=== PATIENT | male | born 1940 | race American Indian/Alaskan Native ===

== ENCOUNTER 2016-08-30 01:48 | Inpatient (IN) | payer MEDICARE ==
[2016-08-30 01:48] VITALS: BMI 23.7
[2016-08-30 02:43] LABS: BASO # 0.1 K/uL (0.0-0.2); EOS # 1.2 K/uL (0.0-0.7); EOS % 11.5 % (0.0-4.0); HEMATOCRIT 50.6 % (35.0-51.0); LYMPH # 2.6 K/uL (1.0-4.3); LYMPH % 24.5 % (20.0-40.0); MEAN CELL VOLUME 96.3 fL (80.0-94.0); MEAN CORPUSCULAR HEMOGLOBIN 31.4 pg (27.0-31.0); MEAN CORPUSCULAR HGB CONC 32.6 g/dL (33.0-37.0); MEAN PLATELET VOLUME 11.6 fL (7.2-11.7); MONO # 0.9 K/uL (0.0-0.8); MONO % 8.6 % (0.0-10.0); NRBC % 0.1 % (0.0-2.0); RED CELL DISTRIBUTION WIDTH 13.8 % (11.5-14.5); WHITE BLOOD COUNT 10.8 K/uL (4.8-10.8)
--- NOTE | 2016-08-30 02:57 | C.PDOC ---
History Of Present Illness 75 y/o male presents to the ED with complains of sudden SOB which onset [employer]. Pt history of COPD. Pt denies chest pain, dizziness, fever, weakness, numbness or any other complaints. Time Seen by Provider: 08/30/16 02:28 Chief Complaint (Nursing): Shortness Of Breath History Per: Patient History/Exam Limitations: no limitations Onset/Duration Of Symptoms: Hrs Current Symptoms Are (Timing): Still Present Severity: Moderate Associated Symptoms: denies: Fever, Chest Pain, Dizziness Recent travel outside of the [place]: No Past Medical History Reviewed: Historical Data, Nursing Documentation, Vital Signs Vital Signs: Last Vital Signs Temp Pulse 82 08/30/16 03:44 Resp 20 08/30/16 02:56 BP 154/110 H 08/30/16 02:56 Pulse Ox 97 08/30/16 06:08 - Medical History PMH: HTN, Hypercholesterolemia Surgical History: Pacemaker (DEFIBRILLATOR) - [employer] Procedures ASSISTANCE WITH RESPIRATORY VENTILATION, 24-96 HRS, CPAP (02/14/16) Family History: States: Unknown Family Hx - Social History Hx Alcohol Use: No Hx Substance Use: No - Immunization History Hx Tetanus Toxoid Vaccination: Yes Hx Influenza Vaccination: Yes Hx Pneumococcal Vaccination: Yes Review Of Systems Except As Marked, All Systems Reviewed And Found Negative. Constitutional: Negative for: Fever Cardiovascular: Negative for: Chest Pain Respiratory: Positive for: Shortness of Breath Neurological: Negative for: Weakness, Numbness, Dizziness Physical Exam - Physical Exam Appears: Non-toxic Skin: Warm, Dry, No Rash Head: Atraumatic, Normacephalic Oral Mucosa: Moist Throat: Normal, No Erythema, Other (no swelling) Neck: Normal ROM, Supple Chest: Symmetrical Respiratory: No Rales, Rhonchi (bilateral expiratory), Wheezing (bilateral expiratory), Other (mild respiratory distress) Extremity: No Pedal Edema Extremity: Bilateral: Atraumatic Neurological/Psych: Oriented x3, Normal Speech, Normal Motor, Normal Sensation ED Course And Treatment - Laboratory Results Result Diagrams: 08/30/16 02:40 08/30/16 02:40 O2 Sat by Pulse Oximetry: 97 (on room air) Pulse Ox Interpretation: Normal - CT Scan/US CTA chest Other Rad Studies (CT/US): Read By Radiologist, Radiology Report Reviewed CT/US Interpretation: EXAM: CT Angiography Chest With Intravenous Contrast. CLINICAL HISTORY: 75 years old, male; Pain; Chest pain; Additional info: Sob/ elevated d-dimer. TECHNIQUE: Axial computed tomographic angiography images of the chest with intravenous. contrast using pulmonary embolism protocol. This CT exam was performed using one or more of the. following dose reduction techniques: automated exposure control, adjustment of the mA and/or kV. according to patient size, and/or use of iterative reconstruction technique. Coronal and sagittal. reformatted images were created and reviewed. COMPARISON : No relevant prior studies available. FINDINGS: Pulmonary arteries: No pulmonary embolism. Aorta: Ectatic descending thoracic aorta measuring 3.7 cm in diameter. No thoracic aortic aneurysm. Lungs: Centrilobular and paraseptal emphysematous changes in the lung apices. 1.0 cm nodule right lower lobe. Bronchial wall thickening and mucus plugging in the lower lobes suggesting bronchitis. Pleural space: Unremarkable. No significant effusion. No pneumothorax. Heart: Unremarkable. No cardiomegaly. No significant pericardial effusion. No evidence of RV. dysfunction. Bones/joints: No acute fracture. No dislocation. Soft tissues: Unremarkable. Lymph nodes: Unremarkable. No enlarged lymph nodes. Tubes, lines and devices: Pacemaker. IMPRESSION: 1. No pulmonary embolism. 2. Centrilobular and paraseptal emphysematous changes in the lung apices. 3. 1.0 cm nodule right lower lobe. In both low-risk and high- risk patients, recommend CT at 3, 9 and. 24 months. Alternatively, consider dynamic contrast-enhanced CT, PET and/or biopsy. 4. Bronchial wall thickening and mucus plugging in the lower lobes suggesting bronchitis. Thank you for allowing us to participate in the care of your patient. Dictated and Authenticated by: Luca Jewell MD. 08/30/2016 5:49 AM Eastern Time ([place] & [place]) Disposition Discussed With : Antoni Issa Doctor Will See Patient In The: Hospital Counseled Patient/Family Regarding: Diagnosis - Disposition Disposition: HOSPITALIZED Disposition Time: 06:08 Condition: STABLE - POA Present On Arrival: None - Clinical Impression Clinical Impression: COPD with exacerbation - Scribe Statement The provider has reviewed the documentation as recorded by the Yane Mcgregor Provider Attestation: All medical record entries made by the Yane were at my direction and personally dictated by me. I have reviewed the chart and agree that the record accurately reflects my personal performance of the history, physical exam, medical decision making, and the department course for this patient. I have also personally directed, reviewed, and agree with the discharge instructions and disposition.
[2016-08-30 03:28] LABS: ALB/GLOB RATIO 1.1 (1.0-2.1); BILIRUBIN,TOTAL 0.4 mg/dL (0.2-1.3); TOTAL PROTEIN 7.7 g/dL (6.3-8.3)
[2016-08-30 03:29] LABS: CALCIUM 9.1 mg/dl (8.6-10.4)
[2016-08-30 03:40] LABS: TROPONIN I 0.02 ng/mL (0.00-0.120)
--- NOTE | 2016-08-30 09:06 | RAD ---
PROCEDURE: CHEST RADIOGRAPH, 1 VIEW HISTORY: SOB COMPARISON: None available. FINDINGS: LUNGS: Clear. PLEURA: No pneumothorax or pleural fluid seen. CARDIOVASCULAR: Mild cardiomegaly OSSEOUS STRUCTURES: No significant abnormalities. VISUALIZED UPPER ABDOMEN: Normal. OTHER FINDINGS: Dual lead pacemaker IMPRESSION: No active disease.
--- NOTE | 2016-08-30 09:39 | CT ---
PROCEDURE: CT Chest with contrast (Pulmonary Angiogram) HISTORY: SOB/ elevated D-dimer COMPARISON: None available. TECHNIQUE: Axial computed tomography images were obtained of the chest in the pulmonary arterial phase of enhancement. Coronal and sagittal reformatted images were created and reviewed. Intravenous contrast dose: 100 cc of Visipaque Radiation dose: Total exam DLP = 307 mGy-cm. FINDINGS: PULMONARY ARTERIES: Unremarkable. No pulmonary embolism. AORTA: No acute findings. No thoracic aortic aneurysm. LUNGS: There is an 8 mm nodule in the superior segment of the right lower lobe. This is seen on image 47 series 4. Three to six-month follow-up is suggested. There is peribronchial thickening bilaterally especially in the lower lobes consistent with bronchitis or bronchiectasis PLEURAL SPACES: Unremarkable. No effusion or pneuomothorax. HEART: Unremarkable. No cardiomegaly. No significant pericardial effusion. LYMPH NODES: No lymphadenopathy. BONES, CHEST WALL: Unremarkable. No fracture or destructive lesion OTHER FINDINGS: The report concurs with the preliminary [facility] report IMPRESSION: No evidence of pulmonary embolus. Peribronchial thickening consistent with bronchitis. 8 mm nodule in the superior segment of the right lower lobe. Follow-up recommended
--- NOTE | 2016-08-30 12:08 | CP.PCM.HP ---
History of Present Illness - History of Present Illness History of Present Illness: 75 yo Male pt with pmh of HTN, HLD,COPD, on Pacemaker c/o sudden onset SOB, productive cough with sputum no fever, nausea, vomiting chronic smoker, quit 3 months ago Present on Admission - Present on Admission Any Indicators Present on Admission: No Past Patient History - Infectious Disease Hx of Infectious Diseases: None - Past Medical History & Family History Past Medical History?: Yes - Past Social History Smoking Status: Never Smoked - CARDIAC Hx Hypercholesterolemia: Yes Hx Hypertension: Yes Hx Pacemaker: Yes (DEFIBRILLATOR) - PULMONARY Hx Respiratory Disorders: No - NEUROLOGICAL Hx Neurological Disorder: No - HEENT Hx HEENT Problems: No - RENAL Hx Chronic Kidney Disease: No - ENDOCRINE/METABOLIC Hx Endocrine Disorders: No - HEMATOLOGICAL/ONCOLOGICAL Hx Blood Disorders: No - INTEGUMENTARY Hx Dermatological Problems: No - MUSCULOSKELETAL/RHEUMATOLOGICAL Hx Musculoskeletal Disorders: No Hx Falls: No - GASTROINTESTINAL Hx Gastrointestinal Disorders: No - GENITOURINARY/GYNECOLOGICAL Hx Genitourinary Disorders: No - PSYCHIATRIC Hx Substance Use: No - SURGICAL HISTORY Other/Comment: PACEMAKER/DEFIBRILLATOR - ANESTHESIA Hx Anesthesia: Yes Hx Anesthesia Reactions: No Meds Home Medications: Home Medication List Medication Instructions Recorded Confirmed Type Amiodarone [Cordarone] 200 mg PO DAILY #30 tab 09/05/16 Rx Fluticasone/Salmeterol 250/50 1 puff INH RQ12 #1 inh 09/05/16 Rx [Advair Diskus 250/50] Furosemide [Lasix] 40 mg PO DAILY #0 tab 09/05/16 Rx Losartan [Cozaar] 50 mg PO Q12H #60 tab 09/05/16 Rx Methylprednisolone [Medrol Dose 4 mg PO DAILY #21 mg 09/05/16 Rx Pack (21 tabs)] Metoprolol Tartrate [Lopressor] 50 mg PO Q12 #60 tab 09/05/16 Rx Montelukast [Singulair] 10 mg PO HS #30 tab 09/05/16 Rx Tiotropium [Spiriva] 18 mcg INH RQ24 #30 cap 09/05/16 Rx Allergies/Adverse Reactions: Allergies Allergy/AdvReac Type Severity Reaction Status Date / Time No Known Allergies Allergy Verified 08/30/16 01:54 Physical Exam - Constitutional Appears: Well - Eye Exam Eye Exam: EOMI, Normal appearance, PERRL Pupil Exam: NORMAL ACCOMODATION, PERRL - ENT Exam ENT Exam: Mucous Membranes Moist, Normal Exam - Neck Exam Neck exam: Positive for: Normal Inspection - Respiratory Exam Respiratory Exam: Decreased Breath Sounds - Cardiovascular Exam Cardiovascular Exam: REGULAR RHYTHM, +S1, +S2 - GI/Abdominal Exam GI & Abdominal Exam: Diminished Bowel Sounds, Soft - Rectal Exam Rectal Exam: Deferred Results - Vital Signs Recent Vital Signs: Last Vital Signs Temp 97.3 F L 08/30/16 12:00 Pulse 80 08/30/16 12:00 Resp 21 08/30/16 12:00 BP 152/97 H 08/30/16 12:00 Pulse Ox 97 08/30/16 12:00 - Labs Result Diagrams: 09/05/16 07:26 09/05/16 07:26 Assessment & Plan (1) CHF (congestive heart failure), NYHA class II Status: Acute (2) COPD (chronic obstructive pulmonary disease) Status: Acute (3) COPD with exacerbation Status: Acute (4) Dyspnea Status: Acute (5) Hypertension Status: Acute (6) Respiratory distress Status: Acute - Assessment and Plan (Free Text) Plan: labs and meds reviewed laurie aspirin lovenox cozaar pulmo consult solumedrol singulair lasix antibiotics
[2016-08-30] MEDS ORDERED: Albuterol-Ipratrop 3 mg / 0.5 (3 ml) UD INH PRN (12:37)
[2016-08-30] MEDS: Albuterol-Ipratrop 3 mg / 0.5 (3 ml) UD INH SCH ×2 (13:24→20:35)
[2016-08-30] MEDS: Moxifloxacin IV 400mg/250ml NS 250 ML IVPB SCH (14:31)
[2016-08-30] MEDS: MethylPREDNISolone 40 mg Vial IVP SCH ×2 (16:41→21:37)
--- NOTE | 2016-08-30 18:48 | CP.PCM.CON ---
History of Present Illness - History of Present Illness History of Present Illness: Reason for consultation: Shortness of breath 75-year-old male with history of COPD, hypercholesterolemia, pacemaker insertion presented to emergency room with sudden onset shortness of breath. Also complaining of cough productive of copious amount of purulent phlegm. Denies fever or chills. Patient states he had long history of smoking and quit 3 months ago Review of Systems - Review of Systems All systems: reviewed and no additional remarkable complaints except (Shortness of breath and productive cough) Past Patient History - Infectious Disease Hx of Infectious Diseases: None - Past Medical History & Family History Past Medical History?: Yes - Past Social History Smoking Status: Former Smoker - CARDIAC Hx Hypercholesterolemia: Yes Hx Hypertension: Yes - PULMONARY Hx Chronic Obstructive Pulmonary Disease (COPD): Yes - NEUROLOGICAL Hx Neurological Disorder: No - HEENT Hx HEENT Problems: No - RENAL Hx Chronic Kidney Disease: No - ENDOCRINE/METABOLIC Hx Endocrine Disorders: No - HEMATOLOGICAL/ONCOLOGICAL Hx Blood Disorders: No - INTEGUMENTARY Hx Dermatological Problems: No - MUSCULOSKELETAL/RHEUMATOLOGICAL Hx Musculoskeletal Disorders: No Hx Falls: No - GASTROINTESTINAL Hx Gastrointestinal Disorders: No - GENITOURINARY/GYNECOLOGICAL Hx Genitourinary Disorders: No - PSYCHIATRIC Hx Substance Use: No - SURGICAL HISTORY Other/Comment: PACEMAKER/DEFIBRILLATOR - ANESTHESIA Hx Anesthesia: Yes Hx Anesthesia Reactions: No Meds Allergies/Adverse Reactions: Allergies Allergy/AdvReac Type Severity Reaction Status Date / Time No Known Allergies Allergy Verified 08/30/16 01:54 - Medications Medications: Current Medications Albuterol/Ipratropium (Duoneb 3 Mg/0.5 Mg (3 Ml) Ud) 3 ml INH RQ6 [facility] Last Admin: 08/30/16 13:24 Dose: 3 ml Aspirin (Aspirin Chewable) 81 mg PO DAILY [facility] Enoxaparin Sodium (Lovenox) 40 mg SC DAILY [facility] Furosemide (Lasix) 40 mg PO DAILY [facility] Moxifloxacin HCl (Avelox Iv 400mg/250ml Ns) 250 mls @ 167 mls/hr IVPB Q24H [facility] Stop: 09/09/16 14:01 Last Admin: 08/30/16 14:31 Dose: 167 mls/hr Losartan Potassium (Cozaar) 50 mg PO Q12H [facility] Last Admin: 08/30/16 13:54 Dose: 50 mg Methylprednisolone (Solu-Medrol) 60 mg IVP Q8 [facility] Stop: 09/04/16 16:01 Last Admin: 08/30/16 16:41 Dose: 60 mg Metoprolol Tartrate (Lopressor) 25 mg PO Q12 [facility] Last Admin: 08/30/16 13:54 Dose: 25 mg Montelukast Sodium (Singulair) 10 mg PO HS [facility] Multivitamins/Minerals (Therapeutic-M Tab) 1 tab PO DAILY [facility] Pantoprazole Sodium (Protonix Ec Tab) 40 mg PO DAILY [facility] Rosuvastatin Calcium (Crestor) 10 mg PO HS [facility] Fluticasone/Salmeterol (Advair Diskus 250/50) 1 puff INH RQ12 [facility] Physical Exam - Constitutional Appears: No Acute Distress - Head Exam Head Exam: ATRAUMATIC, NORMOCEPHALIC - Eye Exam Eye Exam: Normal appearance - ENT Exam ENT Exam: Mucous Membranes Moist - Respiratory Exam Respiratory Exam: Decreased Breath Sounds - Cardiovascular Exam Cardiovascular Exam: REGULAR RHYTHM - Extremities Exam Extremities exam: Positive for: normal inspection Results - Vital Signs Recent Vital Signs: Last Vital Signs Temp 97.5 F L 08/30/16 16:00 Pulse 81 08/30/16 16:00 Resp 20 08/30/16 16:00 BP 130/86 08/30/16 16:00 Pulse Ox 99 08/30/16 16:00 - Labs Result Diagrams: 08/30/16 02:40 08/30/16 02:40 Assessment & Plan (1) COPD with exacerbation Status: Acute Comment: Continue IV steroids and nebulizer treatment and antibiotics. Pulmonary function test when stable
[2016-08-30] MEDS: Fluticasone-Salmeterol 250-50mcg Diskus INH SCH (20:34)
[2016-08-31] MEDS: Albuterol-Ipratrop 3 mg / 0.5 (3 ml) UD INH SCH ×4 (00:59→19:49)
[2016-08-31] MEDS: MethylPREDNISolone 40 mg Vial IVP SCH ×3 (05:30→21:50)
[2016-08-31] MEDS: Tiotropium 18 mcg Cap For Inhalation INH SCH (09:15)
[2016-08-31] MEDS: Fluticasone-Salmeterol 250-50mcg Diskus INH SCH ×2 (09:15→19:51)
--- NOTE | 2016-08-31 09:27 | CP.PCM.PN ---
Subjective - Date & Time of Evaluation Date of Evaluation: 08/31/16 Time of Evaluation: 09:10 - Subjective Subjective: Pt was seen and examined at bedside, no acute distress, no acute events overnight. The pt reported that he felt better today after medications and slept without the use of the BIPAP and has not used it since admission to the hospital. Pt reports good response from nasal cannula use. Pt denies n/v/f/c, chest pain, palpitations, headache, dyspnea at this time. Objective - Vital Signs/Intake and Output Vital Signs (last 24 hours): Temp Pulse Resp BP Pulse Ox 98.3 F 98 H 18 134/89 95 08/31/16 08:00 08/31/16 08:00 08/31/16 08:00 08/31/16 08:00 08/31/16 08:00 Intake and Output: 08/31/16 08/31/16 06:59 18:59 Intake Total 240 Balance 240 - Medications Medications: Current Medications Albuterol/Ipratropium (Duoneb 3 Mg/0.5 Mg (3 Ml) Ud) 3 ml INH RQ6 [facility] Last Admin: 08/31/16 07:11 Dose: 3 ml Aspirin (Aspirin Chewable) 81 mg PO DAILY [facility] Enoxaparin Sodium (Lovenox) 40 mg SC DAILY [facility] Furosemide (Lasix) 40 mg PO DAILY [facility] Moxifloxacin HCl (Avelox Iv 400mg/250ml Ns) 250 mls @ 167 mls/hr IVPB Q24H [facility] Stop: 09/09/16 14:01 Last Admin: 08/30/16 14:31 Dose: 167 mls/hr Losartan Potassium (Cozaar) 50 mg PO Q12H [facility] Last Admin: 08/30/16 21:38 Dose: 50 mg Methylprednisolone (Solu-Medrol) 60 mg IVP Q8 [facility] Stop: 09/04/16 16:01 Last Admin: 08/31/16 05:30 Dose: 60 mg Metoprolol Tartrate (Lopressor) 25 mg PO Q12 [facility] Last Admin: 08/30/16 21:37 Dose: 25 mg Montelukast Sodium (Singulair) 10 mg PO HS [facility] Last Admin: 08/30/16 21:38 Dose: 10 mg Multivitamins/Minerals (Therapeutic-M Tab) 1 tab PO DAILY [facility] Pantoprazole Sodium (Protonix Ec Tab) 40 mg PO DAILY [facility] Rosuvastatin Calcium (Crestor) 10 mg PO HS [facility] Last Admin: 08/30/16 21:37 Dose: 10 mg Fluticasone/Salmeterol (Advair Diskus 250/50) 1 puff INH RQ12 [facility] Last Admin: 08/30/16 20:34 Dose: Not Given Tiotropium [place] (Spiriva) 18 mcg INH RQ24 [facility] - Constitutional Appears: Well, Non-toxic, No Acute Distress - Head Exam Head Exam: NORMAL INSPECTION - Eye Exam Eye Exam: Normal appearance - Respiratory Exam Respiratory Exam: Decreased Breath Sounds, Wheezes - Cardiovascular Exam Cardiovascular Exam: +S1, +S2 - Neurological Exam Neurological Exam: Alert, Awake, Oriented x3 - Skin Skin Exam: Dry, Normal Color, Warm Assessment and Plan (1) COPD with exacerbation Assessment & Plan: Continue nebulizer treatments Continue IV steroids PFT outpt after discharge for evaluation of COPD Status: Acute
[2016-08-31] MEDS: Pantoprazole 40 mg EC Tab PO SCH (10:04)
[2016-08-31] MEDS: Multivitamin With Minerals Tab PO SCH (10:04)
[2016-08-31] MEDS: Enoxaparin 40 mg Syringe SC SCH (10:04)
--- NOTE | 2016-08-31 10:08 | CP.PCM.PN ---
Subjective - Date & Time of Evaluation Date of Evaluation: 08/31/16 Time of Evaluation: 11:40 - Subjective Subjective: clinically same Objective - Vital Signs/Intake and Output Vital Signs (last 24 hours): Temp Pulse Resp BP Pulse Ox 98.3 F 86 20 108/64 96 08/31/16 08:00 08/31/16 10:07 08/31/16 10:07 08/31/16 10:06 08/31/16 10:07 Intake and Output: 08/31/16 08/31/16 06:59 18:59 Intake Total 240 Balance 240 - Medications Medications: Current Medications Albuterol/Ipratropium (Duoneb 3 Mg/0.5 Mg (3 Ml) Ud) 3 ml INH RQ6 [facility] Last Admin: 08/31/16 07:11 Dose: 3 ml Aspirin (Aspirin Chewable) 81 mg PO DAILY [facility] Last Admin: 08/31/16 10:04 Dose: 81 mg Enoxaparin Sodium (Lovenox) 40 mg SC DAILY [facility] Last Admin: 08/31/16 10:04 Dose: 40 mg Furosemide (Lasix) 40 mg PO DAILY [facility] Last Admin: 08/31/16 10:06 Dose: 40 mg Moxifloxacin HCl (Avelox Iv 400mg/250ml Ns) 250 mls @ 167 mls/hr IVPB Q24H [facility] Stop: 09/09/16 14:01 Last Admin: 08/30/16 14:31 Dose: 167 mls/hr Losartan Potassium (Cozaar) 50 mg PO Q12H [facility] Last Admin: 08/31/16 10:04 Dose: 50 mg Methylprednisolone (Solu-Medrol) 60 mg IVP Q8 [facility] Stop: 09/04/16 16:01 Last Admin: 08/31/16 05:30 Dose: 60 mg Metoprolol Tartrate (Lopressor) 25 mg PO Q12 [facility] Last Admin: 08/31/16 10:05 Dose: 25 mg Montelukast Sodium (Singulair) 10 mg PO HS [facility] Last Admin: 08/30/16 21:38 Dose: 10 mg Multivitamins/Minerals (Therapeutic-M Tab) 1 tab PO DAILY [facility] Last Admin: 08/31/16 10:04 Dose: 1 tab Pantoprazole Sodium (Protonix Ec Tab) 40 mg PO DAILY [facility] Last Admin: 08/31/16 10:04 Dose: 40 mg Rosuvastatin Calcium (Crestor) 10 mg PO HS [facility] Last Admin: 08/30/16 21:37 Dose: 10 mg Fluticasone/Salmeterol (Advair Diskus 250/50) 1 puff INH RQ12 [facility] Last Admin: 08/31/16 09:15 Dose: 1 puff Tiotropium [place] (Spiriva) 18 mcg INH RQ24 [facility] Last Admin: 08/31/16 09:15 Dose: 18 mcg - Constitutional Appears: Well - Head Exam Head Exam: ATRAUMATIC, NORMAL INSPECTION, NORMOCEPHALIC - Eye Exam Eye Exam: EOMI, Normal appearance, PERRL Pupil Exam: NORMAL ACCOMODATION, PERRL - ENT Exam ENT Exam: Mucous Membranes Moist, Normal Exam - Neck Exam Neck Exam: Full ROM, Normal Inspection. absent: Lymphadenopathy - Respiratory Exam Respiratory Exam: Decreased Breath Sounds - Cardiovascular Exam Cardiovascular Exam: REGULAR RHYTHM, +S1, +S2 - GI/Abdominal Exam GI & Abdominal Exam: Soft, Diminished Bowel Sounds - Rectal Exam Rectal Exam: Deferred Assessment and Plan (1) CHF (congestive heart failure), NYHA class II Status: Acute (2) COPD (chronic obstructive pulmonary disease) Status: Acute (3) COPD with exacerbation Status: Acute (4) Dyspnea Status: Acute (5) Hypertension Status: Acute (6) Respiratory distress Status: Acute - Assessment and Plan (Free Text) Plan: feeling better but still mild SOB Dr Rock sullivan solumedrol duoneb PE ruled out Avelox BP meds
--- NOTE | 2016-08-31 11:19 | CP.PCM.PN ---
Subjective - Date & Time of Evaluation Date of Evaluation: 09/03/16 Time of Evaluation: 10:00 - Subjective Subjective: Dr. Issa service: Patient seen and discussed with Dr. Issa. Patient is still complaining of shorntess of breath but is feeling a little better. He is still coughing with some chest tightness. Objective - Vital Signs/Intake and Output Vital Signs (last 24 hours): Temp Pulse Resp BP Pulse Ox 98.3 F 86 20 108/64 96 08/31/16 08:00 08/31/16 10:07 08/31/16 10:07 08/31/16 10:06 08/31/16 10:07 Intake and Output: 08/31/16 08/31/16 06:59 18:59 Intake Total 240 Balance 240 - Medications Medications: Current Medications Albuterol/Ipratropium (Duoneb 3 Mg/0.5 Mg (3 Ml) Ud) 3 ml INH RQ6 [facility] Last Admin: 08/31/16 07:11 Dose: 3 ml Aspirin (Aspirin Chewable) 81 mg PO DAILY [facility] Last Admin: 08/31/16 10:04 Dose: 81 mg Enoxaparin Sodium (Lovenox) 40 mg SC DAILY [facility] Last Admin: 08/31/16 10:04 Dose: 40 mg Furosemide (Lasix) 40 mg PO DAILY [facility] Last Admin: 08/31/16 10:06 Dose: 40 mg Moxifloxacin HCl (Avelox Iv 400mg/250ml Ns) 250 mls @ 167 mls/hr IVPB Q24H [facility] Stop: 09/09/16 14:01 Last Admin: 08/30/16 14:31 Dose: 167 mls/hr Losartan Potassium (Cozaar) 50 mg PO Q12H [facility] Last Admin: 08/31/16 10:04 Dose: 50 mg Methylprednisolone (Solu-Medrol) 60 mg IVP Q8 [facility] Stop: 09/04/16 16:01 Last Admin: 08/31/16 05:30 Dose: 60 mg Metoprolol Tartrate (Lopressor) 25 mg PO Q12 [facility] Last Admin: 08/31/16 10:05 Dose: 25 mg Montelukast Sodium (Singulair) 10 mg PO HS [facility] Last Admin: 08/30/16 21:38 Dose: 10 mg Multivitamins/Minerals (Therapeutic-M Tab) 1 tab PO DAILY [facility] Last Admin: 08/31/16 10:04 Dose: 1 tab Pantoprazole Sodium (Protonix Ec Tab) 40 mg PO DAILY [facility] Last Admin: 08/31/16 10:04 Dose: 40 mg Rosuvastatin Calcium (Crestor) 10 mg PO HS [facility] Last Admin: 08/30/16 21:37 Dose: 10 mg Fluticasone/Salmeterol (Advair Diskus 250/50) 1 puff INH RQ12 [facility] Last Admin: 08/31/16 09:15 Dose: 1 puff Tiotropium [place] (Spiriva) 18 mcg INH RQ24 [facility] Last Admin: 08/31/16 09:15 Dose: 18 mcg - Constitutional Appears: Non-toxic - Head Exam Head Exam: NORMAL INSPECTION - Eye Exam Eye Exam: Normal appearance - ENT Exam ENT Exam: Normal Exam - Neck Exam Neck Exam: Normal Inspection - Respiratory Exam Respiratory Exam: Wheezes. absent: Clear to Ausculation Bilateral, Rhonchi - Cardiovascular Exam Cardiovascular Exam: REGULAR RHYTHM - GI/Abdominal Exam GI & Abdominal Exam: Soft, Normal Bowel Sounds. absent: Tenderness - Extremities Exam Extremities Exam: Normal Inspection - Back Exam Back Exam: NORMAL INSPECTION - Neurological Exam Neurological Exam: Alert - Psychiatric Exam Psychiatric exam: Normal Affect, Normal Mood - Skin Skin Exam: Normal Color Assessment and Plan (1) COPD with exacerbation Assessment & Plan: Dr. Wilkerson consulted, IV steroids with duoneb and home medications as well. CT is negative for PE Avelox 400mg IV daily Status: Acute (2) Hypertension Assessment & Plan: continue home medication Status: Acute
[2016-08-31] MEDS: Moxifloxacin IV 400mg/250ml NS 250 ML IVPB SCH (13:51)
[2016-08-31 14:03] LABS: BASO % 0.1 % (0.0-2.0); HEMATOCRIT 48.2 % (35.0-51.0); LYMPH # 0.6 K/uL (1.0-4.3); LYMPH % 3.4 % (20.0-40.0); MEAN CELL VOLUME 96.6 fL (80.0-94.0); MEAN CORPUSCULAR HEMOGLOBIN 30.7 pg (27.0-31.0); MEAN CORPUSCULAR HGB CONC 31.8 g/dL (33.0-37.0); MEAN PLATELET VOLUME 11.8 fL (7.2-11.7); MONO # 1.1 K/uL (0.0-0.8); MONO % 5.7 % (0.0-10.0); PLATELET COUNT 138 K/uL (130-400); WHITE BLOOD COUNT 18.6 K/uL (4.8-10.8)
[2016-08-31 14:19] LABS: POTASSIUM 4.3 mmol/L (3.6-5.2)
[2016-08-31 14:21] LABS: BILIRUBIN,TOTAL 0.3 mg/dL (0.2-1.3); TOTAL PROTEIN 7.6 g/dL (6.3-8.3)
[2016-08-31 14:22] LABS: CALCIUM 9.3 mg/dl (8.6-10.4); MAGNESIUM 2.2 mg/dL (1.6-2.3); PHOSPHOROUS 3.9 mg/dL (2.5-4.5)
[2016-08-31 14:41] LABS: NEUTROPHIL 92 % (50-75); TOTAL CELLS COUNTED 100
[2016-08-31 14:43] LABS: GIANT PLATELETS PRESENT
--- NOTE | 2016-09-01 00:12 | CP.PCM.PN ---
Subjective - Date & Time of Evaluation Date of Evaluation: 09/01/16 Time of Evaluation: 00:10 - Subjective Subjective: House resident paged because patient had a couple runs of Vtach on the tele monitor. EKg and KENDELL ordered. Patient is aymptomatic Vital stable HR 68. Will monitor. Suggest Cardio consult in the morning. Objective - Vital Signs/Intake and Output Vital Signs (last 24 hours): Temp Pulse Resp BP Pulse Ox 97.7 F 80 20 120/82 96 08/31/16 15:50 08/31/16 20:53 08/31/16 15:50 08/31/16 21:50 08/31/16 15:50 Intake and Output: 08/31/16 09/01/16 18:59 06:59 Intake Total 300 Balance 300 - Medications Medications: Current Medications Albuterol/Ipratropium (Duoneb 3 Mg/0.5 Mg (3 Ml) Ud) 3 ml INH RQ6 [facility] Last Admin: 08/31/16 19:49 Dose: 3 ml Aspirin (Aspirin Chewable) 81 mg PO DAILY [facility] Last Admin: 08/31/16 10:04 Dose: 81 mg Enoxaparin Sodium (Lovenox) 40 mg SC DAILY [facility] Last Admin: 08/31/16 10:04 Dose: 40 mg Furosemide (Lasix) 40 mg PO DAILY [facility] Last Admin: 08/31/16 10:06 Dose: 40 mg Moxifloxacin HCl (Avelox Iv 400mg/250ml Ns) 250 mls @ 167 mls/hr IVPB Q24H [facility] Stop: 09/09/16 14:01 Last Admin: 08/31/16 13:51 Dose: 167 mls/hr Losartan Potassium (Cozaar) 50 mg PO Q12H [facility] Last Admin: 08/31/16 21:49 Dose: 50 mg Methylprednisolone (Solu-Medrol) 40 mg IVP Q8 [facility] Stop: 09/04/16 16:01 Last Admin: 08/31/16 21:50 Dose: 40 mg Metoprolol Tartrate (Lopressor) 25 mg PO Q12 [facility] Last Admin: 08/31/16 21:50 Dose: 25 mg Montelukast Sodium (Singulair) 10 mg PO HS [facility] Last Admin: 08/31/16 21:49 Dose: 10 mg Multivitamins/Minerals (Therapeutic-M Tab) 1 tab PO DAILY [facility] Last Admin: 08/31/16 10:04 Dose: 1 tab Pantoprazole Sodium (Protonix Ec Tab) 40 mg PO DAILY [facility] Last Admin: 08/31/16 10:04 Dose: 40 mg Rosuvastatin Calcium (Crestor) 10 mg PO HS [facility] Last Admin: 08/31/16 21:49 Dose: 10 mg Fluticasone/Salmeterol (Advair Diskus 250/50) 1 puff INH RQ12 [facility] Last Admin: 08/31/16 19:51 Dose: 1 puff Tiotropium [place] (Spiriva) 18 mcg INH RQ24 [facility] Last Admin: 08/31/16 09:15 Dose: 18 mcg - Labs Labs: 08/31/16 13:56 08/31/16 13:56
[2016-09-01] MEDS: Albuterol-Ipratrop 3 mg / 0.5 (3 ml) UD INH SCH ×3 (01:32→20:01)
[2016-09-01] MEDS: MethylPREDNISolone 40 mg Vial IVP SCH ×3 (05:28→22:07)
--- NOTE | 2016-09-01 06:42 | CARD ---
APPROVED REPORT EKG Measurement Heart [id number] <Conclusion> Undetermined rhythm Left anterior fascicular block Anteroseptal infarct, age undetermined ST & T wave abnormality, consider lateral ischemia Abnormal ECG
[2016-09-01 08:16] LABS: BASO % 0.2 % (0.0-2.0); HEMATOCRIT 43.6 % (35.0-51.0); LYMPH # 0.6 K/uL (1.0-4.3); LYMPH % 3.5 % (20.0-40.0); MEAN CORPUSCULAR HEMOGLOBIN 30.9 pg (27.0-31.0); MEAN CORPUSCULAR HGB CONC 32.2 g/dL (33.0-37.0); MEAN PLATELET VOLUME 11.4 fL (7.2-11.7); MONO # 0.8 K/uL (0.0-0.8); MONO % 4.6 % (0.0-10.0); PLATELET COUNT 135 K/uL (130-400); WHITE BLOOD COUNT 17.2 K/uL (4.8-10.8)
[2016-09-01 08:36] LABS: POTASSIUM 4.5 mmol/L (3.6-5.2)
[2016-09-01 08:38] LABS: ALB/GLOB RATIO 1.1 (1.0-2.1); BILIRUBIN,TOTAL 0.2 mg/dL (0.2-1.3); TOTAL PROTEIN 6.4 g/dL (6.3-8.3)
[2016-09-01 08:39] LABS: CALCIUM 8.9 mg/dl (8.6-10.4); MAGNESIUM 2.4 mg/dL (1.6-2.3); PHOSPHOROUS 4.7 mg/dL (2.5-4.5)
[2016-09-01 10:31] LABS: NEUTROPHIL 90 % (50-75); TOTAL CELLS COUNTED 100
[2016-09-01 10:32] LABS: LARGE PLATELETS PRESENT
[2016-09-01] MEDS: Multivitamin With Minerals Tab PO SCH (10:53)
[2016-09-01] MEDS: Pantoprazole 40 mg EC Tab PO SCH (10:53)
[2016-09-01] MEDS: Enoxaparin 40 mg Syringe SC SCH (10:54)
[2016-09-01] MEDS: Fluticasone-Salmeterol 250-50mcg Diskus INH SCH ×2 (12:12→20:00)
[2016-09-01] MEDS: Tiotropium 18 mcg Cap For Inhalation INH SCH (12:12)
--- NOTE | 2016-09-01 14:43 | CP.PCM.PN ---
Subjective - Date & Time of Evaluation Date of Evaluation: 09/01/16 Time of Evaluation: 11:20 - Subjective Subjective: clinically same Objective - Vital Signs/Intake and Output Vital Signs (last 24 hours): Temp Pulse Resp BP Pulse Ox 98.0 F 93 H 22 137/92 H 96 09/01/16 08:07 09/01/16 08:07 09/01/16 08:07 09/01/16 10:53 09/01/16 08:07 Intake and Output: 09/01/16 09/01/16 06:59 18:59 Intake Total 300 Balance 300 - Medications Medications: Current Medications Albuterol/Ipratropium (Duoneb 3 Mg/0.5 Mg (3 Ml) Ud) 3 ml INH RQ6 [facility] Last Admin: 09/01/16 12:12 Dose: 3 ml Aspirin (Aspirin Chewable) 81 mg PO DAILY [facility] Last Admin: 09/01/16 10:54 Dose: 81 mg Enoxaparin Sodium (Lovenox) 40 mg SC DAILY [facility] Last Admin: 09/01/16 10:54 Dose: 40 mg Furosemide (Lasix) 40 mg PO DAILY [facility] Last Admin: 09/01/16 10:53 Dose: 40 mg Moxifloxacin HCl (Avelox Iv 400mg/250ml Ns) 250 mls @ 167 mls/hr IVPB Q24H [facility] Stop: 09/09/16 14:01 Last Admin: 08/31/16 13:51 Dose: 167 mls/hr Losartan Potassium (Cozaar) 50 mg PO Q12H [facility] Last Admin: 09/01/16 10:57 Dose: 50 mg Methylprednisolone (Solu-Medrol) 40 mg IVP Q8 [facility] Stop: 09/04/16 16:01 Last Admin: 09/01/16 13:22 Dose: 40 mg Metoprolol Tartrate (Lopressor) 25 mg PO Q12 [facility] Last Admin: 09/01/16 10:53 Dose: 25 mg Montelukast Sodium (Singulair) 10 mg PO HS [facility] Last Admin: 08/31/16 21:49 Dose: 10 mg Multivitamins/Minerals (Therapeutic-M Tab) 1 tab PO DAILY [facility] Last Admin: 09/01/16 10:53 Dose: 1 tab Pantoprazole Sodium (Protonix Ec Tab) 40 mg PO DAILY [facility] Last Admin: 09/01/16 10:53 Dose: 40 mg Rosuvastatin Calcium (Crestor) 10 mg PO HS [facility] Last Admin: 08/31/16 21:49 Dose: 10 mg Fluticasone/Salmeterol (Advair Diskus 250/50) 1 puff INH RQ12 [facility] Last Admin: 09/01/16 12:12 Dose: 1 puff Tiotropium [place] (Spiriva) 18 mcg INH RQ24 [facility] Last Admin: 09/01/16 12:12 Dose: 18 mcg - Labs Labs: 09/01/16 08:07 09/01/16 08:07 - Constitutional Appears: Well - Head Exam Head Exam: ATRAUMATIC, NORMAL INSPECTION, NORMOCEPHALIC - Eye Exam Eye Exam: EOMI, Normal appearance, PERRL Pupil Exam: NORMAL ACCOMODATION, PERRL - ENT Exam ENT Exam: Mucous Membranes Moist, Normal Exam - Neck Exam Neck Exam: Full ROM, Normal Inspection. absent: Lymphadenopathy - Respiratory Exam Respiratory Exam: Decreased Breath Sounds - Cardiovascular Exam Cardiovascular Exam: REGULAR RHYTHM, +S1, +S2 - GI/Abdominal Exam GI & Abdominal Exam: Soft, Diminished Bowel Sounds - Rectal Exam Rectal Exam: Deferred Assessment and Plan (1) CHF (congestive heart failure), NYHA class II Status: Acute (2) COPD (chronic obstructive pulmonary disease) Status: Acute (3) COPD with exacerbation Status: Acute (4) Dyspnea Status: Acute (5) Hypertension Status: Acute (6) Respiratory distress Status: Acute - Assessment and Plan (Free Text) Plan: dyspnea on minimal exertion better than before laurie Avelox Cardio consult duoneb solumedrol
[2016-09-01] MEDS: Moxifloxacin IV 400mg/250ml NS 250 ML IVPB SCH (16:12)
--- NOTE | 2016-09-01 18:03 | CP.PCM.PN ---
Subjective - Date & Time of Evaluation Date of Evaluation: 09/01/16 Time of Evaluation: 10:25 - Subjective Subjective: Patient seen and examined Complaining of dyspnea on minimal exertion Also complaining of slight cough productive of clear phlegm Denies fever or chills, denies chest pain Objective - Vital Signs/Intake and Output Vital Signs (last 24 hours): Temp Pulse Resp BP Pulse Ox 97.5 F L 82 20 129/79 98 09/01/16 16:21 09/01/16 16:21 09/01/16 16:21 09/01/16 16:21 09/01/16 16:21 Intake and Output: 09/01/16 09/01/16 06:59 18:59 Intake Total 300 450 Balance 300 450 - Medications Medications: Current Medications Albuterol/Ipratropium (Duoneb 3 Mg/0.5 Mg (3 Ml) Ud) 3 ml INH RQ6 [facility] Last Admin: 09/01/16 12:12 Dose: 3 ml Aspirin (Aspirin Chewable) 81 mg PO DAILY [facility] Last Admin: 09/01/16 10:54 Dose: 81 mg Enoxaparin Sodium (Lovenox) 40 mg SC DAILY [facility] Last Admin: 09/01/16 10:54 Dose: 40 mg Furosemide (Lasix) 40 mg PO DAILY [facility] Last Admin: 09/01/16 10:53 Dose: 40 mg Moxifloxacin HCl (Avelox Iv 400mg/250ml Ns) 250 mls @ 167 mls/hr IVPB Q24H [facility] Stop: 09/09/16 14:01 Last Admin: 09/01/16 16:12 Dose: 167 mls/hr Losartan Potassium (Cozaar) 50 mg PO Q12H [facility] Last Admin: 09/01/16 10:57 Dose: 50 mg Methylprednisolone (Solu-Medrol) 40 mg IVP Q8 [facility] Stop: 09/04/16 16:01 Last Admin: 09/01/16 13:22 Dose: 40 mg Metoprolol Tartrate (Lopressor) 25 mg PO Q12 [facility] Last Admin: 09/01/16 10:53 Dose: 25 mg Montelukast Sodium (Singulair) 10 mg PO HS [facility] Last Admin: 08/31/16 21:49 Dose: 10 mg Multivitamins/Minerals (Therapeutic-M Tab) 1 tab PO DAILY [facility] Last Admin: 09/01/16 10:53 Dose: 1 tab Pantoprazole Sodium (Protonix Ec Tab) 40 mg PO DAILY [facility] Last Admin: 09/01/16 10:53 Dose: 40 mg Rosuvastatin Calcium (Crestor) 10 mg PO HS [facility] Last Admin: 08/31/16 21:49 Dose: 10 mg Fluticasone/Salmeterol (Advair Diskus 250/50) 1 puff INH RQ12 [facility] Last Admin: 09/01/16 12:12 Dose: 1 puff Tiotropium [place] (Spiriva) 18 mcg INH RQ24 [facility] Last Admin: 09/01/16 12:12 Dose: 18 mcg - Labs Labs: 09/01/16 08:07 09/01/16 08:07 - Head Exam Head Exam: ATRAUMATIC, NORMOCEPHALIC - ENT Exam ENT Exam: Mucous Membranes Moist - Neck Exam Neck Exam: Normal Inspection - Respiratory Exam Respiratory Exam: Decreased Breath Sounds - Cardiovascular Exam Cardiovascular Exam: REGULAR RHYTHM - GI/Abdominal Exam GI & Abdominal Exam: Soft, Normal Bowel Sounds - Extremities Exam Extremities Exam: Normal Inspection Assessment and Plan (1) COPD with exacerbation Assessment & Plan: Continue nebulizer treatment and IV steroids Continue antibiotics Patient had short run of V. tach Cardiology evaluation Status: Acute
[2016-09-02] MEDS: Albuterol-Ipratrop 3 mg / 0.5 (3 ml) UD INH SCH ×4 (01:33→20:14)
[2016-09-02] MEDS: MethylPREDNISolone 40 mg Vial IVP SCH ×3 (05:54→22:12)
[2016-09-02] MEDS: Tiotropium 18 mcg Cap For Inhalation INH SCH (07:35)
[2016-09-02] MEDS: Fluticasone-Salmeterol 250-50mcg Diskus INH SCH ×2 (07:35→20:14)
--- NOTE | 2016-09-02 07:52 | CP.PCM.CON ---
History of Present Illness - History of Present Illness History of Present Illness: 75 y/o male with h/o chf, cardiomyopathy s/pICD called for eval of chf and ICD no cp some sob tolerating po Review of Systems - Review of Systems Systems not reviewed;Unavailable: Acuity of Condition - Constitutional Constitutional: absent: Headache - EENT Eyes: Change in Vision Ears: absent: Ear Pain Nose/Mouth/Throat: absent: Nasal Discharge - Cardiovascular Cardiovascular: Palpitations - Respiratory Respiratory: absent: Dyspnea on Exertion - Gastrointestinal Gastrointestinal: absent: Abdominal Pain - Genitourinary Genitourinary: absent: Dysuria - Musculoskeletal Musculoskeletal: absent: Back Pain - Integumentary Integumentary: absent: Bleeding Lesions - Neurological Neurological: absent: Tremor - Psychiatric Psychiatric: absent: Anxiety - Endocrine Endocrine: absent: Fatigue - Hematologic/Lymphatic Hematologic: absent: Easy Bruising Past Patient History - Infectious Disease Hx of Infectious Diseases: None - Past Medical History & Family History Past Medical History?: Yes - Past Social History Smoking Status: Former Smoker - CARDIAC Hx Hypercholesterolemia: Yes Hx Hypertension: Yes - PULMONARY Hx Chronic Obstructive Pulmonary Disease (COPD): Yes - NEUROLOGICAL Hx Neurological Disorder: No - HEENT Hx HEENT Problems: No - RENAL Hx Chronic Kidney Disease: No - ENDOCRINE/METABOLIC Hx Endocrine Disorders: No - HEMATOLOGICAL/ONCOLOGICAL Hx Blood Disorders: No - INTEGUMENTARY Hx Dermatological Problems: No - MUSCULOSKELETAL/RHEUMATOLOGICAL Hx Musculoskeletal Disorders: No Hx Falls: No - GASTROINTESTINAL Hx Gastrointestinal Disorders: No - GENITOURINARY/GYNECOLOGICAL Hx Genitourinary Disorders: No - PSYCHIATRIC Hx Substance Use: No - SURGICAL HISTORY Other/Comment: PACEMAKER/DEFIBRILLATOR - ANESTHESIA Hx Anesthesia: Yes Hx Anesthesia Reactions: No Meds Home Medications: Home Medication List Medication Instructions Recorded Confirmed Type Amiodarone [Cordarone] 200 mg PO DAILY #30 tab 09/05/16 Rx Fluticasone/Salmeterol 250/50 1 puff INH RQ12 #1 inh 09/05/16 Rx [Advair Diskus 250/50] Furosemide [Lasix] 40 mg PO DAILY #0 tab 09/05/16 Rx Losartan [Cozaar] 50 mg PO Q12H #60 tab 09/05/16 Rx Methylprednisolone [Medrol Dose 4 mg PO DAILY #21 mg 09/05/16 Rx Pack (21 tabs)] Metoprolol Tartrate [Lopressor] 50 mg PO Q12 #60 tab 09/05/16 Rx Montelukast [Singulair] 10 mg PO HS #30 tab 09/05/16 Rx Tiotropium [Spiriva] 18 mcg INH RQ24 #30 cap 09/05/16 Rx Allergies/Adverse Reactions: Allergies Allergy/AdvReac Type Severity Reaction Status Date / Time No Known Allergies Allergy Verified 08/30/16 01:54 - Medications Medications: Current Medications Albuterol/Ipratropium (Duoneb 3 Mg/0.5 Mg (3 Ml) Ud) 3 ml INH RQ6 [facility] Last Admin: 09/02/16 07:35 Dose: 3 ml Aspirin (Aspirin Chewable) 81 mg PO DAILY [facility] Last Admin: 09/01/16 10:54 Dose: 81 mg Enoxaparin Sodium (Lovenox) 40 mg SC DAILY [facility] Last Admin: 09/01/16 10:54 Dose: 40 mg Furosemide (Lasix) 40 mg PO DAILY [facility] Last Admin: 09/01/16 10:53 Dose: 40 mg Moxifloxacin HCl (Avelox Iv 400mg/250ml Ns) 250 mls @ 167 mls/hr IVPB Q24H [facility] Stop: 09/09/16 14:01 Last Admin: 09/01/16 16:12 Dose: 167 mls/hr Losartan Potassium (Cozaar) 50 mg PO Q12H [facility] Last Admin: 09/01/16 22:06 Dose: 50 mg Methylprednisolone (Solu-Medrol) 40 mg IVP Q8 [facility] Stop: 09/04/16 16:01 Last Admin: 09/02/16 05:54 Dose: 40 mg Metoprolol Tartrate (Lopressor) 25 mg PO Q12 [facility] Last Admin: 09/01/16 22:07 Dose: 25 mg Montelukast Sodium (Singulair) 10 mg PO HS [facility] Last Admin: 09/01/16 22:06 Dose: 10 mg Multivitamins/Minerals (Therapeutic-M Tab) 1 tab PO DAILY [facility] Last Admin: 09/01/16 10:53 Dose: 1 tab Pantoprazole Sodium (Protonix Ec Tab) 40 mg PO DAILY [facility] Last Admin: 09/01/16 10:53 Dose: 40 mg Rosuvastatin Calcium (Crestor) 10 mg PO HS [facility] Last Admin: 09/01/16 22:06 Dose: 10 mg Fluticasone/Salmeterol (Advair Diskus 250/50) 1 puff INH RQ12 [facility] Last Admin: 09/02/16 07:35 Dose: 1 puff Tiotropium [place] (Spiriva) 18 mcg INH RQ24 [facility] Last Admin: 09/02/16 07:35 Dose: 18 mcg Physical Exam - Constitutional Appears: Non-toxic - Head Exam Head Exam: ATRAUMATIC - Eye Exam Eye Exam: Normal appearance - ENT Exam ENT Exam: Mucous Membranes Moist - Respiratory Exam Respiratory Exam: Clear to Auscultation Bilateral, Wheezes - Cardiovascular Exam Cardiovascular Exam: REGULAR RHYTHM - GI/Abdominal Exam GI & Abdominal Exam: Normal Bowel Sounds - Exam External exam: NORMAL EXTERNAL EXAM - Extremities Exam Extremities exam: Positive for: normal inspection - Neurological Exam Neurological exam: Alert - Psychiatric Exam Psychiatric exam: Normal Mood - Skin Skin Exam: Warm Results - Vital Signs Recent Vital Signs: Last Vital Signs Temp 97.4 F L 09/02/16 05:57 Pulse 80 09/02/16 07:36 Resp 20 09/02/16 05:57 BP 134/95 H 09/02/16 05:57 Pulse Ox 98 09/02/16 05:57 - Labs Result Diagrams: 09/05/16 07:26 09/05/16 07:26 Labs: Laboratory Results - last 24 hr 09/01/16 08:07 WBC 17.2 H RBC 4.55 Hgb 14.1 Hct 43.6 MCV 96.0 H MCH 30.9 MCHC 32.2 L RDW 14.0 Plt Count 135 MPV 11.4 Neut % (Auto) 91.7 H Lymph % (Auto) 3.5 L [place] % (Auto) 4.6 Eos % (Auto) 0.0 Baso % (Auto) 0.2 Neut # 15.8 H Lymph # 0.6 L [place] # 0.8 Eos # 0.0 Baso # 0.0 Neutrophils % (Manual) 90 H Band Neutrophils % 2 Lymphocytes % (Manual) 3 L Monocytes % (Manual) 5 Platelet Estimate Normal Large Platelets Present Anisocytosis (manual) Slight Sodium 136 Potassium 4.5 Chloride 101 Carbon Dioxide 23 Anion Gap 17 BUN 41 H Creatinine 1.6 H Est GFR ( Amer) 51 Est GFR (Non-Af Amer) 42 Random Glucose 117 H Calcium 8.9 Phosphorus 4.7 H Magnesium 2.4 H Total Bilirubin 0.2 AST 32 ALT 25 Alkaline Phosphatase 46 Total Creatine Kinase 160 CK-MB (Mass) 3.62 H Troponin I, Quant 0.0130 Total Protein 6.4 Albumin 3.4 L Globulin 3.0 Albumin/Globulin Ratio 1.1 Assessment & Plan (1) CHF (congestive heart failure), NYHA class II Assessment and Plan: continue bp control pulmonsry Dr. Wilkerson will possible add amiodorone for ventricular ectopy ICD interrogation Status: Acute (2) COPD (chronic obstructive pulmonary disease) Status: Acute (3) Hypertension Status: Acute
[2016-09-02] MEDS: Pantoprazole 40 mg EC Tab PO SCH (10:17)
[2016-09-02] MEDS: Enoxaparin 40 mg Syringe SC SCH (10:17)
[2016-09-02] MEDS: Multivitamin With Minerals Tab PO SCH (10:17)
[2016-09-02] MEDS: Moxifloxacin IV 400mg/250ml NS 250 ML IVPB SCH (14:00)
--- NOTE | 2016-09-02 14:16 | CP.PCM.PN ---
Subjective - Date & Time of Evaluation Date of Evaluation: 09/02/16 Time of Evaluation: 13:10 - Subjective Subjective: Pt tolerating po stable Objective - Vital Signs/Intake and Output Vital Signs (last 24 hours): Temp Pulse Resp BP Pulse Ox 97.2 F L 80 20 122/85 99 09/02/16 08:16 09/02/16 11:37 09/02/16 08:16 09/02/16 10:18 09/02/16 08:16 Intake and Output: 09/02/16 09/02/16 06:59 18:59 Intake Total 450 Balance 450 - Medications Medications: Current Medications Albuterol/Ipratropium (Duoneb 3 Mg/0.5 Mg (3 Ml) Ud) 3 ml INH RQ6 [facility] Last Admin: 09/02/16 13:33 Dose: 3 ml Aspirin (Aspirin Chewable) 81 mg PO DAILY [facility] Last Admin: 09/02/16 10:16 Dose: 81 mg Enoxaparin Sodium (Lovenox) 40 mg SC DAILY [facility] Last Admin: 09/02/16 10:17 Dose: 40 mg Furosemide (Lasix) 40 mg PO DAILY [facility] Last Admin: 09/02/16 10:17 Dose: 40 mg Moxifloxacin HCl (Avelox Iv 400mg/250ml Ns) 250 mls @ 167 mls/hr IVPB Q24H [facility] Stop: 09/09/16 14:01 Last Admin: 09/01/16 16:12 Dose: 167 mls/hr Losartan Potassium (Cozaar) 50 mg PO Q12H [facility] Last Admin: 09/02/16 10:31 Dose: 50 mg Methylprednisolone (Solu-Medrol) 40 mg IVP Q8 [facility] Stop: 09/04/16 16:01 Last Admin: 09/02/16 05:54 Dose: 40 mg Metoprolol Tartrate (Lopressor) 25 mg PO Q12 [facility] Last Admin: 09/02/16 10:18 Dose: 25 mg Montelukast Sodium (Singulair) 10 mg PO HS [facility] Last Admin: 09/01/16 22:06 Dose: 10 mg Multivitamins/Minerals (Therapeutic-M Tab) 1 tab PO DAILY [facility] Last Admin: 09/02/16 10:17 Dose: 1 tab Pantoprazole Sodium (Protonix Ec Tab) 40 mg PO DAILY [facility] Last Admin: 09/02/16 10:17 Dose: 40 mg Rosuvastatin Calcium (Crestor) 10 mg PO HS [facility] Last Admin: 09/01/16 22:06 Dose: 10 mg Fluticasone/Salmeterol (Advair Diskus 250/50) 1 puff INH RQ12 [facility] Last Admin: 09/02/16 07:35 Dose: 1 puff Tiotropium [place] (Spiriva) 18 mcg INH RQ24 [facility] Last Admin: 09/02/16 07:35 Dose: 18 mcg - Labs Labs: 09/01/16 08:07 09/01/16 08:07 - Constitutional Appears: Well - Head Exam Head Exam: NORMOCEPHALIC - Eye Exam Eye Exam: Normal appearance - ENT Exam ENT Exam: Mucous Membranes Moist - Respiratory Exam Respiratory Exam: Wheezes - Cardiovascular Exam Cardiovascular Exam: REGULAR RHYTHM - GI/Abdominal Exam GI & Abdominal Exam: Normal Bowel Sounds - Exam External exam: NORMAL EXTERNAL EXAM - Extremities Exam Extremities Exam: Normal Inspection - Neurological Exam Neurological Exam: Alert - Psychiatric Exam Psychiatric exam: Normal Affect - Skin Skin Exam: Warm Assessment and Plan (1) CHF (congestive heart failure), NYHA class II Assessment & Plan: bp stable may d/ctelemetry continue rate control Status: Acute (2) COPD (chronic obstructive pulmonary disease) Status: Acute
--- NOTE | 2016-09-02 16:12 | CP.PCM.PN ---
Subjective - Date & Time of Evaluation Date of Evaluation: 09/02/16 Time of Evaluation: 10:00 - Subjective Subjective: clinically same Objective - Vital Signs/Intake and Output Vital Signs (last 24 hours): Temp Pulse Resp BP Pulse Ox 97.2 F L 80 20 122/85 99 09/02/16 08:16 09/02/16 11:37 09/02/16 08:16 09/02/16 10:18 09/02/16 08:16 Intake and Output: 09/02/16 09/02/16 06:59 18:59 Intake Total 450 Balance 450 - Medications Medications: Current Medications Albuterol/Ipratropium (Duoneb 3 Mg/0.5 Mg (3 Ml) Ud) 3 ml INH RQ6 [facility] Last Admin: 09/02/16 13:33 Dose: 3 ml Aspirin (Aspirin Chewable) 81 mg PO DAILY [facility] Last Admin: 09/02/16 10:16 Dose: 81 mg Enoxaparin Sodium (Lovenox) 40 mg SC DAILY [facility] Last Admin: 09/02/16 10:17 Dose: 40 mg Furosemide (Lasix) 40 mg PO DAILY [facility] Last Admin: 09/02/16 10:17 Dose: 40 mg Moxifloxacin HCl (Avelox Iv 400mg/250ml Ns) 250 mls @ 167 mls/hr IVPB Q24H [facility] Stop: 09/09/16 14:01 Last Admin: 09/01/16 16:12 Dose: 167 mls/hr Losartan Potassium (Cozaar) 50 mg PO Q12H [facility] Last Admin: 09/02/16 10:31 Dose: 50 mg Methylprednisolone (Solu-Medrol) 40 mg IVP Q8 [facility] Stop: 09/04/16 16:01 Last Admin: 09/02/16 15:50 Dose: 40 mg Metoprolol Tartrate (Lopressor) 25 mg PO Q12 [facility] Last Admin: 09/02/16 10:18 Dose: 25 mg Montelukast Sodium (Singulair) 10 mg PO HS [facility] Last Admin: 09/01/16 22:06 Dose: 10 mg Multivitamins/Minerals (Therapeutic-M Tab) 1 tab PO DAILY [facility] Last Admin: 09/02/16 10:17 Dose: 1 tab Pantoprazole Sodium (Protonix Ec Tab) 40 mg PO DAILY [facility] Last Admin: 09/02/16 10:17 Dose: 40 mg Rosuvastatin Calcium (Crestor) 10 mg PO HS [facility] Last Admin: 09/01/16 22:06 Dose: 10 mg Fluticasone/Salmeterol (Advair Diskus 250/50) 1 puff INH RQ12 [facility] Last Admin: 09/02/16 07:35 Dose: 1 puff Tiotropium [place] (Spiriva) 18 mcg INH RQ24 [facility] Last Admin: 09/02/16 07:35 Dose: 18 mcg - Labs Labs: 09/01/16 08:07 09/01/16 08:07 Assessment and Plan (1) CHF (congestive heart failure), NYHA class II Status: Acute (2) COPD (chronic obstructive pulmonary disease) Status: Acute (3) COPD with exacerbation Status: Acute (4) Dyspnea Status: Acute (5) Hypertension Status: Acute (6) Respiratory distress Status: Acute - Assessment and Plan (Free Text) Plan: Dr Rock lakhani lasbrandy avelox singulair advair consults on board
--- NOTE | 2016-09-02 18:37 | CP.PCM.PN ---
Subjective - Date & Time of Evaluation Date of Evaluation: 09/02/16 Time of Evaluation: 16:25 - Subjective Subjective: Patient seen and examined. Still complaining of shortness of breath and cough Afebrile with no chest pain Denies fever or chills Objective - Vital Signs/Intake and Output Vital Signs (last 24 hours): Temp Pulse Resp BP Pulse Ox 97.3 F L 78 20 123/68 98 09/02/16 16:00 09/02/16 16:00 09/02/16 16:00 09/02/16 16:00 09/02/16 16:00 Intake and Output: 09/02/16 09/02/16 06:59 18:59 Intake Total 450 Balance 450 - Medications Medications: Current Medications Albuterol/Ipratropium (Duoneb 3 Mg/0.5 Mg (3 Ml) Ud) 3 ml INH RQ6 [facility] Last Admin: 09/02/16 13:33 Dose: 3 ml Aspirin (Aspirin Chewable) 81 mg PO DAILY [facility] Last Admin: 09/02/16 10:16 Dose: 81 mg Enoxaparin Sodium (Lovenox) 40 mg SC DAILY [facility] Last Admin: 09/02/16 10:17 Dose: 40 mg Furosemide (Lasix) 40 mg PO DAILY [facility] Last Admin: 09/02/16 10:17 Dose: 40 mg Moxifloxacin HCl (Avelox Iv 400mg/250ml Ns) 250 mls @ 167 mls/hr IVPB Q24H [facility] Stop: 09/09/16 14:01 Last Admin: 09/01/16 16:12 Dose: 167 mls/hr Losartan Potassium (Cozaar) 50 mg PO Q12H [facility] Last Admin: 09/02/16 10:31 Dose: 50 mg Methylprednisolone (Solu-Medrol) 40 mg IVP Q8 [facility] Stop: 09/04/16 16:01 Last Admin: 09/02/16 15:50 Dose: 40 mg Metoprolol Tartrate (Lopressor) 25 mg PO Q12 [facility] Last Admin: 09/02/16 10:18 Dose: 25 mg Montelukast Sodium (Singulair) 10 mg PO HS [facility] Last Admin: 09/01/16 22:06 Dose: 10 mg Multivitamins/Minerals (Therapeutic-M Tab) 1 tab PO DAILY [facility] Last Admin: 04/02/17 10:17 Dose: 1 tab Pantoprazole Sodium (Protonix Ec Tab) 40 mg PO DAILY [facility] Last Admin: 09/02/16 10:17 Dose: 40 mg Rosuvastatin Calcium (Crestor) 10 mg PO HS [facility] Last Admin: 09/01/16 22:06 Dose: 10 mg Fluticasone/Salmeterol (Advair Diskus 250/50) 1 puff INH RQ12 [facility] Last Admin: 09/02/16 07:35 Dose: 1 puff Tiotropium [place] (Spiriva) 18 mcg INH RQ24 [facility] Last Admin: 09/02/16 07:35 Dose: 18 mcg - Labs Labs: 09/01/16 08:07 09/01/16 08:07 - Head Exam Head Exam: ATRAUMATIC, NORMOCEPHALIC - Eye Exam Eye Exam: Normal appearance - ENT Exam ENT Exam: Mucous Membranes Moist - Neck Exam Neck Exam: Normal Inspection - Respiratory Exam Respiratory Exam: Decreased Breath Sounds - Cardiovascular Exam Cardiovascular Exam: REGULAR RHYTHM - GI/Abdominal Exam GI & Abdominal Exam: Soft, Normal Bowel Sounds - Extremities Exam Extremities Exam: Normal Inspection Assessment and Plan (1) COPD with exacerbation Assessment & Plan: Taper IV steroids and switched to by mouth prednisone Continue nebulizer treatment Status: Acute
[2016-09-03] MEDS: Albuterol-Ipratrop 3 mg / 0.5 (3 ml) UD INH SCH ×4 (01:35→21:02)
[2016-09-03] MEDS: MethylPREDNISolone 40 mg Vial IVP SCH (05:55)
[2016-09-03] MEDS: Fluticasone-Salmeterol 250-50mcg Diskus INH SCH ×2 (08:30→21:02)
[2016-09-03] MEDS: Tiotropium 18 mcg Cap For Inhalation INH SCH (08:31)
[2016-09-03] MEDS: Enoxaparin 40 mg Syringe SC SCH (10:38)
[2016-09-03] MEDS: Pantoprazole 40 mg EC Tab PO SCH (10:38)
[2016-09-03] MEDS: Multivitamin With Minerals Tab PO SCH (10:38)
--- NOTE | 2016-09-03 10:57 | CP.PCM.PN ---
Addendum entered and electronically signed by Elizabeth Rodriguez DO 09/03/16 11: 17: Patient should be on nasal canula per Dr. wilkerson. Patient switched to nasal canula 3L ABG on room air ordered. Original Note: <Elizabeth Rodriguez - Last Filed: 09/03/16 10:55> Subjective - Date & Time of Evaluation Date of Evaluation: 09/03/16 Time of Evaluation: 07:35 - Subjective Subjective: PGY2 Medicine Note - Dr. Albertina Issa's service: Patient seen and examined at bedside this AM. Patient on BiPap. Patient reports feeling his breathing is better. He does not feel as congested. Patient says he has been coughing a lot and sometimes white phlegm comes up. Patient denies fever, chills, chest pain. Objective - Vital Signs/Intake and Output Vital Signs (last 24 hours): Temp Pulse Resp BP Pulse Ox 97.2 F L 78 18 129/85 100 09/03/16 07:00 09/03/16 08:32 09/03/16 07:00 09/03/16 10:38 09/03/16 07:00 - Medications Medications: Current Medications Albuterol/Ipratropium (Duoneb 3 Mg/0.5 Mg (3 Ml) Ud) 3 ml INH RQ6 [facility] Last Admin: 09/03/16 08:31 Dose: 3 ml Aspirin (Aspirin Chewable) 81 mg PO DAILY [facility] Last Admin: 09/03/16 10:38 Dose: 81 mg Enoxaparin Sodium (Lovenox) 40 mg SC DAILY [facility] Last Admin: 09/03/16 10:38 Dose: 40 mg Furosemide (Lasix) 40 mg PO DAILY [facility] Last Admin: 09/03/16 10:38 Dose: 40 mg Moxifloxacin HCl (Avelox Iv 400mg/250ml Ns) 250 mls @ 167 mls/hr IVPB Q24H [facility] Stop: 09/09/16 14:01 Last Admin: 09/02/16 14:00 Dose: 167 mls/hr Losartan Potassium (Cozaar) 50 mg PO Q12H [facility] Last Admin: 09/03/16 10:38 Dose: 50 mg Methylprednisolone (Solu-Medrol) 40 mg IVP Q8 [facility] Stop: 09/04/16 16:01 Last Admin: 09/03/16 05:55 Dose: 40 mg Metoprolol Tartrate (Lopressor) 50 mg PO Q12 [facility] Last Admin: 09/03/16 10:38 Dose: 50 mg Montelukast Sodium (Singulair) 10 mg PO HS [facility] Last Admin: 09/02/16 22:12 Dose: 10 mg Multivitamins/Minerals (Therapeutic-M Tab) 1 tab PO DAILY [facility] Last Admin: 09/03/16 10:38 Dose: 1 tab Pantoprazole Sodium (Protonix Ec Tab) 40 mg PO DAILY [facility] Last Admin: 09/03/16 10:38 Dose: 40 mg Rosuvastatin Calcium (Crestor) 10 mg PO [facility] Last Admin: 09/02/16 22:12 Dose: 10 mg Fluticasone/Salmeterol (Advair Diskus 250/50) 1 puff INH RQ12 [facility] Last Admin: 09/03/16 08:30 Dose: 1 puff Tiotropium [place] (Spiriva) 18 mcg INH RQ24 [facility] Last Admin: 09/03/16 08:31 Dose: 18 mcg - Labs Labs: 09/01/16 08:07 09/01/16 08:07 - Constitutional Appears: Non-toxic - Head Exam Head Exam: NORMAL INSPECTION - Eye Exam Eye Exam: EOMI - ENT Exam ENT Exam: Mucous Membranes Moist - Respiratory Exam Respiratory Exam: Clear to Ausculation Bilateral, NORMAL BREATHING PATTERN. absent: Rales, Rhonchi, Wheezes - Cardiovascular Exam Cardiovascular Exam: REGULAR RHYTHM, +S1, +S2. absent: Gallop, Rubs, Murmur - GI/Abdominal Exam GI & Abdominal Exam: Soft, Normal Bowel Sounds. absent: Distended, Firm, Tenderness - Extremities Exam Extremities Exam: absent: Pedal Edema - Neurological Exam Neurological Exam: Alert, Oriented x3 - Psychiatric Exam Psychiatric exam: Normal Affect, Normal Mood - Skin Skin Exam: Normal Color, Warm Assessment and Plan - Assessment and Plan (Free Text) Assessment: COPD exacerbation Pulmonology consult - Dr. Wilkerson - help appreciated Duoneb 3ml INH RQ6 BiPAP 50% Solu-Medrol 40mg IVP Q12H (tapered down from Q8 09/03/16) Singulair 10mg PO HS Avelox 400mg IVPB Q24H Advair 250/50mg 1 puff INH Q12H Spiriva 18mcg INH RQ24 Management of BiPAP per Dr. Wilkerson Ventricular tachycardia Cardiology consult - Dr. Waldrop - help appreciated Lopressor 50mg PO Q12 Pulmonary nodule 08/30/[address] - peribronchial thickening consistent with bronchitis. 8mm nodule in superior segment of RLL (please see full report) Repeat CT in 3 months Hypertension ASA 81mg PO daily Lasix 40mg PO daily Losartan 50mg PO Q12H Lopressor 50mg PO Q12H Crestor 10mg PO HS Prophylaxis Protonix 40mg PO daily Lovenox 40mg SC daily <Antoni Issa S - Last Filed: 09/03/16 23:35> Objective - Vital Signs/Intake and Output Vital Signs (last 24 hours): Temp Pulse Resp BP Pulse Ox 97.4 F L 74 20 122/77 98 09/03/16 15:56 09/03/16 22:00 09/03/16 15:56 09/03/16 22:00 09/03/16 15:56 Intake and Output: 09/03/16 09/04/16 18:59 06:59 Intake Total 300 Balance 300 - Medications Medications: Current Medications Albuterol/Ipratropium (Duoneb 3 Mg/0.5 Mg (3 Ml) Ud) 3 ml INH RQ6 [facility] Last Admin: 09/03/16 21:02 Dose: 3 ml Aspirin (Aspirin Chewable) 81 mg PO DAILY [facility] Last Admin: 09/03/16 10:38 Dose: 81 mg Enoxaparin Sodium (Lovenox) 40 mg SC DAILY [facility] Last Admin: 09/03/16 10:38 Dose: 40 mg Furosemide (Lasix) 40 mg PO DAILY [facility] Last Admin: 09/03/16 10:38 Dose: 40 mg Moxifloxacin HCl (Avelox Iv 400mg/250ml Ns) 250 mls @ 167 mls/hr IVPB Q24H [facility] Stop: 09/09/16 14:01 Last Admin: 09/03/16 14:08 Dose: 167 mls/hr Losartan Potassium (Cozaar) 50 mg PO Q12H [facility] Last Admin: 09/03/16 21:34 Dose: 50 mg Methylprednisolone (Solu-Medrol) 40 mg IVP Q12 [facility] Stop: 09/04/16 16:01 Last Admin: 09/03/16 21:35 Dose: 40 mg Metoprolol Tartrate (Lopressor) 50 mg PO Q12 [facility] Last Admin: 09/03/16 21:34 Dose: 50 mg Montelukast Sodium (Singulair) 10 mg PO HS [facility] Last Admin: 09/03/16 21:34 Dose: 10 mg Multivitamins/Minerals (Therapeutic-M Tab) 1 tab PO DAILY [facility] Last Admin: 09/03/16 10:38 Dose: 1 tab Pantoprazole Sodium (Protonix Ec Tab) 40 mg PO DAILY [facility] Last Admin: 09/03/16 10:38 Dose: 40 mg Rosuvastatin Calcium (Crestor) 10 mg PO HS [facility] Last Admin: 09/03/16 21:34 Dose: 10 mg Fluticasone/Salmeterol (Advair Diskus 250/50) 1 puff INH RQ12 [facility] Last Admin: 09/03/16 21:02 Dose: Not Given Tiotropium [place] (Spiriva) 18 mcg INH RQ24 [facility] Last Admin: 09/03/16 08:31 Dose: 18 mcg - Labs Labs: 09/03/16 11:17 09/03/16 11:17 Attending/Attestation - Attestation I have personally seen and examined this patient.: Yes I have fully participated in the care of the patient.: Yes I have reviewed all pertinent clinical information, including history, physical exam and plan: Yes Notes (Text): 09/03/16 23:35 case seen and discuse diwht staff and resident
--- NOTE | 2016-09-03 11:13 | CP.PCM.PN ---
<Lee Drake - Last Filed: 09/03/16 13:58> Subjective - Date & Time of Evaluation Date of Evaluation: 09/03/16 Time of Evaluation: 09:00 - Subjective Subjective: Cardiology Note- Dr. Waldrop' service Patient was seen and examined at bedside. Patient reports no acute complaints at this time. He said his breathing is a lot better than when he first came in. No events overnight. Objective - Vital Signs/Intake and Output Vital Signs (last 24 hours): Temp Pulse Resp BP Pulse Ox 97.2 F L 78 18 129/85 100 09/03/16 07:00 09/03/16 08:32 09/03/16 07:00 09/03/16 10:38 09/03/16 07:00 - Medications Medications: Current Medications Albuterol/Ipratropium (Duoneb 3 Mg/0.5 Mg (3 Ml) Ud) 3 ml INH RQ6 [facility] Last Admin: 09/03/16 08:31 Dose: 3 ml Aspirin (Aspirin Chewable) 81 mg PO DAILY [facility] Last Admin: 09/03/16 10:38 Dose: 81 mg Enoxaparin Sodium (Lovenox) 40 mg SC DAILY [facility] Last Admin: 09/03/16 10:38 Dose: 40 mg Furosemide (Lasix) 40 mg PO DAILY [facility] Last Admin: 09/03/16 10:38 Dose: 40 mg Moxifloxacin HCl (Avelox Iv 400mg/250ml Ns) 250 mls @ 167 mls/hr IVPB Q24H [facility] Stop: 09/09/16 14:01 Last Admin: 09/02/16 14:00 Dose: 167 mls/hr Losartan Potassium (Cozaar) 50 mg PO Q12H [facility] Last Admin: 09/03/16 10:38 Dose: 50 mg Methylprednisolone (Solu-Medrol) 40 mg IVP Q12 [facility] Stop: 09/04/16 16:01 Metoprolol Tartrate (Lopressor) 50 mg PO Q12 [facility] Last Admin: 09/03/16 10:38 Dose: 50 mg Montelukast Sodium (Singulair) 10 mg PO HS [facility] Last Admin: 09/02/16 22:12 Dose: 10 mg Multivitamins/Minerals (Therapeutic-M Tab) 1 tab PO DAILY [facility] Last Admin: 09/03/16 10:38 Dose: 1 tab Pantoprazole Sodium (Protonix Ec Tab) 40 mg PO DAILY [facility] Last Admin: 09/03/16 10:38 Dose: 40 mg Rosuvastatin Calcium (Crestor) 10 mg PO HS [facility] Last Admin: 09/02/16 22:12 Dose: 10 mg Fluticasone/Salmeterol (Advair Diskus 250/50) 1 puff INH RQ12 [facility] Last Admin: 09/03/16 08:30 Dose: 1 puff Tiotropium [place] (Spiriva) 18 mcg INH RQ24 [facility] Last Admin: 09/03/16 08:31 Dose: 18 mcg - Labs Labs: 09/01/16 08:07 09/01/16 08:07 - Constitutional Appears: Non-toxic, No Acute Distress - Head Exam Head Exam: ATRAUMATIC, NORMAL INSPECTION, NORMOCEPHALIC - Eye Exam Pupil Exam: NORMAL ACCOMODATION - ENT Exam ENT Exam: Mucous Membranes Moist - Respiratory Exam Respiratory Exam: Clear to Ausculation Bilateral, NORMAL BREATHING PATTERN. absent: Prolonged Expiratory Phase, Rales, Rhonchi, Wheezes - Cardiovascular Exam Cardiovascular Exam: REGULAR RHYTHM, +S1, +S2 - GI/Abdominal Exam GI & Abdominal Exam: Soft, Normal Bowel Sounds. absent: Tenderness, Diminished Bowel Sounds, Hernia, Hypoactive Bowel Sounds - Extremities Exam Extremities Exam: Normal Capillary Refill, Normal Inspection - Neurological Exam Neurological Exam: Alert, Awake, Oriented x3 - Psychiatric Exam Psychiatric exam: Normal Affect, Normal Mood - Skin Skin Exam: Dry, Intact, Normal Color, Warm Assessment and Plan - Assessment and Plan (Free Text) Assessment: Ventricular tachycardia At least 20 run of V tach noted on tele on 09/03/16 @ 7:59am Increased Lopressor to 50mg PO Q12 Ordered echo We will continue to follow. Case and plan discussed with Dr. Waldrop. <Emma Waldrop - Last Filed: 10/08/16 06:00> Objective - Vital Signs/Intake and Output Vital Signs (last 24 hours): Temp Pulse Resp BP Pulse Ox 97.6 F 76 20 142/94 H 97 09/05/16 07:20 09/05/16 08:00 09/05/16 07:20 09/05/16 10:35 09/05/16 07:20 - Labs Labs: 09/05/16 07:26 09/05/16 07:26 Attending/Attestation - Attestation I have personally seen and examined this patient.: Yes I have fully participated in the care of the patient.: Yes I have reviewed all pertinent clinical information, including history, physical exam and plan: Yes Notes (Text): 10/08/16 06:00 no events overnight icd stable
--- NOTE | 2016-09-03 11:18 | CP.PCM.PN ---
Subjective - Date & Time of Evaluation Date of Evaluation: 09/03/16 Time of Evaluation: 10:20 - Subjective Subjective: Pt was seen and examined at bedside today, no acute events overnight, no acute distress. The pt reports that he is feeling a lot better and that he feels less congestion when he breathes. Pt reports that the slept well and through the night on BIPAP, currently resting comfortably with nasal canula. Objective - Vital Signs/Intake and Output Vital Signs (last 24 hours): Temp Pulse Resp BP Pulse Ox 97.2 F L 78 18 129/85 100 09/03/16 07:00 09/03/16 08:32 09/03/16 07:00 09/03/16 10:38 09/03/16 07:00 - Medications Medications: Current Medications Albuterol/Ipratropium (Duoneb 3 Mg/0.5 Mg (3 Ml) Ud) 3 ml INH RQ6 [facility] Last Admin: 09/03/16 08:31 Dose: 3 ml Aspirin (Aspirin Chewable) 81 mg PO DAILY [facility] Last Admin: 09/03/16 10:38 Dose: 81 mg Enoxaparin Sodium (Lovenox) 40 mg SC DAILY [facility] Last Admin: 09/03/16 10:38 Dose: 40 mg Furosemide (Lasix) 40 mg PO DAILY [facility] Last Admin: 09/03/16 10:38 Dose: 40 mg Moxifloxacin HCl (Avelox Iv 400mg/250ml Ns) 250 mls @ 167 mls/hr IVPB Q24H [facility] Stop: 09/09/16 14:01 Last Admin: 09/02/16 14:00 Dose: 167 mls/hr Losartan Potassium (Cozaar) 50 mg PO Q12H [facility] Last Admin: 09/03/16 10:38 Dose: 50 mg Methylprednisolone (Solu-Medrol) 40 mg IVP Q12 [facility] Stop: 09/04/16 16:01 Metoprolol Tartrate (Lopressor) 50 mg PO Q12 [facility] Last Admin: 09/03/16 10:38 Dose: 50 mg Montelukast Sodium (Singulair) 10 mg PO HS [facility] Last Admin: 09/02/16 22:12 Dose: 10 mg Multivitamins/Minerals (Therapeutic-M Tab) 1 tab PO DAILY [facility] Last Admin: 09/03/16 10:38 Dose: 1 tab Pantoprazole Sodium (Protonix Ec Tab) 40 mg PO DAILY [facility] Last Admin: 09/03/16 10:38 Dose: 40 mg Rosuvastatin Calcium (Crestor) 10 mg PO HS [facility] Last Admin: 09/02/16 22:12 Dose: 10 mg Fluticasone/Salmeterol (Advair Diskus 250/50) 1 puff INH RQ12 [facility] Last Admin: 09/03/16 08:30 Dose: 1 puff Tiotropium [place] (Spiriva) 18 mcg INH RQ24 [facility] Last Admin: 09/03/16 08:31 Dose: 18 mcg - Labs Labs: 09/01/16 08:07 09/01/16 08:07 - Constitutional Appears: Well, Non-toxic, No Acute Distress - Head Exam Head Exam: ATRAUMATIC, NORMAL INSPECTION - Eye Exam Eye Exam: EOMI, Normal appearance - Respiratory Exam Respiratory Exam: Decreased Breath Sounds. absent: Wheezes, Respiratory Distress - Cardiovascular Exam Cardiovascular Exam: +S1, +S2 - Neurological Exam Neurological Exam: Alert, Awake, Oriented x3 - Skin Skin Exam: Dry, Normal Color, Warm Assessment and Plan (1) COPD with exacerbation Assessment & Plan: Patient can be switched to the PO prednisone Continue breathing treatments ABG on room air to evaluate need for home oxygen Check pulse ox after mild exertion Status: Acute
[2016-09-03 11:38] LABS: BASO % 0.1 % (0.0-2.0); HEMATOCRIT 46.4 % (35.0-51.0); LYMPH # 0.4 K/uL (1.0-4.3); LYMPH % 2.6 % (20.0-40.0); MEAN CELL VOLUME 96.2 fL (80.0-94.0); MEAN CORPUSCULAR HEMOGLOBIN 30.6 pg (27.0-31.0); MEAN CORPUSCULAR HGB CONC 31.8 g/dL (33.0-37.0); MEAN PLATELET VOLUME 11.6 fL (7.2-11.7); MONO # 0.7 K/uL (0.0-0.8); MONO % 4.9 % (0.0-10.0); PLATELET COUNT 125 K/uL (130-400); RED CELL DISTRIBUTION WIDTH 14.1 % (11.5-14.5); WHITE BLOOD COUNT 13.6 K/uL (4.8-10.8)
[2016-09-03 11:41] LABS: POTASSIUM 4.8 mmol/L (3.6-5.2)
[2016-09-03 11:43] LABS: ALB/GLOB RATIO 1.1 (1.0-2.1); BILIRUBIN,TOTAL 0.6 mg/dL (0.2-1.3); TOTAL PROTEIN 6.8 g/dL (6.3-8.3)
[2016-09-03 11:44] LABS: CALCIUM 8.3 mg/dl (8.6-10.4)
[2016-09-03 12:20] LABS: ABG ALLEN TEST A; ARTERIAL BLOOD HGB O2 SAT 94.1 % (95.0-98.0); CARBOXYHEMOGLOBIN 1.2 % (0.5-1.5); DRAW SITE RRA; METHEMOGLOBIN 0.8 % (0.0-3.0)
[2016-09-03 12:33] LABS: NEUTROPHIL 90 % (50-75); REACTIVE LYMPHOCYTES 1 % (0-0); TOTAL CELLS COUNTED 100
[2016-09-03 12:34] LABS: LARGE PLATELETS PRESENT
[2016-09-03] MEDS: Moxifloxacin IV 400mg/250ml NS 250 ML IVPB SCH (14:08)
[2016-09-03 16:00] VITALS: RESP 20
--- NOTE | 2016-09-03 18:16 | CP.PCM.PN ---
Subjective - Date & Time of Evaluation Date of Evaluation: 09/03/16 Time of Evaluation: 10:00 - Subjective Subjective: clinically same Objective - Vital Signs/Intake and Output Vital Signs (last 24 hours): Temp Pulse Resp BP Pulse Ox 97.4 F L 77 20 113/76 98 09/03/16 15:56 09/03/16 15:56 09/03/16 15:56 09/03/16 15:56 09/03/16 15:56 - Medications Medications: Current Medications Albuterol/Ipratropium (Duoneb 3 Mg/0.5 Mg (3 Ml) Ud) 3 ml INH RQ6 [facility] Last Admin: 09/03/16 14:56 Dose: 3 ml Aspirin (Aspirin Chewable) 81 mg PO DAILY [facility] Last Admin: 09/03/16 10:38 Dose: 81 mg Enoxaparin Sodium (Lovenox) 40 mg SC DAILY [facility] Last Admin: 09/03/16 10:38 Dose: 40 mg Furosemide (Lasix) 40 mg PO DAILY [facility] Last Admin: 09/03/16 10:38 Dose: 40 mg Moxifloxacin HCl (Avelox Iv 400mg/250ml Ns) 250 mls @ 167 mls/hr IVPB Q24H [facility] Stop: 09/09/16 14:01 Last Admin: 09/03/16 14:08 Dose: 167 mls/hr Losartan Potassium (Cozaar) 50 mg PO Q12H [facility] Last Admin: 09/03/16 10:38 Dose: 50 mg Methylprednisolone (Solu-Medrol) 40 mg IVP Q12 [facility] Stop: 09/04/16 16:01 Metoprolol Tartrate (Lopressor) 50 mg PO Q12 [facility] Last Admin: 09/03/16 10:38 Dose: 50 mg Montelukast Sodium (Singulair) 10 mg PO HS [facility] Last Admin: 09/02/16 22:12 Dose: 10 mg Multivitamins/Minerals (Therapeutic-M Tab) 1 tab PO DAILY [facility] Last Admin: 09/03/16 10:38 Dose: 1 tab Pantoprazole Sodium (Protonix Ec Tab) 40 mg PO DAILY [facility] Last Admin: 09/03/16 10:38 Dose: 40 mg Rosuvastatin Calcium (Crestor) 10 mg PO HS [facility] Last Admin: 09/02/16 22:12 Dose: 10 mg Fluticasone/Salmeterol (Advair Diskus 250/50) 1 puff INH RQ12 [facility] Last Admin: 09/03/16 08:30 Dose: 1 puff Tiotropium [place] (Spiriva) 18 mcg INH RQ24 [facility] Last Admin: 09/03/16 08:31 Dose: 18 mcg - Labs Labs: 09/03/16 11:17 09/03/16 11:17 Assessment and Plan (1) CHF (congestive heart failure), NYHA class II Status: Acute (2) COPD (chronic obstructive pulmonary disease) Status: Acute (3) COPD with exacerbation Status: Acute (4) Dyspnea Status: Acute (5) Hypertension Status: Acute (6) Respiratory distress Status: Acute - Assessment and Plan (Free Text) Plan: on Bipap overnight feels better Dr Rock Conrad laurie Avelox nebulizers
[2016-09-03] MEDS ORDERED: MethylPREDNISolone 40 mg Vial IVP SCH (22:00)
[2016-09-04] MEDS: Albuterol-Ipratrop 3 mg / 0.5 (3 ml) UD INH SCH ×3 (02:21→20:01)
[2016-09-04 07:33] LABS: BASO % 0.1 % (0.0-2.0); HEMATOCRIT 49.3 % (35.0-51.0); LYMPH # 0.5 K/uL (1.0-4.3); LYMPH % 4.2 % (20.0-40.0); MEAN CELL VOLUME 95.9 fL (80.0-94.0); MEAN CORPUSCULAR HEMOGLOBIN 30.6 pg (27.0-31.0); MEAN PLATELET VOLUME 11.5 fL (7.2-11.7); PLATELET COUNT 143 K/uL (130-400); RED CELL DISTRIBUTION WIDTH 14.1 % (11.5-14.5); WHITE BLOOD COUNT 12.9 K/uL (4.8-10.8)
[2016-09-04 07:46] LABS: POTASSIUM 4.3 mmol/L (3.6-5.2)
[2016-09-04 07:48] LABS: ALB/GLOB RATIO 1.1 (1.0-2.1); BILIRUBIN,TOTAL 0.3 mg/dL (0.2-1.3); TOTAL PROTEIN 6.7 g/dL (6.3-8.3)
[2016-09-04 07:49] LABS: CALCIUM 8.4 mg/dl (8.6-10.4)
[2016-09-04 09:03] LABS: NEUTROPHIL 86 % (50-75); PLATELET CLUMPS PRESENT; TOTAL CELLS COUNTED 100
[2016-09-04] MEDS: Enoxaparin 40 mg Syringe SC SCH (09:53)
[2016-09-04] MEDS: Pantoprazole 40 mg EC Tab PO SCH (09:53)
[2016-09-04] MEDS: Multivitamin With Minerals Tab PO SCH (09:53)
[2016-09-04] MEDS: Tiotropium 18 mcg Cap For Inhalation INH SCH (10:28)
[2016-09-04] MEDS: Fluticasone-Salmeterol 250-50mcg Diskus INH SCH ×2 (10:28→20:01)
--- NOTE | 2016-09-04 12:28 | CP.PCM.PN ---
<aKrol Olivera - Last Filed: 09/04/16 13:55> Subjective - Date & Time of Evaluation Date of Evaluation: 09/04/16 Time of Evaluation: 09:15 - Subjective Subjective: Medicine Progress Note- Dr aTna Issa Service Patient seen and examined. Patient states that he feels improved today and that he is breathing well on nasal cannula. He denies chest pain, palpitations , abdominal pain, headache, and cough. Patient is independent and lives in a home alone. He does not use home oxygen. Objective - Vital Signs/Intake and Output Vital Signs (last 24 hours): Temp Pulse Resp BP Pulse Ox 98.1 F 81 20 135/90 95 09/03/16 23:50 09/04/16 08:00 09/03/16 23:50 09/04/16 11:56 09/03/16 23:50 Intake and Output: 09/04/16 09/04/16 06:59 18:59 Intake Total 300 Balance 300 - Medications Medications: Current Medications Albuterol/Ipratropium (Duoneb 3 Mg/0.5 Mg (3 Ml) Ud) 3 ml INH RQ6 [facility] Last Admin: 09/04/16 10:28 Dose: 3 ml Aspirin (Aspirin Chewable) 81 mg PO DAILY [facility] Last Admin: 09/04/16 09:53 Dose: 81 mg Enoxaparin Sodium (Lovenox) 40 mg SC DAILY [facility] Last Admin: 09/04/16 09:53 Dose: 40 mg Furosemide (Lasix) 40 mg PO DAILY [facility] Last Admin: 09/04/16 11:56 Dose: 40 mg Moxifloxacin HCl (Avelox Iv 400mg/250ml Ns) 250 mls @ 167 mls/hr IVPB Q24H [facility] Stop: 09/09/16 14:01 Last Admin: 09/03/16 14:08 Dose: 167 mls/hr Losartan Potassium (Cozaar) 50 mg PO Q12H [facility] Last Admin: 09/04/16 09:53 Dose: 50 mg Metoprolol Tartrate (Lopressor) 50 mg PO Q12 [facility] Last Admin: 09/04/16 09:53 Dose: 50 mg Montelukast Sodium (Singulair) 10 mg PO HS [facility] Last Admin: 09/03/16 21:34 Dose: 10 mg Multivitamins/Minerals (Therapeutic-M Tab) 1 tab PO DAILY [facility] Last Admin: 09/04/16 09:53 Dose: 1 tab Pantoprazole Sodium (Protonix Ec Tab) 40 mg PO DAILY [facility] Last Admin: 09/04/16 09:53 Dose: 40 mg Prednisone (Prednisone Tab) 40 mg PO DAILY [facility] Stop: 09/07/16 10:01 Last Admin: 09/04/16 09:56 Dose: 40 mg Rosuvastatin Calcium (Crestor) 10 mg PO HS [facility] Last Admin: 09/03/16 21:34 Dose: 10 mg Fluticasone/Salmeterol (Advair Diskus 250/50) 1 puff INH RQ12 [facility] Last Admin: 09/04/16 10:28 Dose: 1 puff Tiotropium [place] (Spiriva) 18 mcg INH RQ24 [facility] Last Admin: 09/04/16 10:28 Dose: 18 mcg - Labs Labs: 09/04/16 07:18 09/04/16 07:18 - Constitutional Appears: Non-toxic, No Acute Distress - Head Exam Head Exam: ATRAUMATIC, NORMOCEPHALIC - Eye Exam Eye Exam: EOMI - ENT Exam ENT Exam: Mucous Membranes Moist, Normal Exam - Respiratory Exam Respiratory Exam: Decreased Breath Sounds, NORMAL BREATHING PATTERN. absent: Accessory Muscle Use, Rhonchi, Wheezes, Respiratory Distress - Cardiovascular Exam Cardiovascular Exam: REGULAR RHYTHM, +S1, +S2 - GI/Abdominal Exam GI & Abdominal Exam: Soft, Normal Bowel Sounds. absent: Firm, Tenderness - Extremities Exam Extremities Exam: Full ROM, Normal Inspection. absent: Calf Tenderness, Joint Swelling, Pedal Edema, Tenderness - Neurological Exam Neurological Exam: Alert, Awake, CN II-XII Intact, Oriented x3 - Psychiatric Exam Psychiatric exam: Normal Affect, Normal Mood - Skin Skin Exam: Dry, Intact, Normal Color, Warm Assessment and Plan - Assessment and Plan (Free Text) Assessment: COPD exacerbation Pulmonology consult - Dr. Wilkerson - help appreciated Duoneb 3ml INH RQ6 BiPAP 50% as needed Switched IV steroids to oral Prednisone 40mg daily x3 days with taper on discharge Singulair 10mg PO HS Avelox 400mg IVPB Q24H Advair 250/50mg 1 puff INH Q12H Spiriva 18mcg INH RQ24 Management of BiPAP per Dr. Wilkerson ABG pCO2 37, pO2 70, HCO3 24.7, ph 7.42 - pt will not need home oxygen. May discharge from pulm standpoint. Ventricular tachycardia Several runs of V tach overnight. Payroll Auditor made aware- will f/u recommendations. Currently rate controlled, NSR on tele monitor Cardiology consult - Dr. Waldrop - help appreciated Lopressor 50mg PO Q12 Pulmonary nodule 08/30/[address] - peribronchial thickening consistent with bronchitis. 8mm nodule in superior segment of RLL (please see full report) Repeat CT in 3 months Hypertension ASA 81mg PO daily Lasix 40mg PO daily Losartan 50mg PO Q12H Lopressor 50mg PO Q12H Crestor 10mg PO HS f/u ECHO Prophylaxis Protonix 40mg PO daily Lovenox 40mg SC daily All management and care per Dr Tana Issa. Will discuss with attending. <Antoni Issa S - Last Filed: 09/04/16 19:08> Objective - Vital Signs/Intake and Output Vital Signs (last 24 hours): Temp Pulse Resp BP Pulse Ox 97.6 F 78 20 114/79 97 09/04/16 16:00 09/04/16 16:49 09/04/16 16:00 09/04/16 16:00 09/04/16 16:00 - Medications Medications: Current Medications Albuterol/Ipratropium (Duoneb 3 Mg/0.5 Mg (3 Ml) Ud) 3 ml INH RQ6 [facility] Last Admin: 09/04/16 10:28 Dose: 3 ml Amiodarone HCl (Cordarone) 200 mg PO DAILY [facility] Aspirin (Aspirin Chewable) 81 mg PO DAILY [facility] Last Admin: 09/04/16 09:53 Dose: 81 mg Enoxaparin Sodium (Lovenox) 40 mg SC DAILY [facility] Last Admin: 09/04/16 09:53 Dose: 40 mg Furosemide (Lasix) 40 mg PO DAILY [facility] Last Admin: 09/04/16 11:56 Dose: 40 mg Moxifloxacin HCl (Avelox Iv 400mg/250ml Ns) 250 mls @ 167 mls/hr IVPB Q24H [facility] Stop: 09/09/16 14:01 Last Admin: 09/04/16 14:16 Dose: 167 mls/hr Losartan Potassium (Cozaar) 50 mg PO Q12H [facility] Last Admin: 04/04/17 09:53 Dose: 50 mg Metoprolol Tartrate (Lopressor) 50 mg PO Q12 [facility] Last Admin: 09/04/16 09:53 Dose: 50 mg Montelukast Sodium (Singulair) 10 mg PO HS [facility] Last Admin: 09/03/16 21:34 Dose: 10 mg Multivitamins/Minerals (Therapeutic-M Tab) 1 tab PO DAILY [facility] Last Admin: 09/04/16 09:53 Dose: 1 tab Pantoprazole Sodium (Protonix Ec Tab) 40 mg PO DAILY [facility] Last Admin: 09/04/16 09:53 Dose: 40 mg Prednisone (Prednisone Tab) 40 mg PO DAILY [facility] Stop: 09/07/16 10:01 Last Admin: 09/04/16 09:56 Dose: 40 mg Rosuvastatin Calcium (Crestor) 10 mg PO HS [facility] Last Admin: 09/03/16 21:34 Dose: 10 mg Fluticasone/Salmeterol (Advair Diskus 250/50) 1 puff INH RQ12 [facility] Last Admin: 09/04/16 10:28 Dose: 1 puff Tiotropium [place] (Spiriva) 18 mcg INH RQ24 [facility] Last Admin: 09/04/16 10:28 Dose: 18 mcg - Labs Labs: 09/04/16 07:18 09/04/16 07:18 Attending/Attestation - Attestation I have personally seen and examined this patient.: Yes I have fully participated in the care of the patient.: Yes I have reviewed all pertinent clinical information, including history, physical exam and plan: Yes Notes (Text): 09/04/16 19:07 case seen and discussed with staff and resident mx as agreed
--- NOTE | 2016-09-04 13:27 | CP.PCM.PN ---
Subjective - Date & Time of Evaluation Date of Evaluation: 09/04/16 Time of Evaluation: 11:00 - Subjective Subjective: Pt was seen and examined at bedside today, no acute distress, no acute events overnight. The pt was resting comfortably in bed and reports improvement in breathing today, reports that he has much less dyspnea on exertion and that he no longer feels congestion in his through and upper airway when he breathes. The pt currently denies chest pain, palpitations, headache, nausea, vomiting, fever, chills, pain on inspiration at this time. Objective - Vital Signs/Intake and Output Vital Signs (last 24 hours): Temp Pulse Resp BP Pulse Ox 98.1 F 81 20 135/90 95 09/03/16 23:50 09/04/16 08:00 09/03/16 23:50 09/04/16 11:56 09/03/16 23:50 Intake and Output: 09/04/16 09/04/16 06:59 18:59 Intake Total 300 Balance 300 - Medications Medications: Current Medications Albuterol/Ipratropium (Duoneb 3 Mg/0.5 Mg (3 Ml) Ud) 3 ml INH RQ6 [facility] Last Admin: 09/04/16 10:28 Dose: 3 ml Aspirin (Aspirin Chewable) 81 mg PO DAILY [facility] Last Admin: 09/04/16 09:53 Dose: 81 mg Enoxaparin Sodium (Lovenox) 40 mg SC DAILY [facility] Last Admin: 09/04/16 09:53 Dose: 40 mg Furosemide (Lasix) 40 mg PO DAILY [facility] Last Admin: 09/04/16 11:56 Dose: 40 mg Moxifloxacin HCl (Avelox Iv 400mg/250ml Ns) 250 mls @ 167 mls/hr IVPB Q24H [facility] Stop: 09/09/16 14:01 Last Admin: 09/03/16 14:08 Dose: 167 mls/hr Losartan Potassium (Cozaar) 50 mg PO Q12H [facility] Last Admin: 09/04/16 09:53 Dose: 50 mg Metoprolol Tartrate (Lopressor) 50 mg PO Q12 [facility] Last Admin: 09/04/16 09:53 Dose: 50 mg Montelukast Sodium (Singulair) 10 mg PO HS [facility] Last Admin: 09/03/16 21:34 Dose: 10 mg Multivitamins/Minerals (Therapeutic-M Tab) 1 tab PO DAILY [facility] Last Admin: 09/04/16 09:53 Dose: 1 tab Pantoprazole Sodium (Protonix Ec Tab) 40 mg PO DAILY [facility] Last Admin: 09/04/16 09:53 Dose: 40 mg Prednisone (Prednisone Tab) 40 mg PO DAILY [facility] Stop: 09/07/16 10:01 Last Admin: 09/04/16 09:56 Dose: 40 mg Rosuvastatin Calcium (Crestor) 10 mg PO HS [facility] Last Admin: 09/03/16 21:34 Dose: 10 mg Fluticasone/Salmeterol (Advair Diskus 250/50) 1 puff INH RQ12 [facility] Last Admin: 09/04/16 10:28 Dose: 1 puff Tiotropium [place] (Spiriva) 18 mcg INH RQ24 [facility] Last Admin: 09/04/16 10:28 Dose: 18 mcg - Labs Labs: 09/04/16 07:18 09/04/16 07:18 - Constitutional Appears: Well, Non-toxic, No Acute Distress - Head Exam Head Exam: ATRAUMATIC, NORMAL INSPECTION - Eye Exam Eye Exam: Normal appearance - Respiratory Exam Respiratory Exam: Clear to Ausculation Bilateral. absent: Rales, Rhonchi, Wheezes - Cardiovascular Exam Cardiovascular Exam: +S1, +S2 - Neurological Exam Neurological Exam: Alert, Awake, Oriented x3 - Skin Skin Exam: Dry, Normal Color, Warm Assessment and Plan (1) COPD with exacerbation Assessment & Plan: Pt is clear for discharge from pulm standpoint ABG pCO2 37, pO2 70, HCO3 24.7, ph 7.42 - pt will not need home oxygen continue steroid treatment continue recommendations by medicine and cardiology team Status: Acute
--- NOTE | 2016-09-04 13:51 | CP.PCM.PN ---
<Lee Drake - Last Filed: 09/04/16 16:31> Subjective - Date & Time of Evaluation Date of Evaluation: 09/04/16 Time of Evaluation: 13:30 - Subjective Subjective: Cardiology Note- Dr. Waldrop' service Patient was seen and examined at bedside. Patient reports no acute complaints. No events overnight per nursing. Patient had another short run of V tach around 9am, asymptomatic, on telemetry. Objective - Vital Signs/Intake and Output Vital Signs (last 24 hours): Temp Pulse Resp BP Pulse Ox 98.1 F 81 20 135/90 95 09/03/16 23:50 09/04/16 08:00 09/03/16 23:50 09/04/16 11:56 09/03/16 23:50 Intake and Output: 09/04/16 09/04/16 06:59 18:59 Intake Total 300 Balance 300 - Medications Medications: Current Medications Albuterol/Ipratropium (Duoneb 3 Mg/0.5 Mg (3 Ml) Ud) 3 ml INH RQ6 [facility] Last Admin: 09/04/16 10:28 Dose: 3 ml Aspirin (Aspirin Chewable) 81 mg PO DAILY [facility] Last Admin: 09/04/16 09:53 Dose: 81 mg Enoxaparin Sodium (Lovenox) 40 mg SC DAILY [facility] Last Admin: 09/04/16 09:53 Dose: 40 mg Furosemide (Lasix) 40 mg PO DAILY [facility] Last Admin: 09/04/16 11:56 Dose: 40 mg Moxifloxacin HCl (Avelox Iv 400mg/250ml Ns) 250 mls @ 167 mls/hr IVPB Q24H [facility] Stop: 09/09/16 14:01 Last Admin: 09/03/16 14:08 Dose: 167 mls/hr Losartan Potassium (Cozaar) 50 mg PO Q12H [facility] Last Admin: 09/04/16 09:53 Dose: 50 mg Metoprolol Tartrate (Lopressor) 50 mg PO Q12 [facility] Last Admin: 09/04/16 09:53 Dose: 50 mg Montelukast Sodium (Singulair) 10 mg PO HS [facility] Last Admin: 09/03/16 21:34 Dose: 10 mg Multivitamins/Minerals (Therapeutic-M Tab) 1 tab PO DAILY [facility] Last Admin: 09/04/16 09:53 Dose: 1 tab Pantoprazole Sodium (Protonix Ec Tab) 40 mg PO DAILY [facility] Last Admin: 09/04/16 09:53 Dose: 40 mg Prednisone (Prednisone Tab) 40 mg PO DAILY [facility] Stop: 09/07/16 10:01 Last Admin: 09/04/16 09:56 Dose: 40 mg Rosuvastatin Calcium (Crestor) 10 mg PO HS [facility] Last Admin: 09/03/16 21:34 Dose: 10 mg Fluticasone/Salmeterol (Advair Diskus 250/50) 1 puff INH RQ12 [facility] Last Admin: 09/04/16 10:28 Dose: 1 puff Tiotropium [place] (Spiriva) 18 mcg INH RQ24 [facility] Last Admin: 09/04/16 10:28 Dose: 18 mcg - Labs Labs: 09/04/16 07:18 09/04/16 07:18 - Constitutional Appears: Non-toxic, No Acute Distress - Head Exam Head Exam: ATRAUMATIC, NORMAL INSPECTION, NORMOCEPHALIC - Eye Exam Pupil Exam: NORMAL ACCOMODATION, PERRL - ENT Exam ENT Exam: Mucous Membranes Moist - Respiratory Exam Respiratory Exam: Clear to Ausculation Bilateral, NORMAL BREATHING PATTERN. absent: Prolonged Expiratory Phase, Rales, Rhonchi, Wheezes - Cardiovascular Exam Cardiovascular Exam: REGULAR RHYTHM, +S1, +S2 - GI/Abdominal Exam GI & Abdominal Exam: Soft, Normal Bowel Sounds. absent: Tenderness, Diminished Bowel Sounds - Extremities Exam Extremities Exam: Normal Capillary Refill, Normal Inspection - Neurological Exam Neurological Exam: Alert, Awake, Oriented x3 - Psychiatric Exam Psychiatric exam: Normal Affect, Normal Mood - Skin Skin Exam: Dry, Intact, Normal Color, Warm Assessment and Plan - Assessment and Plan (Free Text) Assessment: Ventricular Tachycardia At least 20 run of V tach noted on tele on 09/03/16 @ 7:59am 09/04/16- had 6 beat run of V tach around 9am, followed by another 3 beat of V tach seconds later Continue Lopressor to 50mg PO Q12 Discussed patient with pulmonology. Will start on amiodarone 200mg PO Daily, starting today. Echo done- pending read We will continue to follow. Case and plan discussed with Dr. Waldrop. <Emma Waldrop - Last Filed: 10/08/16 06:00> Objective - Vital Signs/Intake and Output Vital Signs (last 24 hours): Temp Pulse Resp BP Pulse Ox 97.6 F 76 20 142/94 H 97 09/05/16 07:20 09/05/16 08:00 09/05/16 07:20 09/05/16 10:35 09/05/16 07:20 - Labs Labs: 09/05/16 07:26 09/05/16 07:26 Attending/Attestation - Attestation I have personally seen and examined this patient.: Yes I have fully participated in the care of the patient.: Yes I have reviewed all pertinent clinical information, including history, physical exam and plan: Yes Notes (Text): 10/08/16 05:59 ICD stable NSVT on monitor start amiodorone 200QD
[2016-09-04] MEDS: Moxifloxacin IV 400mg/250ml NS 250 ML IVPB SCH (14:16)
[2016-09-04 16:46] VITALS: O2SAT 97
--- NOTE | 2016-09-04 19:18 | CP.PCM.PN ---
Subjective - Date & Time of Evaluation Date of Evaluation: 09/04/16 Time of Evaluation: 09:00 - Subjective Subjective: case maira dn dsicuse dit staff Objective - Vital Signs/Intake and Output Vital Signs (last 24 hours): Temp Pulse Resp BP Pulse Ox 97.6 F 78 20 114/79 97 09/04/16 16:00 09/04/16 16:49 09/04/16 16:00 09/04/16 16:00 09/04/16 16:00 - Medications Medications: Current Medications Albuterol/Ipratropium (Duoneb 3 Mg/0.5 Mg (3 Ml) Ud) 3 ml INH RQ6 [facility] Last Admin: 09/04/16 10:28 Dose: 3 ml Amiodarone HCl (Cordarone) 200 mg PO DAILY [facility] Aspirin (Aspirin Chewable) 81 mg PO DAILY [facility] Last Admin: 09/04/16 09:53 Dose: 81 mg Enoxaparin Sodium (Lovenox) 40 mg SC DAILY [facility] Last Admin: 09/04/16 09:53 Dose: 40 mg Furosemide (Lasix) 40 mg PO DAILY [facility] Last Admin: 09/04/16 11:56 Dose: 40 mg Moxifloxacin HCl (Avelox Iv 400mg/250ml Ns) 250 mls @ 167 mls/hr IVPB Q24H [facility] Stop: 09/09/16 14:01 Last Admin: 09/04/16 14:16 Dose: 167 mls/hr Losartan Potassium (Cozaar) 50 mg PO Q12H [facility] Last Admin: 09/04/16 09:53 Dose: 50 mg Metoprolol Tartrate (Lopressor) 50 mg PO Q12 [facility] Last Admin: 09/04/16 09:53 Dose: 50 mg Montelukast Sodium (Singulair) 10 mg PO HS [facility] Last Admin: 09/03/16 21:34 Dose: 10 mg Multivitamins/Minerals (Therapeutic-M Tab) 1 tab PO DAILY [facility] Last Admin: 09/04/16 09:53 Dose: 1 tab Pantoprazole Sodium (Protonix Ec Tab) 40 mg PO DAILY [facility] Last Admin: 09/04/16 09:53 Dose: 40 mg Prednisone (Prednisone Tab) 40 mg PO DAILY [facility] Stop: 09/07/16 10:01 Last Admin: 09/04/16 09:56 Dose: 40 mg Rosuvastatin Calcium (Crestor) 10 mg PO HS [facility] Last Admin: 09/03/16 21:34 Dose: 10 mg Fluticasone/Salmeterol (Advair Diskus 250/50) 1 puff INH RQ12 [facility] Last Admin: 09/04/16 10:28 Dose: 1 puff Tiotropium [place] (Spiriva) 18 mcg INH RQ24 [facility] Last Admin: 09/04/16 10:28 Dose: 18 mcg - Labs Labs: 09/04/16 07:18 09/04/16 07:18 - Constitutional Appears: Well - Head Exam Head Exam: ATRAUMATIC, NORMAL INSPECTION, NORMOCEPHALIC - Eye Exam Eye Exam: EOMI, Normal appearance, PERRL Pupil Exam: NORMAL ACCOMODATION, PERRL - ENT Exam ENT Exam: Mucous Membranes Moist, Normal Exam - Neck Exam Neck Exam: Full ROM, Normal Inspection. absent: Lymphadenopathy - Respiratory Exam Respiratory Exam: Decreased Breath Sounds - Cardiovascular Exam Cardiovascular Exam: REGULAR RHYTHM, +S1, +S2 - GI/Abdominal Exam GI & Abdominal Exam: Soft, Diminished Bowel Sounds - Rectal Exam Rectal Exam: Deferred Assessment and Plan (1) CHF (congestive heart failure), NYHA class II Status: Acute (2) COPD (chronic obstructive pulmonary disease) Status: Acute (3) COPD with exacerbation Status: Acute (4) Dyspnea Status: Acute (5) Hypertension Status: Acute (6) Respiratory distress Status: Acute - Assessment and Plan (Free Text) Plan: spoke to son on [id number] area code [place] same pts son and pt made awre about diff issues reated tocopd also 8mm nodule which coul dbe cancer but needs to do wkr up laurie solumedrol may need jovany cont same
[2016-09-05] MEDS: Albuterol-Ipratrop 3 mg / 0.5 (3 ml) UD INH SCH ×2 (01:59→07:45)
[2016-09-05 07:39] LABS: BASO % 0.1 % (0.0-2.0); NRBC % 0.1 % (0.0-2.0)
[2016-09-05 07:43] LABS: EOS % 0.2 % (0.0-4.0); HEMATOCRIT 47.1 % (35.0-51.0); LYMPH # 1.3 K/uL (1.0-4.3); LYMPH % 9.7 % (20.0-40.0); MEAN CELL VOLUME 95.5 fL (80.0-94.0); MEAN CORPUSCULAR HEMOGLOBIN 30.7 pg (27.0-31.0); MEAN CORPUSCULAR HGB CONC 32.1 g/dL (33.0-37.0); MEAN PLATELET VOLUME 11.6 fL (7.2-11.7); MONO # 1.6 K/uL (0.0-0.8); MONO % 12.7 % (0.0-10.0); PLATELET COUNT 127 K/uL (130-400); RED CELL DISTRIBUTION WIDTH 14.1 % (11.5-14.5)
[2016-09-05] MEDS: Fluticasone-Salmeterol 250-50mcg Diskus INH SCH (07:45)
[2016-09-05 07:50] LABS: POTASSIUM 3.9 mmol/L (3.6-5.2)
[2016-09-05 07:52] LABS: ALB/GLOB RATIO 1.1 (1.0-2.1); BILIRUBIN,TOTAL 0.2 mg/dL (0.2-1.3); TOTAL PROTEIN 5.4 g/dL (6.3-8.3)
[2016-09-05 07:53] LABS: CALCIUM 7.6 mg/dl (8.6-10.4)
--- NOTE | 2016-09-05 07:54 | CP.PCM.PN ---
<Lee Drake - Last Filed: 09/05/16 09:01> Subjective - Date & Time of Evaluation Date of Evaluation: 09/05/16 Time of Evaluation: 09:00 - Subjective Subjective: Cardiology Note- Dr. Waldrop' service Patient was seen and examined at bedside. Patient reports no acute complaints at this time. Breathing is back to baseline, able to ambulate. No events overnight per nursing. Telemetry was discontinued last night, no additional data is available. Objective - Vital Signs/Intake and Output Vital Signs (last 24 hours): Temp Pulse Resp BP Pulse Ox 98.1 F 75 20 135/82 97 09/04/16 23:32 09/04/16 23:32 09/04/16 23:32 09/04/16 23:32 09/04/16 23:32 Intake and Output: 09/05/16 09/05/16 06:59 18:59 Intake Total 200 Balance 200 - Medications Medications: Current Medications Albuterol/Ipratropium (Duoneb 3 Mg/0.5 Mg (3 Ml) Ud) 3 ml INH RQ6 [facility] Last Admin: 09/05/16 07:45 Dose: 3 ml Amiodarone HCl (Cordarone) 200 mg PO DAILY [facility] Aspirin (Aspirin Chewable) 81 mg PO DAILY [facility] Last Admin: 09/04/16 09:53 Dose: 81 mg Enoxaparin Sodium (Lovenox) 40 mg SC DAILY [facility] Last Admin: 09/04/16 09:53 Dose: 40 mg Furosemide (Lasix) 40 mg PO DAILY [facility] Last Admin: 09/04/16 11:56 Dose: 40 mg Moxifloxacin HCl (Avelox Iv 400mg/250ml Ns) 250 mls @ 167 mls/hr IVPB Q24H [facility] Stop: 09/09/16 14:01 Last Admin: 09/04/16 14:16 Dose: 167 mls/hr Losartan Potassium (Cozaar) 50 mg PO Q12H [facility] Last Admin: 09/04/16 21:40 Dose: 50 mg Metoprolol Tartrate (Lopressor) 50 mg PO Q12 [facility] Last Admin: 09/04/16 21:40 Dose: 50 mg Montelukast Sodium (Singulair) 10 mg PO HS [facility] Last Admin: 09/04/16 21:40 Dose: 10 mg Multivitamins/Minerals (Therapeutic-M Tab) 1 tab PO DAILY [facility] Last Admin: 09/04/16 09:53 Dose: 1 tab Pantoprazole Sodium (Protonix Ec Tab) 40 mg PO DAILY [facility] Last Admin: 09/04/16 09:53 Dose: 40 mg Prednisone (Prednisone Tab) 40 mg PO DAILY [facility] Stop: 09/07/16 10:01 Last Admin: 09/04/16 09:56 Dose: 40 mg Rosuvastatin Calcium (Crestor) 10 mg PO HS [facility] Last Admin: 09/04/16 21:40 Dose: 10 mg Fluticasone/Salmeterol (Advair Diskus 250/50) 1 puff INH RQ12 [facility] Last Admin: 09/05/16 07:45 Dose: 1 puff Tiotropium [place] (Spiriva) 18 mcg INH RQ24 [facility] Last Admin: 09/04/16 10:28 Dose: 18 mcg - Labs Labs: 09/05/16 07:26 09/05/16 07:26 - Constitutional Appears: Non-toxic, No Acute Distress - Head Exam Head Exam: ATRAUMATIC, NORMAL INSPECTION, NORMOCEPHALIC - Eye Exam Pupil Exam: NORMAL ACCOMODATION, PERRL - ENT Exam ENT Exam: Mucous Membranes Moist - Respiratory Exam Respiratory Exam: Clear to Ausculation Bilateral, NORMAL BREATHING PATTERN. absent: Prolonged Expiratory Phase, Rales, Rhonchi, Wheezes - Cardiovascular Exam Cardiovascular Exam: REGULAR RHYTHM, +S1, +S2 - GI/Abdominal Exam GI & Abdominal Exam: Soft, Normal Bowel Sounds. absent: Tenderness, Diminished Bowel Sounds, Hypoactive Bowel Sounds - Neurological Exam Neurological Exam: Alert, Awake, Oriented x3 - Psychiatric Exam Psychiatric exam: Normal Affect, Normal Mood - Skin Skin Exam: Dry, Intact, Normal Color, Warm Assessment and Plan - Assessment and Plan (Free Text) Assessment: Ventricular Tachycardia At least 20 run of V tach noted on tele on 09/03/16 @ 7:59am 09/04/16- had 6 beat run of V tach around 9am, followed by another 3 beat of V tach seconds later Per nursing, telemetry was discontinued on patient sometime yesterday. Continue Lopressor to 50mg PO Q12 Continue Amiodarone 200mg PO Daily Echo done- pending read Per Dr. Waldrop, patient is okay to go home. He will need to followup with Dr. Waldrop outpatient. Case and plan discussed with Dr. Waldrop. <Emma Waldrop - Last Filed: 10/08/16 05:59> Objective - Vital Signs/Intake and Output Vital Signs (last 24 hours): Temp Pulse Resp BP Pulse Ox 97.6 F 76 20 142/94 H 97 09/05/16 07:20 09/05/16 08:00 09/05/16 07:20 09/05/16 10:35 09/05/16 07:20 - Labs Labs: 09/05/16 07:26 09/05/16 07:26 Attending/Attestation - Attestation I have personally seen and examined this patient.: Yes I have fully participated in the care of the patient.: Yes I have reviewed all pertinent clinical information, including history, physical exam and plan: Yes Notes (Text): 10/08/16 05:58 HR stable bp stable d/c telemetry
[2016-09-05 08:03] VITALS: BP 142/94; PULSE 76; TEMP 97.6
--- NOTE | 2016-09-05 08:08 | CARD ---
APPROVED REPORT EXAM: Two-dimensional and M-mode echocardiogram with Doppler and color Doppler. Other Information Quality : GoodRhythm : INDICATION Congestive Heart Failure COPD V TACH RISK FACTORS Hypertension M-Mode DIMENSIONS RVDd0.79 (2.1-3.2cm)Left Atrium (MM)5.05 (2.5-4.0cm) IVSd0.67 (0.7-1.1cm)Aortic Root3.47 (2.2-3.7cm) LVDd6.50 (4.0-5.6cm)Aortic Cusp Exc.2.43 (1.5-2.0cm) PWd0.76 (0.7-1.1cm)FS (%) 17 % LVDs5.38 (2.0-3.8cm)LVEF (%)35 (>50%) Aortic Valve AI P 1/2 [id number] Mitral Valve MV E Ukkplbha00.2cm/sMV A Uioslxki46.4cm/sE/A ratio2.0 TDI E/Lateral E'0.0E/Medial E'0.0 Tricuspid Valve TR Peak [id number]/sTR Peak [id number] LEFT VENTRICLE The Left Ventricle is moderately dilated. There is normal left ventricular wall thickness. Left ventricle systolic function is severely impaired. The Ejection Fraction is 25-30%. There is global hypokinesis of the left ventricle. The left ventricular diastolic function is normal. No left ventricle thrombus noted on this study. RIGHT VENTRICLE The right ventricle is normal size. The right ventricular systolic function is normal. There is a catheter in the right ventricle. ATRIA The left atrium is moderately dilated. The right atrium size is normal. AORTIC VALVE The aortic valve is normal in structure. There is mild aortic regurgitation. There is no aortic valvular stenosis. MITRAL VALVE The mitral valve is normal in structure. There is no evidence of mitral valve prolapse. There is no mitral valve stenosis. Mitral regurgitation is moderate. TRICUSPID VALVE The tricuspid valve is normal in structure. There is mild to moderate tricuspid regurgitation. Right ventricular systolic pressure is estimated at less than 30 mmHg. There is no pulmonary hypertension. There is no tricuspid valve prolapse or vegetation. There is no tricuspid valve stenosis. PULMONIC VALVE The pulmonic valve is not well visualized. There is mildmild to moderate pulmonic valvular regurgitation. GREAT VESSELS The aortic root is normal in size. The IVC is normal in size and collapses >50% with inspiration. PERICARDIAL EFFUSION There is no pericardial effusion. There is no pleural effusion. <Conclusion> The Left Ventricle is moderately dilated. Left ventricle systolic function is severely impaired. The Ejection Fraction is 25-30%. The left ventricular diastolic function is normal. The right ventricle is normal size. The right ventricular systolic function is normal. The left atrium is moderately dilated. The right atrium size is normal. There is mild aortic regurgitation. Mitral regurgitation is moderate. There is mild to moderate tricuspid regurgitation.
[2016-09-05 08:47] LABS: EOSINOPHIL 1 % (0-4); METAMYELOCYTE 2 % (0-0); NEUTROPHIL 72 % (50-75); REACTIVE LYMPHOCYTES 1 % (0-0); TOTAL CELLS COUNTED 100
[2016-09-05 08:48] LABS: GIANT PLATELETS PRESENT; LARGE PLATELETS PRESENT
[2016-09-05] MEDS: Pantoprazole 40 mg EC Tab PO SCH (10:35)
[2016-09-05] MEDS: Multivitamin With Minerals Tab PO SCH (10:35)
[2016-09-05] MEDS: Enoxaparin 40 mg Syringe SC SCH (10:36)
--- NOTE | 2016-09-05 10:36 | CP.PCM.PN ---
Subjective - Date & Time of Evaluation Date of Evaluation: 09/05/16 Time of Evaluation: 10:36 - Subjective Subjective: Medicine Progress Note- Dr Tana Issa Service Patient seen and examined. Patient has no acute complaints today. He is eager to go home and wishes to follow with Dr Tana Issa as his PMD. The patient states that his breathing has improved and he is no longer coughing. Patient was cleared by form setter and radiation technician for discharge with instructions. Denies fever, chills, nausea, vomiting, diarrhea, abdominal pain, chest pain, shortness of breath, and palpitations. Objective - Vital Signs/Intake and Output Vital Signs (last 24 hours): Temp Pulse Resp BP Pulse Ox 97.6 F 76 20 142/94 H 97 09/05/16 07:20 09/05/16 07:20 09/05/16 07:20 09/05/16 07:20 09/05/16 07:20 Intake and Output: 09/05/16 09/05/16 06:59 18:59 Intake Total 200 Balance 200 - Medications Medications: Current Medications Albuterol/Ipratropium (Duoneb 3 Mg/0.5 Mg (3 Ml) Ud) 3 ml INH RQ6 [facility] Last Admin: 09/05/16 07:45 Dose: 3 ml Amiodarone HCl (Cordarone) 200 mg PO DAILY [facility] Aspirin (Aspirin Chewable) 81 mg PO DAILY [facility] Last Admin: 09/04/16 09:53 Dose: 81 mg Enoxaparin Sodium (Lovenox) 40 mg SC DAILY [facility] Last Admin: 09/04/16 09:53 Dose: 40 mg Furosemide (Lasix) 40 mg PO DAILY [facility] Last Admin: 09/04/16 11:56 Dose: 40 mg Moxifloxacin HCl (Avelox Iv 400mg/250ml Ns) 250 mls @ 167 mls/hr IVPB Q24H [facility] Stop: 09/09/16 14:01 Last Admin: 09/04/16 14:16 Dose: 167 mls/hr Losartan Potassium (Cozaar) 50 mg PO Q12H [facility] Last Admin: 09/04/16 21:40 Dose: 50 mg Metoprolol Tartrate (Lopressor) 50 mg PO Q12 [facility] Last Admin: 09/04/16 21:40 Dose: 50 mg Montelukast Sodium (Singulair) 10 mg PO HS [facility] Last Admin: 09/04/16 21:40 Dose: 10 mg Multivitamins/Minerals (Therapeutic-M Tab) 1 tab PO DAILY [facility] Last Admin: 09/04/16 09:53 Dose: 1 tab Pantoprazole Sodium (Protonix Ec Tab) 40 mg PO DAILY [facility] Last Admin: 09/04/16 09:53 Dose: 40 mg Prednisone (Prednisone Tab) 40 mg PO DAILY [facility] Stop: 09/07/16 10:01 Last Admin: 09/04/16 09:56 Dose: 40 mg Rosuvastatin Calcium (Crestor) 10 mg PO HS [facility] Last Admin: 09/04/16 21:40 Dose: 10 mg Fluticasone/Salmeterol (Advair Diskus 250/50) 1 puff INH RQ12 [facility] Last Admin: 09/05/16 07:45 Dose: 1 puff Tiotropium [place] (Spiriva) 18 mcg INH RQ24 [facility] Last Admin: 09/04/16 10:28 Dose: 18 mcg - Labs Labs: 09/05/16 07:26 09/05/16 07:26 - Additional Findings Additional findings: - Constitutional Appears: Non-toxic, No Acute Distress - Head Exam Head Exam: ATRAUMATIC, NORMOCEPHALIC - Eye Exam Eye Exam: EOMI - ENT Exam ENT Exam: Mucous Membranes Moist, Normal Exam - Respiratory Exam Respiratory Exam: Decreased Breath Sounds, NORMAL BREATHING PATTERN. absent: Accessory Muscle Use, Rhonchi, Wheezes, Respiratory Distress - Cardiovascular Exam Cardiovascular Exam: REGULAR RHYTHM, +S1, +S2 - GI/Abdominal Exam GI & Abdominal Exam: Soft, Normal Bowel Sounds. absent: Firm, Tenderness - Extremities Exam Extremities Exam: Full ROM, Normal Inspection. absent: Calf Tenderness, Joint Swelling, Pedal Edema, Tenderness - Neurological Exam Neurological Exam: Alert, Awake, CN II-XII Intact, Oriented x3 - Psychiatric Exam Psychiatric exam: Normal Affect, Normal Mood - Skin Skin Exam: Dry, Intact, Normal Color, Warm Assessment and Plan - Assessment and Plan (Free Text) Assessment: COPD exacerbation Pulmonology consult - Dr. Wilkerson - help appreciated Duoneb 3ml INH RQ6 BiPAP 50% as needed Switched IV steroids to oral Prednisone 40mg daily x3 days with taper on discharge Singulair 10mg PO HS Avelox 400mg IVPB Q24H Advair 250/50mg 1 puff INH Q12H Spiriva 18mcg INH RQ24 Management of BiPAP per Dr. Wilkerson ABG pCO2 37, pO2 70, HCO3 24.7, ph 7.42 - pt will not need home oxygen. May discharge from pulm standpoint. Ventricular tachycardia Currently rate controlled. Cardiology consult - Dr. Waldrop - help appreciated. Stable for discharge with outpt follow up. Lopressor 50mg PO Q12 Amiodarone 200mg PO daily Pulmonary nodule 08/30/[address] - peribronchial thickening consistent with bronchitis. 8mm nodule in superior segment of RLL (please see full report) Repeat CT in 1 month (script to be given by Dr Tana Issa in office) Hypertension ASA 81mg PO daily Lasix 40mg PO daily Losartan 50mg PO Q12H Lopressor 50mg PO Q12H Crestor 10mg PO HS Prophylaxis Protonix 40mg PO daily Lovenox 40mg SC daily All management and care per Dr Tana Issa. Discussed with attending.
[2016-09-05] MEDS: Moxifloxacin IV 400mg/250ml NS 250 ML IVPB SCH (14:15)
--- NOTE | 2016-09-05 17:28 | PCM.HF ---
Heart Failure Core Measure - Heart Failure Ejection Fraction: Less Than 40 % KORIN Inhibitor Prescribed: No Contraindication/Reason for not providing: on KORIN Beta-Angeline Prescribed: Metoprolol Succinate Angiotensin II Receptor Angeline Prescribed: Yes AnticoagulationTherapy for Atrial Fibrillation/Atrialflutter: No Contraindication/Reason for not providing: no hx of afib Aldosterone Antagonist Prescribed: No Contraindication/Reason for not providing: renal insufficiency/ risk for hyperkalemia / on loop diuretics Hydralazine Nitrate Prescribed: No Contraindication/Reason for not providing: on amidorone Implantable Cardioverter Defibrillator Therapy: Yes Cardiac Resynchronization Therapy Prescribed: No Contraindication/Reason for not providing: pt has AICD / NO NEED FOR COUNSELING - Follow up Will be discharged to: Home Follow Up Date (must be within 7 days from discharge): 09/10/16 Follow Up Time: 09:00
--- NOTE | 2016-09-06 13:33 | CARD ---
APPROVED REPORT EKG Measurement Heart [id number] MN 130P27 [id number] <Conclusion> Demand pacemaker, interpretation is based on intrinsic rhythm Undetermined rhythm Low voltage QRS Left anterior fascicular block Septal infarct, age undetermined T wave abnormality, consider inferolateral ischemia Abnormal ECG
== END 2016-09-05 15:35 | disposition home or self-care (01) | DRG 191 ==
LOC: C.ER 01:48 → C.9E 06:10 → C.5T 11:04
PROVIDERS: ADMIT Internal Medicine Nephrology; ATTEND Internal Medicine Nephrology
PROC: 5A09457 Assistance with Respiratory Ventilation, 24-96 Consecutive Hours, Continuous Positive Airway Pressure (ICD-10-PCS; principal; 2016-08-30)
DX: J44.1 Chronic obstructive pulmonary disease with (acute) exacerbation (principal); I47.2 Ventricular tachycardia; I10 Essential (primary) hypertension; E78.00 Pure hypercholesterolemia, unspecified; Z87.891 Personal history of nicotine dependence; N28.9 Disorder of kidney and ureter, unspecified; R91.1 Solitary pulmonary nodule

== ENCOUNTER 2016-12-29 10:37 | Inpatient (IN) | payer MEDICARE ==
[2016-12-29 10:38] VITALS: BMI 23.7
[2016-12-29] MEDS ORDERED: Albuterol-Ipratrop 3 mg / 0.5 (3 ml) UD IH SCH (11:00)
[2016-12-29 11:07] LABS: BASO # 0.1 K/uL (0.0-0.2); EOS # 1.1 K/uL (0.0-0.7); EOS % 11.3 % (0.0-4.0); LYMPH # 2.7 K/uL (1.0-4.3); LYMPH % 26.7 % (20.0-40.0); MEAN CELL VOLUME 96.1 fL (80.0-94.0); MEAN CORPUSCULAR HEMOGLOBIN 31.8 pg (27.0-31.0); MEAN CORPUSCULAR HGB CONC 33.1 g/dL (33.0-37.0); MEAN PLATELET VOLUME 10.7 fL (7.2-11.7); MONO # 0.9 K/uL (0.0-0.8); MONO % 9.1 % (0.0-10.0); NEUT # 5.2 K/uL (1.8-7.0); NEUT % 51.9 % (50.0-75.0); RBC 4.73 Mil/uL (4.40-5.90); RED CELL DISTRIBUTION WIDTH 13.7 % (11.5-14.5)
[2016-12-29] MEDS ORDERED: Albuterol-Ipratrop 3 mg / 0.5 (3 ml) UD ONE (11:10)
[2016-12-29 11:16] LABS: ALBUMIN 3.5 g/dL (3.5-5.0)
[2016-12-29 11:19] LABS: CALCIUM 8.5 mg/dl (8.6-10.4)
--- NOTE | 2016-12-29 11:23 | C.PDOC ---
History Of Present Illness <Reena Rondon - Last Filed: 12/29/16 13:46> <ShayyHardikKathia A - Last Filed: 12/29/16 16:36> 76 y/o male, with PMHx includes COPD with pacemaker and cardiac defibrillator, presents to the ED for evaluation of shortness of breath which began this morning. Patient states he was experiencing difficulties with getting any air into his lungs and chest tightness. Patient denies fever, chills, chest pain, cough, extremity numbness/weakness. PMD: Dr. Ilene Izquierdo (Kathia Lucas) <Reena Rondon - Last Filed: 12/29/16 13:46> History Per: Patient History/Exam Limitations: no limitations Onset/Duration Of Symptoms: Hrs Current Symptoms Are (Timing): Still Present Quality: denies: "Pain" Associated Symptoms: denies: Fever, Chills, Chest Pain, Bloody Cough, Productive Cough Additional History Per: Patient <Kathia Lucas Abdon - Last Filed: 12/29/16 16:36> Time Seen by Provider: 12/29/16 10:39 Chief Complaint (Nursing): Shortness Of Breath Past Medical History Reviewed: Historical Data, Nursing Documentation, Vital Signs - Medical History PMH: COPD, Emphysema, HTN, Hypercholesterolemia Surgical History: Pacemaker (DEFIBRILLATOR) Family History: States: Unknown Family Hx - Social History Hx Alcohol Use: No Hx Substance Use: No - Immunization History Hx Tetanus Toxoid Vaccination: Yes Hx Influenza Vaccination: Yes Hx Pneumococcal Vaccination: Yes <Kathia Lucas - Last Filed: 12/29/16 16:36> Vital Signs: Last Vital Signs Temp 99.1 F 12/29/16 15:51 Pulse 104 H 12/29/16 15:51 Resp 20 12/29/16 15:51 BP 127/94 H 12/29/16 15:51 Pulse Ox 100 12/29/16 15:53 - [facility] Procedures ASSISTANCE WITH RESPIRATORY VENTILATION, 24-96 HRS, CPAP (08/30/16) Review Of Systems Constitutional: Negative for: Fever, Chills Cardiovascular: Negative for: Chest Pain Respiratory: Positive for: Shortness of Breath. Negative for: Cough Neurological: Negative for: Weakness, Numbness <Kathia Lucas - Last Filed: 12/29/16 16:36> Physical Exam - Physical Exam Appears: Non-toxic, No Acute Distress Skin: Normal Color, Warm, Dry Head: Atraumatic Eye(s): bilateral: Normal Inspection Nose: Normal Oral Mucosa: Moist Lips: Normal Appearing Neck: Normal, Supple Chest: Symmetrical, No Deformity, No Tenderness Cardiovascular: Rhythm Regular, No Murmur Respiratory: Normal Breath Sounds, No Rales, No Rhonchi, Wheezing (b/l lung fox ) Back: Normal Inspection Extremity: Normal ROM, Capillary Refill (less than 2 seconds ), No Swelling Neurological/Psych: Oriented x3, Normal Speech, Normal Cognition Gait: Steady <Kathia Lucas - Last Filed: 12/29/16 16:36> ED Course And Treatment - Laboratory Results Result Diagrams: 12/29/16 11:02 12/29/16 11:02 <Reena Rondon - Last Filed: 12/29/16 13:46> - Laboratory Results Result Diagrams: 12/29/16 11:02 12/29/16 11:02 Lab Interpretation: No Acute Changes ECG: Interpreted By Me ECG Rhythm: V Paced ECG Interpretation: No Acute Changes Rate From EC O2 Sat by Pulse Oximetry: 100 (on RA) - Radiology CXR: Interpreted by Me CXR Interpretation: Yes: No Acute Disease - Other Rad CXR X-Ray: Interpreted by Me, Viewed By Me, Read By Radiologist Interpretation: Accession No. : [id number]. Patient Name / ID : JUDIE DORYS / [id number]. Exam Date : 12/29/2016 11:01:56 ( Approved ). Study Comment : Sex / Age : M / 76Y. Creator : SHREYA VALDOVINOS MD. Dictator : SHREYA VALDOVINOS MD. Human Resource Statistician : Steward/Stewardess Second Class : SHREYA VALDOVINOS MD. Approver2 : Report Date : 12:06:07. My Comment : . PROCEDURE: CHEST RADIOGRAPH, 1 VIEW. HISTORY: Shortness of breath. COMPARISON: 08/30/2016. FINDINGS: LUNGS: There is mild pulmonary venous congestion. No focal consolidation. PLEURA: No pneumothorax or pleural fluid seen. CARDIOVASCULAR: There is mild cardiomegaly and prominent central vasculature. There is stable position of a left-sided dual lead transvenous permanent pacing device. Atherosclerotic aortic arch calcifications are present. OSSEOUS STRUCTURES: No significant abnormalities. VISUALIZED UPPER ABDOMEN: Normal. OTHER FINDINGS: None. IMPRESSION: Interval development of pulmonary venous congestion. No lobar pneumonia. Progress Note: Labs, EKG, CXR ordered and reviewed. Patient received Duoneb IH and solu-medrol IV. Case discussed with Dr. Ilene izquierdo, who accepts patient for admission. Patient coughing and increase SOB-treated with tessalon 200 mg PO and vapotherm. On re-evaluation breathing better lungs few wheeze Reassessment Condition: Improved - Physician Consult Information Physician Contacted: Antoni Izquierdo Outcome Of Conversation: admit <Kathia Lucas - Last Filed: 12/29/16 16:36> Supervising Attending Note - Supervising Attending Note The Documented history was done by the: Physician Geriatric Nurse Practitioner The documented physical exam was done by the: Physician Geriatric Nurse Practitioner The documented procedures were done by the: Physician Geriatric Nurse Practitioner - Attestation: I have personally seen and examined this patient.: Yes I have fully participated in the care of the patient.: Yes I have reviewed all pertinent clinical information, including history, physical exam and plan: Yes <Reena Rondon - Last Filed: 12/29/16 13:46> <Kathia Lucas - Last Filed: 12/29/16 16:36> - Notes: Notes:: INCR SOB. PS "FELT TICKLE IN BACK OF THROAT" TRIGGERED COUGHING FIT. FEELS BETTER W SALINE NEB. SINUS TACH, TACHYPNEA. +RETRACTIONS, SPEAKING 4-5 WORD SENTENCES. SP MULT NEBS, SOLUMEDROL. WILL START VAPOTHERM (Reena Rondon) Medical Decision Making <Reena Rondon - Last Filed: 12/29/16 13:46> <Kathia Lucas - Last Filed: 12/29/16 16:36> Medical Decision Making: tOn re-evaluation feeling better in no distress (Kathia Lucas) Disposition <Reena Rondon - Last Filed: 12/29/16 13:46> Discussed With : Antoni Izquierdo Doctor Will See Patient In The: Hospital - Disposition Disposition Time: 12:00 - POA Present On Arrival: None <Kathia Lucas - Last Filed: 12/29/16 16:36> - Disposition Disposition: HOSPITALIZED Condition: STABLE - Clinical Impression Clinical Impression: Dyspnea, COPD (chronic obstructive pulmonary disease), Chest pain <Reena Rondon - Last Filed: 12/29/16 13:46> - PA / UTILIZATION REVIEW NURSE / Resident Statement MD/DO has reviewed & agrees with the documentation as recorded. - Scribe Statement The provider has reviewed the documentation as recorded by the Scribe (Jewels Izquierdo) <Kathia Lucas Abdon - Last Filed: 12/29/16 16:36> - Scribe Statement All medical record entries made by the Scribe were at my direction and personally dictated by me. I have reviewed the chart and agree that the record accurately reflects my personal performance of the history, physical exam, medical decision making, and the department course for this patient. I have also personally directed, reviewed, and agree with the discharge instructions and disposition. (Kathia Lucas) Decision To Admit <Reena Rondon - Last Filed: 12/29/16 13:46> - Pt Status Changed To: Hospital Disposition Of: Inpatient - Admit Certification Admit to Inpatient:: After my assessment, the patient will require hospitalization for at least two midnights. This is because of the severity of symptoms shown, intensity of services needed, and/or the medical risk in this patient being treated as an outpatient. - InPatient: Physician Admission Certification: I certify that this patient requires 2 or more midnights of care for the following reason:: COPD exacerbation. Chest Pain - . Bed Request Type: Telemetry <Kathia Lucas - Last Filed: 12/29/16 16:36> - . Patient Diagnosis: Dyspnea, COPD (chronic obstructive pulmonary disease), Chest pain
[2016-12-29 11:30] LABS: TROPONIN I 0.013 ng/mL (0.00-0.120)
--- NOTE | 2016-12-29 12:07 | RAD ---
PROCEDURE: CHEST RADIOGRAPH, 1 VIEW HISTORY: Shortness of breath COMPARISON: 08/30/2016. FINDINGS: LUNGS: There is mild pulmonary venous congestion. No focal consolidation PLEURA: No pneumothorax or pleural fluid seen. CARDIOVASCULAR: There is mild cardiomegaly and prominent central vasculature. There is stable position of a left-sided dual lead transvenous permanent pacing device. Atherosclerotic aortic arch calcifications are present. OSSEOUS STRUCTURES: No significant abnormalities. VISUALIZED UPPER ABDOMEN: Normal. OTHER FINDINGS: None. IMPRESSION: Interval development of pulmonary venous congestion. No lobar pneumonia.
[2016-12-29] MEDS ORDERED: Albuterol-Ipratrop 3 mg / 0.5 (3 ml) UD INH PRN (17:01)
--- NOTE | 2016-12-29 17:01 | CP.PCM.HP ---
Past Patient History - Infectious Disease Hx of Infectious Diseases: None - Past Medical History & Family History Past Medical History?: Yes - Past Social History Smoking Status: Never Smoked - CARDIAC Hx Hypercholesterolemia: Yes Hx Hypertension: Yes Hx Pacemaker: Yes (DEFIBRILLATOR) - PULMONARY Hx Chronic Obstructive Pulmonary Disease (COPD): Yes Hx Emphysema: Yes - NEUROLOGICAL Hx Neurological Disorder: No - HEENT Hx HEENT Problems: No - RENAL Hx Chronic Kidney Disease: No - ENDOCRINE/METABOLIC Hx Endocrine Disorders: No - HEMATOLOGICAL/ONCOLOGICAL Hx Blood Disorders: No - INTEGUMENTARY Hx Dermatological Problems: No - MUSCULOSKELETAL/RHEUMATOLOGICAL Hx Musculoskeletal Disorders: No Hx Falls: No - GASTROINTESTINAL Hx Gastrointestinal Disorders: No - GENITOURINARY/GYNECOLOGICAL Hx Genitourinary Disorders: No - PSYCHIATRIC Hx Substance Use: No - SURGICAL HISTORY Other/Comment: PACEMAKER/DEFIBRILLATOR - ANESTHESIA Hx Anesthesia: Yes Hx Anesthesia Reactions: No Meds Allergies/Adverse Reactions: Allergies Allergy/AdvReac Type Severity Reaction Status Date / Time No Known Allergies Allergy Verified 12/29/16 10:49 Results - Vital Signs Recent Vital Signs: Last Vital Signs Temp 99.1 F 12/29/16 15:51 Pulse 104 H 12/29/16 15:51 Resp 20 12/29/16 15:51 BP 127/94 H 12/29/16 15:51 Pulse Ox 100 12/29/16 16:36 - Labs Result Diagrams: 12/29/16 11:02 12/29/16 11:02
[2016-12-29] MEDS: MethylPREDNISolone 40 mg Vial IVP SCH ×2 (18:02→22:04)
--- NOTE | 2016-12-29 18:50 | CP.PCM.CON ---
History of Present Illness - History of Present Illness History of Present Illness: 6 y/o male, with PMHx includes COPD with pacemaker and cardiac defibrillator, presents to the ED for evaluation of shortness of breath which began this morning. Patient states he was experiencing difficulties with getting any air into his lungs and chest tightness. Patient denies fever, chills, chest pain, cough, extremity numbness/weakness. Past Patient History - Infectious Disease Hx of Infectious Diseases: None - Past Medical History & Family History Past Medical History?: Yes - Past Social History Smoking Status: Never Smoked - CARDIAC Hx Hypercholesterolemia: Yes Hx Hypertension: Yes Hx Pacemaker: Yes (DEFIBRILLATOR) - PULMONARY Hx Chronic Obstructive Pulmonary Disease (COPD): Yes Hx Emphysema: Yes - NEUROLOGICAL Hx Neurological Disorder: No - HEENT Hx HEENT Problems: No - RENAL Hx Chronic Kidney Disease: No - ENDOCRINE/METABOLIC Hx Endocrine Disorders: No - HEMATOLOGICAL/ONCOLOGICAL Hx Blood Disorders: No - INTEGUMENTARY Hx Dermatological Problems: No - MUSCULOSKELETAL/RHEUMATOLOGICAL Hx Musculoskeletal Disorders: No Hx Falls: No - GASTROINTESTINAL Hx Gastrointestinal Disorders: No - GENITOURINARY/GYNECOLOGICAL Hx Genitourinary Disorders: No - PSYCHIATRIC Hx Substance Use: No - SURGICAL HISTORY Other/Comment: PACEMAKER/DEFIBRILLATOR - ANESTHESIA Hx Anesthesia: Yes Hx Anesthesia Reactions: No Meds Allergies/Adverse Reactions: Allergies Allergy/AdvReac Type Severity Reaction Status Date / Time No Known Allergies Allergy Verified 12/29/16 10:49 - Medications Medications: Current Medications Albuterol/Ipratropium (Duoneb 3 Mg/0.5 Mg (3 Ml) Ud) 3 ml INH RQ6 PRN PRN Reason: Shortness of Breath Amiodarone HCl (Cordarone) 200 mg PO DAILY [facility] Aspirin (Ecotrin) 81 mg PO DAILY [facility] Benzonatate (Tessalon Perles) 200 mg PO TID [facility] Last Admin: 12/29/16 13:52 Dose: 200 mg Enoxaparin Sodium (Lovenox) 40 mg SC DAILY [facility] Furosemide (Lasix) 40 mg IVP DAILY [facility] Losartan Potassium (Cozaar) 50 mg PO Q12H [facility] Last Admin: 12/29/16 18:02 Dose: 50 mg Methylprednisolone (Solu-Medrol) 40 mg IVP Q8 [facility] Last Admin: 12/29/16 18:02 Dose: 40 mg Metoprolol Tartrate (Lopressor) 50 mg PO Q12 [facility] Montelukast Sodium (Singulair) 10 mg PO HS [facility] Multivitamins/Minerals (Therapeutic-M Tab) 1 tab PO DAILY [facility] Pantoprazole Sodium (Protonix Ec Tab) 40 mg PO DAILY [facility] Rosuvastatin Calcium (Crestor) 10 mg PO DAILY [facility] Fluticasone/Salmeterol (Advair Diskus 250/50) 1 puff INH RQ12 [facility] Tiotropium [place] (Spiriva) 18 mcg INH RQ24 [facility] Results - Vital Signs Recent Vital Signs: Last Vital Signs Temp 99.1 F 12/29/16 15:51 Pulse 104 H 12/29/16 15:51 Resp 20 12/29/16 15:51 BP 127/94 H 12/29/16 15:51 Pulse Ox 100 12/29/16 16:36 - Labs Result Diagrams: 12/29/16 11:02 12/29/16 11:02 Assessment & Plan (1) COPD with exacerbation Status: Acute (2) Hypertension Status: Acute
[2016-12-29] MEDS: Albuterol-Ipratrop 3 mg / 0.5 (3 ml) UD INH SCH (21:30)
[2016-12-30] MEDS: Albuterol-Ipratrop 3 mg / 0.5 (3 ml) UD INH SCH ×4 (01:34→20:35)
[2016-12-30] MEDS: MethylPREDNISolone 40 mg Vial IVP SCH ×3 (05:30→21:38)
[2016-12-30 07:15] LABS: SQUAMOUS EPITHIAL 15 /hpf (0-5); URINE BACTERIA OCC (<OCC); URINE BILIRUBIN NEGATIVE (NEGATIVE); URINE BLOOD NEGATIVE (NEGATIVE); URINE CLARITY Hazy (Clear); URINE COLOR Yellow (YELLOW); URINE GLUCOSE (UA) NORMAL (Normal); URINE LEUKOCYTE ESTERASE 3+ Leu/uL (Negative); URINE NITRATE NEGATIVE (NEGATIVE); URINE PROTEIN NEGATIVE (NEGATIVE); URINE UROBILINOGEN NORMAL mg/dL (0.2-1.0); WBC CLUMPS FEW /hpf
[2016-12-30] MEDS ORDERED: Tiotropium 18 mcg Cap For Inhalation INH SCH (08:00)
[2016-12-30] MEDS: Fluticasone-Salmeterol 250-50mcg Diskus INH SCH ×2 (08:02→20:35)
[2016-12-30 08:09] VITALS: RESP 20
[2016-12-30] MEDS ORDERED: Home Med 1 UNIT (Methylprednisolone [Medrol Dose Pack (21 Tabs)] 4 MG) PO SCH (10:00)
[2016-12-30] MEDS: Enoxaparin 40 mg Syringe SC SCH (10:48)
[2016-12-30] MEDS: Multivitamin With Minerals Tab PO SCH (10:49)
[2016-12-30] MEDS: Pantoprazole 40 mg EC Tab PO SCH (10:49)
--- NOTE | 2016-12-30 12:34 | CP.PCM.PN ---
Subjective - Date & Time of Evaluation Date of Evaluation: 12/30/16 Time of Evaluation: 11:45 - Subjective Subjective: Patient seen and examined. Still complaining of shortness of breath and cough Denies any chest pain, denies fevers chills Objective - Vital Signs/Intake and Output Vital Signs (last 24 hours): Temp Pulse Resp BP Pulse Ox 97.7 F 78 20 137/91 H 97 12/30/16 07:20 12/30/16 07:20 12/30/16 07:20 12/30/16 10:48 12/30/16 07:20 Intake and Output: 12/30/16 12/30/16 06:59 18:59 Intake Total 800 Output Total 500 Balance 300 - Medications Medications: Current Medications Albuterol/Ipratropium (Duoneb 3 Mg/0.5 Mg (3 Ml) Ud) 3 ml INH RQ6 [facility] Last Admin: 12/30/16 08:02 Dose: 3 ml Amiodarone HCl (Cordarone) 200 mg PO DAILY [facility] Last Admin: 12/30/16 10:47 Dose: 200 mg Aspirin (Ecotrin) 81 mg PO DAILY [facility] Last Admin: 12/30/16 10:48 Dose: 81 mg Benzonatate (Tessalon Perles) 200 mg PO TID [facility] Last Admin: 12/30/16 10:49 Dose: 200 mg Enoxaparin Sodium (Lovenox) 40 mg SC DAILY [facility] Last Admin: 12/30/16 10:48 Dose: 40 mg Furosemide (Lasix) 40 mg IVP DAILY [facility] Last Admin: 12/30/16 10:48 Dose: 40 mg Losartan Potassium (Cozaar) 50 mg PO Q12H [facility] Last Admin: 12/30/16 05:29 Dose: 50 mg Methylprednisolone (Solu-Medrol) 40 mg IVP Q8 [facility] Last Admin: 12/30/16 05:30 Dose: 40 mg Metoprolol Tartrate (Lopressor) 50 mg PO Q12 [facility] Last Admin: 12/30/16 10:48 Dose: 50 mg Montelukast Sodium (Singulair) 10 mg PO HS [facility] Last Admin: 12/29/16 22:04 Dose: 10 mg Multivitamins/Minerals (Therapeutic-M Tab) 1 tab PO DAILY [facility] Last Admin: 12/30/16 10:49 Dose: 1 tab Pantoprazole Sodium (Protonix Ec Tab) 40 mg PO DAILY [facility] Last Admin: 12/30/16 10:49 Dose: 40 mg Pneumococcal Polyvalent Vaccine (Pneumovax 23 Vaccine) 0.5 ml IM .ONCE ONE Stop: 01/01/17 10:01 Rosuvastatin Calcium (Crestor) 10 mg PO DAILY [facility] Last Admin: 12/30/16 10:48 Dose: 10 mg Fluticasone/Salmeterol (Advair Diskus 250/50) 1 puff INH RQ12 [facility] Last Admin: 12/30/16 08:02 Dose: 1 puff Tiotropium [place] (Spiriva) 18 mcg INH RQ24 [facility] - Head Exam Head Exam: ATRAUMATIC, NORMOCEPHALIC - ENT Exam ENT Exam: Mucous Membranes Moist - Neck Exam Neck Exam: Normal Inspection - Respiratory Exam Respiratory Exam: Decreased Breath Sounds - Cardiovascular Exam Cardiovascular Exam: REGULAR RHYTHM - GI/Abdominal Exam GI & Abdominal Exam: Normal Bowel Sounds - Extremities Exam Extremities Exam: Normal Inspection Assessment and Plan (1) COPD with exacerbation Assessment & Plan: Continue nebulizer treatment, IV steroids and antibiotics Status: Acute (2) Hypertension Status: Acute
--- NOTE | 2016-12-30 12:37 | CP.PCM.PN ---
Subjective - Date & Time of Evaluation Date of Evaluation: 12/30/16 Time of Evaluation: 14:20 - Subjective Subjective: clinically same Objective - Vital Signs/Intake and Output Vital Signs (last 24 hours): Temp Pulse Resp BP Pulse Ox 97.7 F 78 20 137/91 H 97 12/30/16 07:20 12/30/16 07:20 12/30/16 07:20 12/30/16 10:48 12/30/16 07:20 Intake and Output: 12/30/16 12/30/16 06:59 18:59 Intake Total 800 Output Total 500 Balance 300 - Medications Medications: Current Medications Albuterol/Ipratropium (Duoneb 3 Mg/0.5 Mg (3 Ml) Ud) 3 ml INH RQ6 [facility] Last Admin: 12/30/16 08:02 Dose: 3 ml Amiodarone HCl (Cordarone) 200 mg PO DAILY [facility] Last Admin: 12/30/16 10:47 Dose: 200 mg Aspirin (Ecotrin) 81 mg PO DAILY [facility] Last Admin: 12/30/16 10:48 Dose: 81 mg Benzonatate (Tessalon Perles) 200 mg PO TID [facility] Last Admin: 12/30/16 10:49 Dose: 200 mg Enoxaparin Sodium (Lovenox) 40 mg SC DAILY [facility] Last Admin: 12/30/16 10:48 Dose: 40 mg Furosemide (Lasix) 40 mg IVP DAILY [facility] Last Admin: 12/30/16 10:48 Dose: 40 mg Losartan Potassium (Cozaar) 50 mg PO Q12H [facility] Last Admin: 12/30/16 05:29 Dose: 50 mg Methylprednisolone (Solu-Medrol) 40 mg IVP Q8 [facility] Last Admin: 12/30/16 05:30 Dose: 40 mg Metoprolol Tartrate (Lopressor) 50 mg PO Q12 [facility] Last Admin: 12/30/16 10:48 Dose: 50 mg Montelukast Sodium (Singulair) 10 mg PO HS [facility] Last Admin: 12/29/16 22:04 Dose: 10 mg Multivitamins/Minerals (Therapeutic-M Tab) 1 tab PO DAILY [facility] Last Admin: 12/30/16 10:49 Dose: 1 tab Pantoprazole Sodium (Protonix Ec Tab) 40 mg PO DAILY [facility] Last Admin: 12/30/16 10:49 Dose: 40 mg Pneumococcal Polyvalent Vaccine (Pneumovax 23 Vaccine) 0.5 ml IM .ONCE ONE Stop: 01/01/17 10:01 Rosuvastatin Calcium (Crestor) 10 mg PO DAILY [facility] Last Admin: 12/30/16 10:48 Dose: 10 mg Fluticasone/Salmeterol (Advair Diskus 250/50) 1 puff INH RQ12 [facility] Last Admin: 12/30/16 08:02 Dose: 1 puff Tiotropium [place] (Spiriva) 18 mcg INH RQ24 [facility] - Constitutional Appears: Well - Head Exam Head Exam: ATRAUMATIC, NORMAL INSPECTION, NORMOCEPHALIC - Eye Exam Eye Exam: EOMI, Normal appearance, PERRL Pupil Exam: NORMAL ACCOMODATION, PERRL - ENT Exam ENT Exam: Mucous Membranes Moist, Normal Exam - Neck Exam Neck Exam: Full ROM, Normal Inspection. absent: Lymphadenopathy - Respiratory Exam Respiratory Exam: Decreased Breath Sounds - Cardiovascular Exam Cardiovascular Exam: REGULAR RHYTHM, +S1, +S2 - GI/Abdominal Exam GI & Abdominal Exam: Soft, Diminished Bowel Sounds - Rectal Exam Rectal Exam: Deferred
--- NOTE | 2016-12-30 15:29 | CP.PCM.CON ---
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 continue medical treatment, fluid restriction, f/u with pulmonary for COPD Review of Systems - Constitutional Constitutional: Anorexia, Weakness - EENT Eyes: absent: Discharge Ears: absent: Ear Discharge Nose/Mouth/Throat: absent: Epistaxis - Cardiovascular Cardiovascular: absent: Acrocyanosis, Chest Pain, Diaphoresis, Palpitations, Syncope - Respiratory Respiratory: Cough, Dyspnea. absent: Hemoptysis - Gastrointestinal Gastrointestinal: absent: Abdominal Pain, Diarrhea, Hematochezia, Vomiting - Genitourinary Genitourinary: absent: Change in Urinary Stream Past Patient History - Infectious Disease Hx of Infectious Diseases: None - Past Medical History & Family History Past Medical History?: Yes - Past Social History Smoking Status: Former Smoker - CARDIAC Hx Cardiac Disorders: Yes Hx Hypercholesterolemia: Yes Hx Hypertension: Yes Hx Pacemaker: Yes (DEFIBRILLATOR) - PULMONARY Hx Respiratory Disorders: Yes Hx Chronic Obstructive Pulmonary Disease (COPD): Yes Hx Emphysema: Yes - NEUROLOGICAL Hx Neurological Disorder: No - HEENT Hx HEENT Problems: No - RENAL Hx Chronic Kidney Disease: No - ENDOCRINE/METABOLIC Hx Endocrine Disorders: No - HEMATOLOGICAL/ONCOLOGICAL Hx Blood Disorders: No - INTEGUMENTARY Hx Dermatological Problems: No - MUSCULOSKELETAL/RHEUMATOLOGICAL Hx Musculoskeletal Disorders: No Hx Falls: No - GASTROINTESTINAL Hx Gastrointestinal Disorders: No - GENITOURINARY/GYNECOLOGICAL Hx Genitourinary Disorders: No - PSYCHIATRIC Hx Psychophysiologic Disorder: No Hx Substance Use: No - SURGICAL HISTORY Hx Surgeries: Yes Other/Comment: PACEMAKER/DEFIBRILLATOR - ANESTHESIA Hx Anesthesia: Yes Hx Anesthesia Reactions: No Hx Malignant Hyperthermia: No Has any member of the family had a problem w/ anesthesia?: No Meds Allergies/Adverse Reactions: Allergies Allergy/AdvReac Type Severity Reaction Status Date / Time No Known Allergies Allergy Verified 12/29/16 10:49 - Medications Medications: Current Medications Albuterol/Ipratropium (Duoneb 3 Mg/0.5 Mg (3 Ml) Ud) 3 ml INH RQ6 [facility] Last Admin: 12/30/16 13:29 Dose: 3 ml Amiodarone HCl (Cordarone) 200 mg PO DAILY [facility] Last Admin: 12/30/16 10:47 Dose: 200 mg Aspirin (Ecotrin) 81 mg PO DAILY [facility] Last Admin: 12/30/16 10:48 Dose: 81 mg Benzonatate (Tessalon Perles) 200 mg PO TID [facility] Last Admin: 12/30/16 13:46 Dose: 200 mg Enoxaparin Sodium (Lovenox) 40 mg SC DAILY [facility] Last Admin: 12/30/16 10:48 Dose: 40 mg Furosemide (Lasix) 40 mg IVP DAILY [facility] Last Admin: 12/30/16 10:48 Dose: 40 mg Losartan Potassium (Cozaar) 50 mg PO Q12H [facility] Last Admin: 12/30/16 05:29 Dose: 50 mg Methylprednisolone (Solu-Medrol) 40 mg IVP Q8 [facility] Last Admin: 12/30/16 13:46 Dose: 40 mg Metoprolol Tartrate (Lopressor) 50 mg PO Q12 [facility] Last Admin: 12/30/16 10:48 Dose: 50 mg Montelukast Sodium (Singulair) 10 mg PO HS [facility] Last Admin: 12/29/16 22:04 Dose: 10 mg Multivitamins/Minerals (Therapeutic-M Tab) 1 tab PO DAILY [facility] Last Admin: 12/30/16 10:49 Dose: 1 tab Pantoprazole Sodium (Protonix Ec Tab) 40 mg PO DAILY [facility] Last Admin: 12/30/16 10:49 Dose: 40 mg Pneumococcal Polyvalent Vaccine (Pneumovax 23 Vaccine) 0.5 ml IM .ONCE ONE Stop: 01/01/17 10:01 Rosuvastatin Calcium (Crestor) 10 mg PO DAILY [facility] Last Admin: 12/30/16 10:48 Dose: 10 mg Fluticasone/Salmeterol (Advair Diskus 250/50) 1 puff INH RQ12 [facility] Last Admin: 12/30/16 08:02 Dose: 1 puff Tiotropium Tram (Spiriva) 18 mcg INH RQ24 [facility] Physical Exam - Constitutional Appears: Non-toxic - Head Exam Head Exam: ATRAUMATIC - Eye Exam Eye Exam: EOMI - ENT Exam ENT Exam: Mucous Membranes Moist - Neck Exam Neck exam: Negative for: Lymphadenopathy, Tenderness - Respiratory Exam Respiratory Exam: Clear to Auscultation Bilateral. absent: Rales - Cardiovascular Exam Cardiovascular Exam: REGULAR RHYTHM, Systolic Murmur - GI/Abdominal Exam GI & Abdominal Exam: Normal Bowel Sounds. absent: Organomegaly - Rectal Exam Rectal Exam: Deferred - Extremities Exam Extremities exam: Positive for: normal capillary refill. Negative for: calf tenderness - Neurological Exam Neurological exam: Alert, Oriented x3 - Psychiatric Exam Psychiatric exam: Normal Affect - Skin Skin Exam: Dry Results - Vital Signs Recent Vital Signs: Last Vital Signs Temp 97.7 F 12/30/16 07:20 Pulse 78 12/30/16 07:20 Resp 20 12/30/16 07:20 BP 137/91 H 12/30/16 10:48 Pulse Ox 97 12/30/16 07:20 - Labs Result Diagrams: 12/29/16 11:02 12/29/16 11:02 Labs: Laboratory Results - last 24 hr 12/30/16 06:48 Urine Color Yellow Urine Clarity Hazy Urine pH 5.0 Ur Specific [place] 1.019 Urine Protein Negative Urine Glucose (UA) Normal Urine Ketones Trace Urine Blood Negative Urine Nitrate Negative Urine Bilirubin Negative Urine Urobilinogen Normal Ur Leukocyte Esterase 3+ H Urine WBC (Auto) 178 H Urine RBC (Auto) 8 H Urine WBC Clumps (Auto) Few H Ur Squamous Epith Cells 15 H Urine Bacteria Occ H Assessment & Plan (1) COPD (chronic obstructive pulmonary disease) Status: Acute Comment: acute over chronic LV systolic failure, medical teatment (2) CHF (congestive heart failure), NYHA class II Status: Acute Comment: exacerbation, f/u with pul
[2016-12-31] MEDS: Albuterol-Ipratrop 3 mg / 0.5 (3 ml) UD INH SCH ×3 (01:20→13:13)
[2016-12-31] MEDS: MethylPREDNISolone 40 mg Vial IVP SCH ×2 (06:07→13:04)
[2016-12-31] MEDS: Fluticasone-Salmeterol 250-50mcg Diskus INH SCH (08:16)
[2016-12-31] MEDS: Pantoprazole 40 mg EC Tab PO SCH (09:23)
[2016-12-31] MEDS: Multivitamin With Minerals Tab PO SCH (09:23)
[2016-12-31] MEDS: Enoxaparin 40 mg Syringe SC SCH (09:23)
--- NOTE | 2016-12-31 12:25 | CP.PCM.PN ---
Subjective - Date & Time of Evaluation Date of Evaluation: 12/31/16 Time of Evaluation: 12:00 - Subjective Subjective: Less shortness of breath, on diuresis with fluid restriction, daily weights and compliance with medication. ICD in place. Also with treatment for acute exacerbation of chronic obstructive pulmonary disease. Objective - Vital Signs/Intake and Output Vital Signs (last 24 hours): Temp Pulse Resp BP Pulse Ox 97.4 F L 74 20 126/86 98 12/31/16 07:00 12/31/16 07:00 12/31/16 07:00 12/31/16 09:22 12/31/16 07:00 Intake and Output: 12/31/16 12/31/16 06:59 18:59 Intake Total 600 Balance 600 - Medications Medications: Current Medications Albuterol/Ipratropium (Duoneb 3 Mg/0.5 Mg (3 Ml) Ud) 3 ml INH RQ6 [facility] Last Admin: 12/31/16 08:16 Dose: 3 ml Amiodarone HCl (Cordarone) 200 mg PO DAILY [facility] Last Admin: 12/31/16 09:21 Dose: 200 mg Aspirin (Ecotrin) 81 mg PO DAILY [facility] Last Admin: 12/31/16 09:22 Dose: 81 mg Benzonatate (Tessalon Perles) 200 mg PO TID [facility] Last Admin: 12/31/16 09:23 Dose: 200 mg Enoxaparin Sodium (Lovenox) 40 mg SC DAILY [facility] Last Admin: 12/31/16 09:23 Dose: 40 mg Furosemide (Lasix) 40 mg IVP DAILY [facility] Last Admin: 12/31/16 09:22 Dose: 40 mg Losartan Potassium (Cozaar) 50 mg PO Q12H [facility] Last Admin: 12/31/16 06:11 Dose: Not Given Methylprednisolone (Solu-Medrol) 40 mg IVP Q8 [facility] Last Admin: 12/31/16 06:07 Dose: 40 mg Metoprolol Tartrate (Lopressor) 50 mg PO Q12 [facility] Last Admin: 12/31/16 09:23 Dose: 50 mg Montelukast Sodium (Singulair) 10 mg PO HS [facility] Last Admin: 12/30/16 21:38 Dose: 10 mg Multivitamins/Minerals (Therapeutic-M Tab) 1 tab PO DAILY [facility] Last Admin: 12/31/16 09:23 Dose: 1 tab Pantoprazole Sodium (Protonix Ec Tab) 40 mg PO DAILY [facility] Last Admin: 12/31/16 09:23 Dose: 40 mg Pneumococcal Polyvalent Vaccine (Pneumovax 23 Vaccine) 0.5 ml IM .ONCE ONE Stop: 01/01/17 10:01 Rosuvastatin Calcium (Crestor) 10 mg PO DAILY [facility] Last Admin: 12/31/16 09:22 Dose: 10 mg Fluticasone/Salmeterol (Advair Diskus 250/50) 1 puff INH RQ12 [facility] Last Admin: 12/31/16 08:16 Dose: 1 puff Tiotropium Meta (Spiriva) 18 mcg INH RQ24 [facility] Last Admin: 12/31/16 08:16 Dose: 18 mcg - Constitutional Appears: Non-toxic - Head Exam Head Exam: ATRAUMATIC - Eye Exam Eye Exam: EOMI - ENT Exam ENT Exam: Mucous Membranes Moist - Neck Exam Neck Exam: absent: Lymphadenopathy, Thyromegaly - Respiratory Exam Respiratory Exam: Clear to Ausculation Bilateral. absent: Rales - Cardiovascular Exam Cardiovascular Exam: REGULAR RHYTHM, Murmur - GI/Abdominal Exam GI & Abdominal Exam: Normal Bowel Sounds. absent: Organomegaly - Rectal Exam Rectal Exam: Deferred - Extremities Exam Extremities Exam: Normal Capillary Refill. absent: Calf Tenderness - Neurological Exam Neurological Exam: Alert, Oriented x3 - Psychiatric Exam Psychiatric exam: Normal Affect - Skin Skin Exam: Dry Assessment and Plan (1) COPD (chronic obstructive pulmonary disease) Status: Acute (2) CHF (congestive heart failure), NYHA class II Status: Acute
--- NOTE | 2016-12-31 14:22 | CP.PCM.PN ---
Subjective - Date & Time of Evaluation Date of Evaluation: 12/31/16 Time of Evaluation: 14:13 - Subjective Subjective: PT SEEN BY DR. Tana HDZ AND CLEARED FOR D/C HOME. RX GIVEN FOR PREDNISONE AND TESSALON PRN. ALL OTHER MEDS TO BE CONTINUED. HAS A F/U APPT WITH DR. HDZ FOR THIS SATURDAY. 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 NO FURTHER ORDERS. Objective - Vital Signs/Intake and Output Vital Signs (last 24 hours): Temp Pulse Resp BP Pulse Ox 97.4 F L 74 20 126/86 98 12/31/16 07:00 12/31/16 07:00 12/31/16 07:00 12/31/16 09:22 12/31/16 07:00 Intake and Output: 12/31/16 12/31/16 06:59 18:59 Intake Total 600 Balance 600 - Medications Medications: Current Medications Albuterol/Ipratropium (Duoneb 3 Mg/0.5 Mg (3 Ml) Ud) 3 ml INH RQ6 [facility] Last Admin: 12/31/16 13:13 Dose: 3 ml Amiodarone HCl (Cordarone) 200 mg PO DAILY [facility] Last Admin: 12/31/16 09:21 Dose: 200 mg Aspirin (Ecotrin) 81 mg PO DAILY [facility] Last Admin: 12/31/16 09:22 Dose: 81 mg Benzonatate (Tessalon Perles) 200 mg PO TID [facility] Last Admin: 12/31/16 13:04 Dose: 200 mg Enoxaparin Sodium (Lovenox) 40 mg SC DAILY [facility] Last Admin: 12/31/16 09:23 Dose: 40 mg Furosemide (Lasix) 40 mg IVP DAILY [facility] Last Admin: 12/31/16 09:22 Dose: 40 mg Losartan Potassium (Cozaar) 50 mg PO Q12H [facility] Last Admin: 12/31/16 06:11 Dose: Not Given Methylprednisolone (Solu-Medrol) 40 mg IVP Q8 [facility] Last Admin: 12/31/16 13:04 Dose: 40 mg Metoprolol Tartrate (Lopressor) 50 mg PO Q12 [facility] Last Admin: 12/31/16 09:23 Dose: 50 mg Montelukast Sodium (Singulair) 10 mg PO HS [facility] Last Admin: 12/30/16 21:38 Dose: 10 mg Multivitamins/Minerals (Therapeutic-M Tab) 1 tab PO DAILY [facility] Last Admin: 12/31/16 09:23 Dose: 1 tab Pantoprazole Sodium (Protonix Ec Tab) 40 mg PO DAILY [facility] Last Admin: 12/31/16 09:23 Dose: 40 mg Pneumococcal Polyvalent Vaccine (Pneumovax 23 Vaccine) 0.5 ml IM .ONCE ONE Stop: 01/01/17 10:01 Rosuvastatin Calcium (Crestor) 10 mg PO DAILY [facility] Last Admin: 12/31/16 09:22 Dose: 10 mg Fluticasone/Salmeterol (Advair Diskus 250/50) 1 puff INH RQ12 [facility] Last Admin: 12/31/16 08:16 Dose: 1 puff Tiotropium [place] (Spiriva) 18 mcg INH RQ24 [facility] Last Admin: 12/31/16 08:16 Dose: 18 mcg
[2016-12-31 16:03] VITALS: BP 120/82; PULSE 76; TEMP 98.2; O2SAT 95
--- NOTE | 2016-12-31 16:08 | CP.PCM.PN ---
Objective - Vital Signs/Intake and Output Vital Signs (last 24 hours): Temp Pulse Resp BP Pulse Ox 98.2 F 76 20 120/82 95 12/31/16 15:20 12/31/16 15:20 12/31/16 15:20 12/31/16 15:20 12/31/16 15:20 Intake and Output: 12/31/16 12/31/16 06:59 18:59 Intake Total 600 Balance 600 - Medications Medications: Current Medications Albuterol/Ipratropium (Duoneb 3 Mg/0.5 Mg (3 Ml) Ud) 3 ml INH RQ6 [facility] Last Admin: 12/31/16 13:13 Dose: 3 ml Amiodarone HCl (Cordarone) 200 mg PO DAILY [facility] Last Admin: 12/31/16 09:21 Dose: 200 mg Aspirin (Ecotrin) 81 mg PO DAILY [facility] Last Admin: 12/31/16 09:22 Dose: 81 mg Benzonatate (Tessalon Perles) 200 mg PO TID [facility] Last Admin: 12/31/16 13:04 Dose: 200 mg Enoxaparin Sodium (Lovenox) 40 mg SC DAILY [facility] Last Admin: 12/31/16 09:23 Dose: 40 mg Furosemide (Lasix) 40 mg IVP DAILY [facility] Last Admin: 12/31/16 09:22 Dose: 40 mg Losartan Potassium (Cozaar) 50 mg PO Q12H [facility] Last Admin: 12/31/16 06:11 Dose: Not Given Methylprednisolone (Solu-Medrol) 40 mg IVP Q8 [facility] Last Admin: 12/31/16 13:04 Dose: 40 mg Metoprolol Tartrate (Lopressor) 50 mg PO Q12 [facility] Last Admin: 12/31/16 09:23 Dose: 50 mg Montelukast Sodium (Singulair) 10 mg PO HS [facility] Last Admin: 12/30/16 21:38 Dose: 10 mg Multivitamins/Minerals (Therapeutic-M Tab) 1 tab PO DAILY [facility] Last Admin: 12/31/16 09:23 Dose: 1 tab Pantoprazole Sodium (Protonix Ec Tab) 40 mg PO DAILY [facility] Last Admin: 12/31/16 09:23 Dose: 40 mg Pneumococcal Polyvalent Vaccine (Pneumovax 23 Vaccine) 0.5 ml IM .ONCE ONE Stop: 01/01/17 10:01 Rosuvastatin Calcium (Crestor) 10 mg PO DAILY [facility] Last Admin: 12/31/16 09:22 Dose: 10 mg Fluticasone/Salmeterol (Advair Diskus 250/50) 1 puff INH RQ12 [facility] Last Admin: 12/31/16 08:16 Dose: 1 puff Tiotropium [place] (Spiriva) 18 mcg INH RQ24 [facility] Last Admin: 12/31/16 08:16 Dose: 18 mcg Assessment and Plan (1) COPD with exacerbation Status: Acute (2) Hypertension Status: Acute
--- NOTE | 2016-12-31 18:26 | CP.PCM.PN ---
Subjective - Date & Time of Evaluation Date of Evaluation: 12/31/16 Time of Evaluation: 12:20 - Subjective Subjective: clinically same Objective - Vital Signs/Intake and Output Vital Signs (last 24 hours): Temp Pulse Resp BP Pulse Ox 98.2 F 76 20 120/82 95 12/31/16 15:20 12/31/16 15:20 12/31/16 15:20 12/31/16 15:20 12/31/16 15:20 Intake and Output: 12/31/16 12/31/16 06:59 18:59 Intake Total 600 Balance 600 - Constitutional Appears: Well - Head Exam Head Exam: ATRAUMATIC, NORMAL INSPECTION, NORMOCEPHALIC - Eye Exam Eye Exam: EOMI, Normal appearance, PERRL Pupil Exam: NORMAL ACCOMODATION, PERRL - ENT Exam ENT Exam: Mucous Membranes Moist, Normal Exam - Neck Exam Neck Exam: Full ROM, Normal Inspection. absent: Lymphadenopathy - Respiratory Exam Respiratory Exam: Decreased Breath Sounds - Cardiovascular Exam Cardiovascular Exam: REGULAR RHYTHM, +S1, +S2 - GI/Abdominal Exam GI & Abdominal Exam: Soft, Diminished Bowel Sounds - Rectal Exam Rectal Exam: Deferred
[2017-01-01] MEDS ORDERED: Pneumococcal 23-Valent Vaccine IM ONE (10:00)
== END 2016-12-31 16:25 | disposition home or self-care (01) | DRG 190 ==
LOC: C.ER 10:37 → C.9E 12:12 → C.6T 14:47
PROVIDERS: ADMIT Internal Medicine Nephrology; ATTEND Internal Medicine Nephrology
DX: J44.1 Chronic obstructive pulmonary disease with (acute) exacerbation (principal); I50.23 Acute on chronic systolic (congestive) heart failure; I42.0 Dilated cardiomyopathy; I11.0 Hypertensive heart disease with heart failure; E78.00 Pure hypercholesterolemia, unspecified; Z87.891 Personal history of nicotine dependence; Z91.19 Patient's noncompliance with other medical treatment and regimen; Z95.810 Presence of automatic (implantable) cardiac defibrillator

== ENCOUNTER 2018-05-19 21:29 | Inpatient (IN) | payer MEDICARE ==
--- NOTE | 2018-05-19 21:36 | C.PDOC ---
History Of Present Illness 77 year old male with PMHx of COPD presents to the ED for evaluation of acute respiratory distress. Patient speaking in 102 word sentences. Patient states he smoked 3 weeks ago. Patient denies fever, chills, nausea, vomit, CP, palpit ations, headache, dizziness. Time Seen by Provider: 05/19/18 21:35 History Per: Patient History/Exam Limitations: no limitations Onset/Duration Of Symptoms: Hrs Current Symptoms Are (Timing): Still Present Initiating Event: Upper Respiratory Illness Quality: Tightness Current Respiratory Medications: See Home Med List Severity: Severe Pain Scale Rating Of: 9 Associated Symptoms: denies: Fever, Chills, Sweating Reports Recently: Seen In ED, Treated By A Physician, Hospitalized Recent travel outside of the [place]: No Additional History Per: Patient Past Medical History Reviewed: Historical Data, Nursing Documentation, Vital Signs - Medical History PMH: Arthritis (Gout), COPD, Emphysema, HTN, Hypercholesterolemia Denies: Chronic Kidney Disease Surgical History: Pacemaker (DEFIBRILLATOR) - [employer] Procedures ASSISTANCE WITH RESPIRATORY VENTILATION, 24-96 HRS, CPAP (02/27/17) Family History: States: Unknown Family Hx - Social History Hx Alcohol Use: No Hx Substance Use: No - Immunization History Hx Tetanus Toxoid Vaccination: Yes Hx Influenza Vaccination: Yes Hx Pneumococcal Vaccination: Yes Review Of Systems Constitutional: Negative for: Fever, Chills ENT: Negative for: Throat Pain Cardiovascular: Negative for: Chest Pain Respiratory: Positive for: Cough, Shortness of Breath, SOB with Excertion. Negative for: Sputum, Wheezing Gastrointestinal: Negative for: Nausea, Vomiting, Abdominal Pain Genitourinary: Negative for: Dysuria Musculoskeletal: Negative for: Back Pain Skin: Negative for: Rash Neurological: Negative for: Weakness, Numbness, Headache, Dizziness Psych: Negative for: Anxiety Physical Exam - Physical Exam Appears: Non-toxic, In Acute Distress Skin: Warm, Dry Head: Normacephalic Eye(s): bilateral: Normal Inspection Oral Mucosa: Moist Neck: Supple Chest: Symmetrical, Other (left pacemaker, mild gynecomastia) Cardiovascular: Rhythm Regular Respiratory: Decreased Breath Sounds, Rales, No Rhonchi, Wheezing Gastrointestinal/Abdominal: Soft, No Tenderness, No Guarding, No Rebound Back: Normal Inspection Extremity: Normal ROM Extremity: Bilateral: Atraumatic, Normal Color And Temperature, Normal ROM Pulses: Left Dorsalis Pedis: Normal, Right Dorsalis Pedis: Normal Neurological/Psych: Oriented x3, Normal Speech, Normal Cognition Gait: Steady ED Course And Treatment - Laboratory Results Result Diagrams: 05/19/18 22:07 05/19/18 22:11 ECG: Interpreted By Me, Viewed By Me ECG Rhythm: Atrial Flutter (4:1), Nonspecific Changes O2 Sat by Pulse Oximetry: 98 Pulse Ox Interpretation: Normal Interpretation Of Abnormal: on bipap - Radiology CXR: Interpreted by Me, Viewed By Me CXR Interpretation: Yes: Cardiomegaly, Other (mild vasc congestion, pacer left). No: Infiltrates, Fracture Progress Note: Plan: - ABG. - EKG. - Labs. - CXR. - Duoneb. - Solumderol 125 mg IVP. - Blood culture. - Influenza A B. - UA Critical Care Time - Critical Care Note Total Time (in mins): 30 Documented critical care: time excludes all time spent performing seperately billable procedures. Disposition Discussed With : Antoni Issa Comment: accepted the pt [facility] is service and took over the care at 10:59PM Doctor Will See Patient In The: Hospital Counseled Patient/Family Regarding: Studies Performed, Diagnosis - Disposition Disposition: HOSPITALIZED Disposition Time: 21:35 Condition: GUARDED - POA Present On Arrival: Poor Glycemic Control - Clinical Impression Clinical Impression: COPD with exacerbation, Respiratory distress, CHF (congestive heart failure) - Scribe Statement The provider has reviewed the documentation as recorded by the Scribe Matthias Cortez All medical record entries made by the Scribe were at my direction and personally dictated by me. I have reviewed the chart and agree that the record accurately reflects my personal performance of the history, physical exam, [facility] decision making, and the department course for this patient. I have also personally directed, reviewed, and agree with the discharge instructions and disposition. Decision To Admit - Pt Status Changed To: Hospital Disposition Of: Inpatient - Admit Certification Admit to Inpatient:: After my assessment, the patient will require hospitalization for at least two midnights. This is because of the severity of symptoms shown, intensity of services needed, and/or the medical risk in this patient being treated as an outpatient. - InPatient: Physician Admission Certification: I certify that this patient requires 2 or more midnights of care for the following reason:: After my assessment, the patient will require hospitalization for at least two midnights. This is because of the severity of symptoms shown, intensity of services needed, and/or the medical risk in this patient being treated as an outpatient. - . Bed Request Type: Telemetry Admitting Physician: Antoni Issa Patient Diagnosis: COPD with exacerbation, Respiratory distress, CHF (congestive heart failure)
[2018-05-19] MEDS ORDERED: Albuterol-Ipratrop 3 mg / 0.5 (3 ml) UD ONE (21:37)
[2018-05-19 21:38] VITALS: BMI 27.4
[2018-05-19] MEDS: Albuterol-Ipratrop 3 mg / 0.5 (3 ml) UD IH SCH ×3 (21:52→22:15)
[2018-05-19 22:08] LABS: ABG ALLEN TEST POS; ARTERIAL BLOOD GAS PCO2 43 mm/Hg (35-45); ARTERIAL BLOOD GAS PH 7.38 (7.35-7.45); ARTERIAL BLOOD GAS PO2 285 mm/Hg (80-100); ARTERIAL BLOOD GAS TCO2 26.7 mmol/L (22-28)
[2018-05-19 22:18] LABS: BASO % 0.4 % (0.0-2.0); EOS % 13.4 % (0.0-4.0); HEMOGLOBIN 14.2 g/dL (12.0-18.0); LYMPH # 1.1 K/uL (1.0-4.3); LYMPH % 14.8 % (20.0-40.0); MEAN CELL VOLUME 99.4 fL (80.0-94.0); MEAN CORPUSCULAR HEMOGLOBIN 33.2 pg (27.0-31.0); MEAN CORPUSCULAR HGB CONC 33.3 g/dL (33.0-37.0); MEAN PLATELET VOLUME 10.9 fL (7.2-11.7); MONO # 0.9 K/uL (0.0-0.8); MONO % 11.7 % (0.0-10.0); NEUT # 4.6 K/uL (1.8-7.0); NEUT % 59.7 % (50.0-75.0); NRBC % 0.1 % (0.0-2.0); RBC 4.28 Mil/uL (4.40-5.90); RED CELL DISTRIBUTION WIDTH 15.5 % (11.5-14.5); WHITE BLOOD COUNT 7.6 K/uL (4.8-10.8)
[2018-05-19 22:29] LABS: INR 1.2; PROTHROMBIN TIME 13.1 SECONDS (9.7-12.2)
[2018-05-19 22:51] LABS: ALB/GLOB RATIO 1.1 (1.0-2.1); ALBUMIN 4.2 g/dL (3.5-5.0); CALCIUM 8.9 mg/dl (8.6-10.4)
[2018-05-19 23:16] LABS: TROPONIN I 0.014 ng/mL (0.00-0.120)
--- NOTE | 2018-05-19 23:44 | CP.PCM.HP ---
Past Patient History - Infectious Disease Hx of Infectious Diseases: None - Past Medical History & Family History Past Medical History?: Yes - Past Social History Smoking Status: Heavy Smoker > 10 Cigarettes Daily - CARDIAC Hx Hypercholesterolemia: Yes Hx Hypertension: Yes Hx Pacemaker: Yes (DEFIBRILLATOR) - PULMONARY Hx Chronic Obstructive Pulmonary Disease (COPD): Yes Hx Emphysema: Yes - NEUROLOGICAL Hx Neurological Disorder: No - HEENT Hx HEENT Problems: No - RENAL Hx Chronic Kidney Disease: No - ENDOCRINE/METABOLIC Hx Endocrine Disorders: No - HEMATOLOGICAL/ONCOLOGICAL Hx Blood Disorders: No - INTEGUMENTARY Hx Dermatological Problems: No - MUSCULOSKELETAL/RHEUMATOLOGICAL Hx Arthritis: Yes (Gout) - GASTROINTESTINAL Hx Gastrointestinal Disorders: No - GENITOURINARY/GYNECOLOGICAL Hx Genitourinary Disorders: No - PSYCHIATRIC Hx Substance Use: No - SURGICAL HISTORY Hx Surgeries: Yes Other/Comment: PACEMAKER/DEFIBRILLATOR - ANESTHESIA Hx Anesthesia: Yes Hx Anesthesia Reactions: No Meds Allergies/Adverse Reactions: Allergies Allergy/AdvReac Type Severity Reaction Status Date / Time crab Allergy RASH Verified 05/19/18 21:46 Results - Vital Signs Recent Vital Signs: Last Vital Signs Temp 98.1 F 05/19/18 21:49 Pulse 86 05/19/18 23:19 Resp 17 05/19/18 23:19 BP 132/105 H 05/19/18 23:19 Pulse Ox 98 05/19/18 23:23 - Labs Result Diagrams: 05/19/18 22:07 05/19/18 22:11 Labs: Laboratory Results - last 24 hr 05/19/18 05/19/18 05/19/18 22:00 22:07 22:07 WBC 7.6 RBC 4.28 L Hgb 14.2 Hct 42.6 MCV 99.4 H D MCH 33.2 H MCHC 33.3 RDW 15.5 H Plt Count 161 MPV 10.9 Neut % (Auto) 59.7 Lymph % (Auto) 14.8 L [place] % (Auto) 11.7 H Eos % (Auto) 13.4 H Baso % (Auto) 0.4 Neut # (Auto) 4.6 Lymph # (Auto) 1.1 [place] # (Auto) 0.9 H Eos # (Auto) 1.0 H Baso # (Auto) 0.0 PT 13.1 H INR 1.2 APTT 34 Puncture Site Rradial pCO2 43 pO2 285 H HCO3 25.0 ABG pH 7.38 ABG Total CO2 26.7 ABG O2 Saturation 100.0 H ABG Base Excess 0 [place]erson Test Pos ABG Potassium 3.9 A-a O2 Difference 18.0 Respiratory Index 0.1 Sodium 141.0 Chloride 111.0 H Glucose 145 H Lactate 1.0 Vent Mode Bipap FiO2 50.0 Inspiratory BiPAP 14 Expiratory BiPAP 8 Potassium Carbon Dioxide Anion Gap BUN Creatinine Est GFR ( Amer) Est GFR (Non-Af Amer) Random Glucose Calcium Total Bilirubin AST ALT Alkaline Phosphatase Troponin I NT-Pro-B Natriuret Pep Total Protein Albumin Globulin Albumin/Globulin Ratio Arterial Blood Potassium 3.9 Influenza Typ A,B (EIA) 05/19/18 05/19/18 22:07 22:11 WBC RBC Hgb Hct MCV MCH MCHC RDW Plt Count MPV Neut % (Auto) Lymph % (Auto) [place] % (Auto) Eos % (Auto) Baso % (Auto) Neut # (Auto) Lymph # (Auto) [place] # (Auto) Eos # (Auto) Baso # (Auto) PT INR APTT Puncture Site pCO2 pO2 HCO3 ABG pH ABG Total CO2 ABG O2 Saturation ABG Base Excess [place]erson Test ABG Potassium A-a O2 Difference Respiratory Index Sodium 141 Chloride 103 Glucose Lactate Vent Mode FiO2 Inspiratory BiPAP Expiratory BiPAP Potassium 4.6 Carbon Dioxide 26 Anion Gap 16 BUN 25 H Creatinine 1.6 H Est GFR ( Amer) 51 Est GFR (Non-Af Amer) 42 Random Glucose 124 H Calcium 8.9 Total Bilirubin 0.5 AST 45 ALT 30 Alkaline Phosphatase 81 Troponin I 0.0140 NT-Pro-B Natriuret Pep 5890 H Total Protein 8.1 Albumin 4.2 Globulin 3.9 Albumin/Globulin Ratio 1.1 Arterial Blood Potassium Influenza Typ A,B (EIA) Negative for flu a/b
[2018-05-20 01:37] LABS: SQUAMOUS EPITHIAL < 1 /hpf (0-5); URINE BILIRUBIN NEGATIVE (NEGATIVE); URINE CLARITY Clear (Clear); URINE COLOR Straw (YELLOW); URINE GLUCOSE (UA) NORMAL (Normal); URINE LEUKOCYTE ESTERASE NEG Leu/uL (Negative); URINE PROTEIN NEGATIVE (NEGATIVE); URINE UROBILINOGEN NORMAL mg/dL (0.2-1.0)
[2018-05-20 01:45] LABS: URINE BLOOD NEGATIVE (NEGATIVE)
[2018-05-20] MEDS: Albuterol-Ipratrop 3 mg / 0.5 (3 ml) UD INH SCH ×3 (02:01→11:22)
[2018-05-20] MEDS ORDERED: Albuterol-Ipratrop 3 mg / 0.5 (3 ml) UD ONE (02:02)
[2018-05-20] MEDS ORDERED: MethylPREDNISolone 40 mg Vial ONE (05:29)
[2018-05-20] MEDS ORDERED: Labetalol 25mg/5ml Syringe IVP STA (06:13)
[2018-05-20] MEDS ORDERED: Labetalol 5mg/ml (4ml) ONE (06:19)
--- NOTE | 2018-05-20 07:31 | CP.PCM.PN ---
Subjective - Date & Time of Evaluation Date of Evaluation: 05/20/18 Time of Evaluation: 13:44 - Subjective Subjective: Medicine Note for Dr. Jim Issa's Service This is a 77 year old male with PMHx of Hypertension, Hyperlipidemia, Systolic Heart Failure with AICD, Non-ischemic Cardiomyopathy, COPD, CKD, BPH, and Prostate Cancer currently on radiation who was admitted for COPD and HF exacerbation. Patient current is speaking in fragments due to difficulty breathing despite being on nasal cannula. Patient reports he was in a state of good health until this past weekend. His breathing became more labored and he was using his nebulizer treatment ever 2-4 hours with little to no improvement. Patient lives alone, is able to perform his ADLs, ambulates with cane. Admitted to a productive cough with white sputum; denied any associated fever, chills, sick contacts, recent travels. He did not receive his flu shot this year. PMHx: As noted above PSHx: ICD 2010, Prostate biopsy, Cardiac Cath (nonobstructive) All: NKDA SHx: Smoked 1/2 PPD for 58 years quit 3 weeks prior to admission, drinks 2 10 ounce beers daily with dinner, denied any illicit drug use Woven Label Designer: Dr. Trammell ([facility]) Pulm: Dr. Wilkerson Urologist: Dr. Jasper De Anda Objective - Vital Signs/Intake and Output Vital Signs (last 24 hours): Temp Pulse Resp BP Pulse Ox 97.6 F 81 26 H 123/98 H 98 05/20/18 06:55 05/20/18 07:05 05/20/18 07:05 05/20/18 06:27 05/20/18 07:05 Intake and Output: 05/20/18 05/20/18 06:59 18:59 Output Total 450 Balance -450 - Medications Medications: Current Medications Albuterol/Ipratropium (Duoneb 3 Mg/0.5 Mg (3 Ml) Ud) 3 ml INH RQ6 [facility] Last Admin: 05/20/18 02:01 Dose: 3 ml Aspirin (Ecotrin) 81 mg PO DAILY [facility] Enoxaparin Sodium (Lovenox) 40 mg SC DAILY [facility] Fluticasone/Vilanterol (Breo Ellipta 100-25 Mcg Inh) 1 puff INH DAILY [facility] Furosemide (Lasix) 40 mg IVP DAILY [facility] Home Med (Bicalutamide [Casodex]) 50 mg PO DAILY [facility] Home Med (Multivitamin/Iron/Folic Acid [Centrum Adults Tablet]) 1 each PO DAILY [facility] Home Med (Simvastatin [Simvastatin]) 40 mg PO HS [facility] Azithromycin 500 mg/ Sodium (Chloride) 250 mls @ 250 mls/hr IVPB DAILY [facility]; Protocol Ceftriaxone Sodium 1 gm/ (Sodium Chloride) 100 mls @ 100 mls/hr IVPB DAILY [facility]; Protocol Methylprednisolone (Solu-Medrol) 40 mg IV Q8H [facility] Last Admin: 05/20/18 05:34 Dose: 40 mg Metoprolol Tartrate (Lopressor) 25 mg PO Q12 [facility] Pantoprazole Sodium (Protonix Ec Tab) 40 mg PO DAILY [facility] Tamsulosin HCl (Flomax) 1 mg PO DAILY [facility] - Labs Labs: 05/19/18 22:07 05/19/18 22:11 PT 13.1 SECONDS (9.7-12.2) H 05/19/18 22:07 INR 1.2 05/19/18 22:07 APTT 34 SECONDS (21-34) 05/19/18 22:07 - Constitutional Appears: No Acute Distress - Head Exam Head Exam: NORMAL INSPECTION, NORMOCEPHALIC - Eye Exam Eye Exam: EOMI, Normal appearance, PERRL Pupil Exam: NORMAL ACCOMODATION - ENT Exam ENT Exam: Mucous Membranes Moist Additional comments: poor dentition - Neck Exam Neck Exam: absent: Lymphadenopathy, Tenderness, Thyromegaly - Respiratory Exam Respiratory Exam: Decreased Breath Sounds, Wheezes - Cardiovascular Exam Cardiovascular Exam: Irregular Rhythm Additional comments: atrial flutter on telemetry and EKG - GI/Abdominal Exam GI & Abdominal Exam: Soft, Normal Bowel Sounds. absent: Distended, Tenderness - Extremities Exam Extremities Exam: Normal Inspection. absent: Pedal Edema, Tenderness - Neurological Exam Neurological Exam: Alert, Awake, Oriented x3 - Psychiatric Exam Psychiatric exam: Normal Affect, Normal Mood - Skin Skin Exam: Dry, Intact, Normal Color, Warm Assessment and Plan - Assessment and Plan (Free Text) Plan: COPD Exacerbation - Pulmonology consulted, Dr. Wilkerson (patient's personal Associate Web Developer) Management: - Started Duonebs Q4, Breo Ellipta, Solumedrol 40mg Q8H (will titrate base on clinical improvement), Daliresp daily, Spiriva, Mucinex x 3 days - CXR: no infiltrates or effusions noted, Procal low, negative flu, normal lact ate level will DC antibiotics New Onset Atrial Flutter - Cardiology Consulted : Dr. Ma, help appreciated Management: - CHADsVASC score of 4 - Started on Heparin Drip, Metoprolol 25mg PO Q6H - No prior history of atrial flutter/fibrillation, requesting medical records from Dr. Trammell (Woven Label Designer) - Will transition to DOAC Hypertension - Called patient's pharmacy, currently not on mainor/arb was on valsartan last refilled in 02/2018 - ASA daily, will start Losartan 25mg PO daily Hyperlipidemia - Resumed statin therapy AYANNA on CKD - Continue to monitor BPH - Continue Flomax Tobacco Use Disorder - Nicotine patch daily Systolic Heart Failure with AICD (2010) Non-ischemic Cardiomyopathy s/p cath in 2010 (nonobstructive coronaries) Prostate Cancer (diagnosed 11/2017) On radiation (started 12/2017) Prophylactic Measures - GI PPX: Protonix 40mg daily - DVT PPX: SCDs, heparin drip - PT eval for possible home o2 All medical management as per Dr. Jim Issa, Candida Belle DO, PGY2
--- NOTE | 2018-05-20 09:08 | RAD ---
Date of service: 05/19/2018 PROCEDURE: CHEST RADIOGRAPH, 1 VIEW HISTORY: SOB COMPARISON: 02/25/2017 FINDINGS: LUNGS: No consolidation seen. PLEURA: No pneumothorax or pleural fluid seen. CARDIOVASCULAR: There is presence of aortic atherosclerotic calcification on x-ray. Tortuous unfolded thoracic aorta-similar mild cardiomegaly-similar. Mild pulmonary venous congestion suspect-shallow lung volumes noted. Duallead pacemaker AICD device in place as before. OSSEOUS STRUCTURES: No significant abnormalities. VISUALIZED UPPER ABDOMEN: Normal. OTHER FINDINGS: None. IMPRESSION: Cardiomegaly and mild pulmonary venous congestion-similar. Pacemaker appears intact and grossly satisfactory in position-as before.
[2018-05-20] MEDS: Lactobacillus Acidophilus 500 MU Cap PO SCH ×2 (09:44→16:59)
[2018-05-20] MEDS: Pantoprazole 40 mg EC Tab PO SCH (09:45)
[2018-05-20] MEDS: guaiFENesin 600 mg ER Tab PO SCH ×2 (09:46→16:59)
[2018-05-20] MEDS: Heparin25000 units/250ml 1/2NS 25,000 UNITS/250 ML BAG IV PRN ×3 (09:47→19:55)
[2018-05-20] MEDS ORDERED: FOLIC ACID PO SCH (10:00)
[2018-05-20] MEDS ORDERED: IRON PO SCH (10:00)
[2018-05-20] MEDS ORDERED: Home Med 1 UNIT (Bicalutamide [Casodex] 50 MG) PO SCH (10:00)
[2018-05-20] MEDS ORDERED: Fluticasone-Vilanterol 100/25mcg Diskus INH SCH (10:00)
[2018-05-20] MEDS ORDERED: MULTIVITAMIN PO SCH (10:00)
[2018-05-20] MEDS ORDERED: Enoxaparin 40 mg Syringe SC SCH (10:00)
[2018-05-20] MEDS ORDERED: Azithromycin 500 MG in Sodium Chloride 0.9% 250 ML IVPB SCH (10:00)
[2018-05-20] MEDS: Tiotropium 18 mcg Cap For Inhalation INH SCH (11:22)
--- NOTE | 2018-05-20 11:42 | CP.PCM.CON ---
History of Present Illness - History of Present Illness History of Present Illness: Patient is a 77-year-old gentleman who has history of heavy smoking, reports quit smoking three weeks ago, has history of hypertension, COPD emphysema, and history of AICD placement in 2007.... 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 patient lives alone and independent with ADLs. no major surgical history is reported other than his ICD implant we are called because EKG shows atrial flutter rhythm. Currently he is normotensive and complains of mild uri type cough and c ongestion. IN addition he has CKD stage 3, stage 2 HTN and elevated pBNP Review of Systems - Review of Systems All systems: reviewed and no additional remarkable complaints except Review of Systems: that mentioned in HPI Past Patient History - Infectious Disease Hx of Infectious Diseases: None - Past Medical History & Family History Past Medical History?: Yes - Past Social History Smoking Status: Current Some Days Smoker - CARDIAC Hx Hypercholesterolemia: Yes Hx Hypertension: Yes Hx Pacemaker: Yes (DEFIBRILLATOR) - PULMONARY Hx Chronic Obstructive Pulmonary Disease (COPD): Yes Hx Emphysema: Yes - NEUROLOGICAL Hx Neurological Disorder: No - HEENT Hx HEENT Problems: No - RENAL Hx Chronic Kidney Disease: No - ENDOCRINE/METABOLIC Hx Endocrine Disorders: No - HEMATOLOGICAL/ONCOLOGICAL Hx Blood Disorders: No - INTEGUMENTARY Hx Dermatological Problems: No - MUSCULOSKELETAL/RHEUMATOLOGICAL Hx Arthritis: Yes (Gout) Hx Falls: No - GASTROINTESTINAL Hx Gastrointestinal Disorders: No - GENITOURINARY/GYNECOLOGICAL Hx Genitourinary Disorders: No - PSYCHIATRIC Hx Substance Use: No - SURGICAL HISTORY Hx Surgeries: Yes Other/Comment: PACEMAKER/DEFIBRILLATOR - ANESTHESIA Hx Anesthesia: Yes Hx Anesthesia Reactions: No Meds Allergies/Adverse Reactions: Allergies Allergy/AdvReac Type Severity Reaction Status Date / Time crab Allergy RASH Verified 05/19/18 21:46 - Medications Medications: Current Medications Albuterol/Ipratropium (Duoneb 3 Mg/0.5 Mg (3 Ml) Ud) 3 ml INH RQ4 [facility] Last Admin: 05/20/18 11:22 Dose: 3 ml Aspirin (Ecotrin) 81 mg PO DAILY [facility] Last Admin: 05/20/18 09:47 Dose: 81 mg Fluticasone/Vilanterol (Breo Ellipta 100-25 Mcg Inh) 1 puff INH DAILY [facility] Furosemide (Lasix) 40 mg IVP DAILY [facility] Last Admin: 05/20/18 09:45 Dose: 40 mg Guaifenesin (Mucinex La) 600 mg PO BID [facility] Stop: 05/23/18 10:01 Last Admin: 05/20/18 09:46 Dose: 600 mg Azithromycin 500 mg/ Sodium (Chloride) 250 mls @ 250 mls/hr IVPB DAILY [facility]; Protocol Last Admin: 05/20/18 10:57 Dose: 250 mls/hr Ceftriaxone Sodium 1 gm/ (Sodium Chloride) 100 mls @ 100 mls/hr IVPB DAILY [facility]; Protocol Last Admin: 05/20/18 10:56 Dose: 100 mls/hr Heparin Sodium/Sodium Chloride (Heparin 84732 Units/250ml 1/2 Normal Saline) 25,000 units in 250 mls @ 8.818 mls/hr IV .Q24H [facility]; Protocol PRN Reason: ADJUST RATE PER PROTOCOL Last Admin: 05/20/18 09:47 Dose: 12 units/kg/hr, 8.818 mls/hr Influenza Virus Vaccine (Fluzone Quad [id number]) 60 mcg IM .ONCE ONE Stop: 05/22/18 10:01 Lactobacillus Acidophilus (Bacid Acidophilus) 1 cap PO BID [facility] Last Admin: 05/20/18 09:44 Dose: 1 cap Methylprednisolone (Solu-Medrol) 40 mg IV Q8 [facility] Metoprolol Tartrate (Lopressor) 25 mg PO Q6H [facility] Nicotine (Nicoderm Cq) 1 patch TD RQD [facility] Last Admin: 05/20/18 10:57 Dose: 1 patch Pantoprazole Sodium (Protonix Ec Tab) 40 mg PO DAILY [facility] Last Admin: 05/20/18 09:45 Dose: 40 mg Roflumilast (Daliresp) 500 mcg PO DAILY [facility] Last Admin: 05/20/18 10:56 Dose: 500 mcg Rosuvastatin Calcium (Crestor) 10 mg PO HS [facility] Tamsulosin HCl (Flomax) 0.4 mg PO DAILY [facility] Last Admin: 05/20/18 09:47 Dose: 0.4 mg Tiotropium [place] (Spiriva) 18 mcg INH RQ24 [facility] Last Admin: 05/20/18 11:22 Dose: 18 mcg Physical Exam - Constitutional Appears: Older Than Stated Age - Head Exam Head Exam: ATRAUMATIC, NORMAL INSPECTION, NORMOCEPHALIC - Eye Exam Eye Exam: EOMI, Normal appearance. absent: Scleral icterus - ENT Exam ENT Exam: Mucous Membranes Moist, Normal Oropharynx - Neck Exam Neck exam: Positive for: Normal Inspection - Respiratory Exam Respiratory Exam: Rhonchi, NORMAL BREATHING PATTERN. absent: Rales, Respiratory Distress - Cardiovascular Exam Cardiovascular Exam: REGULAR RHYTHM, +S1, +S2. absent: Systolic Murmur - GI/Abdominal Exam GI & Abdominal Exam: Normal Bowel Sounds, Soft. absent: Pulsatile Mass, Rebound, Tenderness - Extremities Exam Extremities exam: Positive for: pedal pulses present. Negative for: calf tenderness, pedal edema - Neurological Exam Neurological exam: Alert, CN II-XII Intact, Oriented x3 - Psychiatric Exam Psychiatric exam: Normal Affect, Normal Mood - Skin Skin Exam: Dry, Normal Color, Warm Results - Vital Signs Recent Vital Signs: Last Vital Signs Temp 97.6 F 05/20/18 07:40 Pulse 82 05/20/18 11:25 Resp 18 05/20/18 08:35 BP 156/111 H 05/20/18 09:50 Pulse Ox 100 05/20/18 08:35 - Labs Result Diagrams: 05/19/18 22:07 05/19/18 22:11 Labs: Laboratory Results - last 24 hr 05/19/18 05/19/18 05/19/18 22:00 22:07 22:07 WBC 7.6 RBC 4.28 L Hgb 14.2 Hct 42.6 MCV 99.4 H D MCH 33.2 H MCHC 33.3 RDW 15.5 H Plt Count 161 MPV 10.9 Neut % (Auto) 59.7 Lymph % (Auto) 14.8 L Park % (Auto) 11.7 H Eos % (Auto) 13.4 H Baso % (Auto) 0.4 Neut # (Auto) 4.6 Lymph # (Auto) 1.1 Park # (Auto) 0.9 H Eos # (Auto) 1.0 H Baso # (Auto) 0.0 PT 13.1 H INR 1.2 APTT 34 Puncture Site Rradial pCO2 43 pO2 285 H HCO3 25.0 ABG pH 7.38 ABG Total CO2 26.7 ABG O2 Saturation 100.0 H ABG Base Excess 0 Gerson Test Pos ABG Potassium 3.9 A-a O2 Difference 18.0 Respiratory Index 0.1 Sodium 141.0 Chloride 111.0 H Glucose 145 H Lactate 1.0 Vent Mode Bipap FiO2 50.0 Inspiratory BiPAP 14 Expiratory BiPAP 8 Potassium Carbon Dioxide Anion Gap BUN Creatinine Est GFR ( Amer) Est GFR (Non-Af Amer) Random Glucose Calcium Total Bilirubin AST ALT Alkaline Phosphatase Troponin I NT-Pro-B Natriuret Pep Total Protein Albumin Globulin Albumin/Globulin Ratio Arterial Blood Potassium 3.9 Urine Color Urine Clarity Urine pH Ur Specific Oneco Urine Protein Urine Glucose (UA) Urine Ketones Urine Blood Urine Nitrate Urine Bilirubin Urine Urobilinogen Ur Leukocyte Esterase Urine WBC (Auto) Urine RBC (Auto) Ur Squamous Epith Cells Influenza Typ A,B (EIA) 05/19/18 05/19/18 05/20/18 22:07 22:11 01:32 WBC RBC Hgb Hct MCV MCH MCHC RDW Plt Count MPV Neut % (Auto) Lymph % (Auto) Park % (Auto) Eos % (Auto) Baso % (Auto) Neut # (Auto) Lymph # (Auto) Park # (Auto) Eos # (Auto) Baso # (Auto) PT INR APTT Puncture Site pCO2 pO2 HCO3 ABG pH ABG Total CO2 ABG O2 Saturation ABG Base Excess Gerson Test ABG Potassium A-a O2 Difference Respiratory Index Sodium 141 Chloride 103 Glucose Lactate Vent Mode FiO2 Inspiratory BiPAP Expiratory BiPAP Potassium 4.6 Carbon Dioxide 26 Anion Gap 16 BUN 25 H Creatinine 1.6 H Est GFR ( Amer) 51 Est GFR (Non-Af Amer) 42 Random Glucose 124 H Calcium 8.9 Total Bilirubin 0.5 AST 45 ALT 30 Alkaline Phosphatase 81 Troponin I 0.0140 NT-Pro-B Natriuret Pep 5890 H Total Protein 8.1 Albumin 4.2 Globulin 3.9 Albumin/Globulin Ratio 1.1 Arterial Blood Potassium Urine Color Straw Urine Clarity Clear Urine pH 6.0 Ur Specific Oneco 1.006 Urine Protein Negative Urine Glucose (UA) Normal Urine Ketones Negative Urine Blood Negative Urine Nitrate Negative Urine Bilirubin Negative Urine Urobilinogen Normal Ur Leukocyte Esterase Neg Urine WBC (Auto) < 1 Urine RBC (Auto) 2 Ur Squamous Epith Cells < 1 Influenza Typ A,B (EIA) Negative for flu a/b 05/20/18 05/20/18 05:37 09:26 WBC RBC Hgb Hct MCV MCH MCHC RDW Plt Count MPV Neut % (Auto) Lymph % (Auto) Park % (Auto) Eos % (Auto) Baso % (Auto) Neut # (Auto) Lymph # (Auto) Park # (Auto) Eos # (Auto) Baso # (Auto) PT INR APTT 32 Puncture Site pCO2 pO2 HCO3 ABG pH ABG Total CO2 ABG O2 Saturation ABG Base Excess Gerson Test ABG Potassium A-a O2 Difference Respiratory Index Sodium Chloride Glucose Lactate Vent Mode FiO2 Inspiratory BiPAP Expiratory BiPAP Potassium Carbon Dioxide Anion Gap BUN Creatinine Est GFR ( Amer) Est GFR (Non-Af Amer) Random Glucose Calcium Total Bilirubin AST ALT Alkaline Phosphatase Troponin I NT-Pro-B Natriuret Pep 5160 H Total Protein Albumin Globulin Albumin/Globulin Ratio Arterial Blood Potassium Urine Color Urine Clarity Urine pH Ur Specific Oneco Urine Protein Urine Glucose (UA) Urine Ketones Urine Blood Urine Nitrate Urine Bilirubin Urine Urobilinogen Ur Leukocyte Esterase Urine WBC (Auto) Urine RBC (Auto) Ur Squamous Epith Cells Influenza Typ A,B (EIA) - EKG Data EKG Interpreted by: Myself - Imaging and Cardiology Chest x-ray Status: Image reviewed by me Assessment & Plan - Assessment and Plan (Free Text) Assessment: 77-year-old with chronic COPD [id number] with chronic COPD emphysema history of heavy smoking AICD placement history of severe systolic dysfunction I am not sure if a flutter is permanent or transient precipitated by recent exacerbation of COPD .. is EKG shows typical flutter with a ventricular paste rhythm. Plan... i will attempt to contact his master control technician to obtain detailed information regarding his cardiomyopathy as well as underlying rhythm. meanwhile patient has a Chadsvasc score of at least 4.... justifying use of anticoagulation....Heparin can be used initially with suggestion of conversion to an oral DOAC, IE ELIQUIS. continue optimal therapy for heart failure including change to a long acting beta xuan such as car carvedilol, ARB, lasix, .... Entresto should be considered as an outpatient, as well as need to restore rhythm to NSR as outpatient with his master control technician. .... Rate is controlled for now .... continue Rx and supportive care for COPD - Date & Time Date: 05/20/18 Time: 09:00
[2018-05-20] MEDS: MethylPREDNISolone 40 mg Vial IV SCH ×2 (13:25→21:44)
--- NOTE | 2018-05-20 14:14 | CP.PCM.PN ---
Subjective - Date & Time of Evaluation Date of Evaluation: 05/20/18 Time of Evaluation: 12:00 - Subjective Subjective: clinically same Objective - Vital Signs/Intake and Output Vital Signs (last 24 hours): Temp Pulse Resp BP Pulse Ox 97.6 F 82 18 121/89 99 05/20/18 12:00 05/20/18 12:00 05/20/18 12:00 05/20/18 11:35 05/20/18 12:00 Intake and Output: 05/20/18 05/20/18 06:59 18:59 Intake Total 685.2 Output Total 450 1000 Balance -450 -314.8 - Medications Medications: Current Medications Albuterol/Ipratropium (Duoneb 3 Mg/0.5 Mg (3 Ml) Ud) 3 ml INH RQ4 [facility] Last Admin: 05/20/18 11:22 Dose: 3 ml Aspirin (Ecotrin) 81 mg PO DAILY [facility] Last Admin: 05/20/18 09:47 Dose: 81 mg Fluticasone/Vilanterol (Breo Ellipta 100-25 Mcg Inh) 1 puff INH DAILY [facility] Furosemide (Lasix) 40 mg IVP DAILY [facility] Last Admin: 05/20/18 09:45 Dose: 40 mg Guaifenesin (Mucinex La) 600 mg PO BID [facility] Stop: 05/23/18 10:01 Last Admin: 05/20/18 09:46 Dose: 600 mg Azithromycin 500 mg/ Sodium (Chloride) 250 mls @ 250 mls/hr IVPB DAILY [facility]; Protocol Last Admin: 05/20/18 10:57 Dose: 250 mls/hr Ceftriaxone Sodium 1 gm/ (Sodium Chloride) 100 mls @ 100 mls/hr IVPB DAILY [facility]; Protocol Last Admin: 05/20/18 10:56 Dose: 100 mls/hr Heparin Sodium/Sodium Chloride (Heparin 17323 Units/250ml 1/2 Normal Saline) 25,000 units in 250 mls @ 8.818 mls/hr IV .Q24H [facility]; Protocol PRN Reason: ADJUST RATE PER PROTOCOL Last Admin: 05/20/18 09:47 Dose: 12 units/kg/hr, 8.818 mls/hr Lactobacillus Acidophilus (Bacid Acidophilus) 1 cap PO BID [facility] Last Admin: 05/20/18 09:44 Dose: 1 cap Methylprednisolone (Solu-Medrol) 40 mg IV Q8 [facility] Last Admin: 05/20/18 13:25 Dose: 40 mg Metoprolol Tartrate (Lopressor) 25 mg PO Q6H [facility] Nicotine (Nicoderm Cq) 1 patch TD RQD [facility] Last Admin: 05/20/18 10:57 Dose: 1 patch Pantoprazole Sodium (Protonix Ec Tab) 40 mg PO DAILY [facility] Last Admin: 05/20/18 09:45 Dose: 40 mg Roflumilast (Daliresp) 500 mcg PO DAILY [facility] Last Admin: 05/20/18 10:56 Dose: 500 mcg Rosuvastatin Calcium (Crestor) 10 mg PO HS [facility] Tamsulosin HCl (Flomax) 0.4 mg PO DAILY [facility] Last Admin: 05/20/18 09:47 Dose: 0.4 mg Tiotropium [place] (Spiriva) 18 mcg INH RQ24 [facility] Last Admin: 05/20/18 11:22 Dose: 18 mcg - Labs Labs: 05/19/18 22:07 05/19/18 22:11 PT 13.1 SECONDS (9.7-12.2) H 05/19/18 22:07 INR 1.2 05/19/18 22:07 APTT 32 SECONDS (21-34) 05/20/18 09:26 - Constitutional Appears: Well - Head Exam Head Exam: ATRAUMATIC, NORMAL INSPECTION, NORMOCEPHALIC - Eye Exam Eye Exam: EOMI, Normal appearance, PERRL Pupil Exam: NORMAL ACCOMODATION, PERRL - ENT Exam ENT Exam: Mucous Membranes Moist, Normal Exam - Neck Exam Neck Exam: Full ROM, Normal Inspection. absent: Lymphadenopathy - Respiratory Exam Respiratory Exam: Decreased Breath Sounds - Cardiovascular Exam Cardiovascular Exam: REGULAR RHYTHM, +S1, +S2 - GI/Abdominal Exam GI & Abdominal Exam: Soft, Diminished Bowel Sounds - Rectal Exam Rectal Exam: Deferred
--- NOTE | 2018-05-20 17:33 | CP.PCM.CON ---
History of Present Illness - History of Present Illness History of Present Illness: HPI: 77 year old male with PMH of COPD presented tot he ED for evaluation of acute respiratory distress. + cough, SOB. Denies fever, chills, CP, palpitations, dizziness, N/V/C/D. PMH: arthritis (gout), COPD/emphysema, HTN, hypercholesterolemia, CHF Surg hx: defibrillator pacemaker Family hx: unknown Allergies: crab (rash) Social hx: heavy smoker >10 cigarettes daily. Denies alcohol and illicit drug use. Meds: Duoneb 3mg/0.5 mg, ASA, azithromycin, ceftriaxone, Breo Ellipta 100-25 mcg, Lasix, Heparin, Solu-Medrol, Lopressor, Nicoderm, Daliresp, Crestor, Flomax, Spiriva CXR 05/19: cardiomegaly and mild pulmonary venous congestion - similar to CXR from 02/25/17. Pacemaker appears intact and grossly satisfactory in position - as before. Review of Systems - Review of Systems All systems: reviewed and no additional remarkable complaints except (hortness of breath) Past Patient History - Infectious Disease Hx of Infectious Diseases: None - Past Medical History & Family History Past Medical History?: Yes - Past Social History Smoking Status: Current Some Days Smoker - CARDIAC Hx Hypercholesterolemia: Yes Hx Hypertension: Yes Hx Pacemaker: Yes (DEFIBRILLATOR) - PULMONARY Hx Chronic Obstructive Pulmonary Disease (COPD): Yes Hx Emphysema: Yes - NEUROLOGICAL Hx Neurological Disorder: No - HEENT Hx HEENT Problems: No - RENAL Hx Chronic Kidney Disease: No - ENDOCRINE/METABOLIC Hx Endocrine Disorders: No - HEMATOLOGICAL/ONCOLOGICAL Hx Blood Disorders: No - INTEGUMENTARY Hx Dermatological Problems: No - MUSCULOSKELETAL/RHEUMATOLOGICAL Hx Arthritis: Yes (Gout) Hx Falls: No - GASTROINTESTINAL Hx Gastrointestinal Disorders: No - GENITOURINARY/GYNECOLOGICAL Hx Genitourinary Disorders: No - PSYCHIATRIC Hx Substance Use: No - SURGICAL HISTORY Hx Surgeries: Yes Other/Comment: PACEMAKER/DEFIBRILLATOR - ANESTHESIA Hx Anesthesia: Yes Hx Anesthesia Reactions: No Meds Allergies/Adverse Reactions: Allergies Allergy/AdvReac Type Severity Reaction Status Date / Time crab Allergy RASH Verified 05/19/18 21:46 - Medications Medications: Current Medications Albuterol/Ipratropium (Duoneb 3 Mg/0.5 Mg (3 Ml) Ud) 3 ml INH RQ4 [facility] Last Admin: 05/20/18 11:22 Dose: 3 ml Aspirin (Ecotrin) 81 mg PO DAILY [facility] Last Admin: 05/20/18 09:47 Dose: 81 mg Fluticasone/Vilanterol (Breo Ellipta 100-25 Mcg Inh) 1 puff INH DAILY [facility] Furosemide (Lasix) 40 mg IVP DAILY [facility] Last Admin: 05/20/18 09:45 Dose: 40 mg Guaifenesin (Mucinex La) 600 mg PO BID [facility] Stop: 05/23/18 10:01 Last Admin: 05/20/18 16:59 Dose: 600 mg Heparin Sodium/Sodium Chloride (Heparin 49973 Units/250ml 1/2 Normal Saline) 25,000 units in 250 mls @ 8.818 mls/hr IV .Q24H PRN; Protocol PRN Reason: ADJUST RATE PER PROTOCOL Last Admin: 05/20/18 09:47 Dose: 12 units/kg/hr, 8.818 mls/hr Lactobacillus Acidophilus (Bacid Acidophilus) 1 cap PO BID [facility] Stop: 05/23/18 10:01 Last Admin: 05/20/18 16:59 Dose: 1 cap Losartan Potassium (Cozaar) 25 mg PO DAILY [facility] Methylprednisolone (Solu-Medrol) 40 mg IV Q8 [facility] Last Admin: 05/20/18 13:25 Dose: 40 mg Metoprolol Tartrate (Lopressor) 25 mg PO Q6H [facility] Last Admin: 05/20/18 15:46 Dose: 25 mg Nicotine (Nicoderm Cq) 1 patch TD RQD [facility] Last Admin: 05/20/18 10:57 Dose: 1 patch Pantoprazole Sodium (Protonix Ec Tab) 40 mg PO DAILY [facility] Last Admin: 05/20/18 09:45 Dose: 40 mg Roflumilast (Daliresp) 500 mcg PO DAILY [facility] Last Admin: 05/20/18 10:56 Dose: 500 mcg Rosuvastatin Calcium (Crestor) 10 mg PO HS [facility] Tamsulosin HCl (Flomax) 0.4 mg PO DAILY [facility] Last Admin: 05/20/18 09:47 Dose: 0.4 mg Tiotropium [place] (Spiriva) 18 mcg INH RQ24 [facility] Last Admin: 05/20/18 11:22 Dose: 18 mcg Physical Exam - Head Exam Head Exam: ATRAUMATIC, NORMOCEPHALIC - ENT Exam ENT Exam: Mucous Membranes Moist - Neck Exam Neck exam: Positive for: Normal Inspection - Respiratory Exam Respiratory Exam: Rales - Cardiovascular Exam Cardiovascular Exam: REGULAR RHYTHM - GI/Abdominal Exam GI & Abdominal Exam: Normal Bowel Sounds, Soft Results - Vital Signs Recent Vital Signs: Last Vital Signs Temp 97.4 F L 05/20/18 17:20 Pulse 75 05/20/18 17:20 Resp 18 05/20/18 17:20 BP 119/86 05/20/18 17:20 Pulse Ox 96 05/20/18 17:20 - Labs Result Diagrams: 05/19/18 22:07 05/19/18 22:11 Labs: Laboratory Results - last 24 hr 05/19/18 05/19/18 05/19/18 22:00 22:07 22:07 WBC 7.6 RBC 4.28 L Hgb 14.2 Hct 42.6 MCV 99.4 H D MCH 33.2 H MCHC 33.3 RDW 15.5 H Plt Count 161 MPV 10.9 Neut % (Auto) 59.7 Lymph % (Auto) 14.[address] [place] % (Auto) 11.7 H Eos % (Auto) 13.4 H Baso % (Auto) 0.4 Neut # (Auto) 4.6 Lymph # (Auto) 1.1 [place] # (Auto) 0.9 H Eos # (Auto) 1.0 H Baso # (Auto) 0.0 PT 13.1 H INR 1.2 APTT 34 Puncture Site Rradial pCO2 43 pO2 285 H HCO3 25.0 ABG pH 7.38 ABG Total CO2 26.7 ABG O2 Saturation 100.0 H ABG Base Excess 0 [place]erson Test Pos ABG Potassium 3.9 A-a O2 Difference 18.0 Respiratory Index 0.1 Sodium 141.0 Chloride 111.0 H Glucose 145 H Lactate 1.0 Vent Mode Bipap FiO2 50.0 Inspiratory BiPAP 14 Expiratory BiPAP 8 Potassium Carbon Dioxide Anion Gap BUN Creatinine Est GFR ( Amer) Est GFR (Non-Af Amer) Random Glucose Calcium Total Bilirubin AST ALT Alkaline Phosphatase Troponin I NT-Pro-B Natriuret Pep Total Protein Albumin Globulin Albumin/Globulin Ratio Procalcitonin Arterial Blood Potassium 3.9 Urine Color Urine Clarity Urine pH Ur Specific [place] Urine Protein Urine Glucose (UA) Urine Ketones Urine Blood Urine Nitrate Urine Bilirubin Urine Urobilinogen Ur Leukocyte Esterase Urine WBC (Auto) Urine RBC (Auto) Ur Squamous Epith Cells Influenza Typ A,B (EIA) 05/19/18 05/19/18 05/20/18 22:07 22:11 01:32 WBC RBC Hgb Hct MCV MCH MCHC RDW Plt Count MPV Neut % (Auto) Lymph % (Auto) [place] % (Auto) Eos % (Auto) Baso % (Auto) Neut # (Auto) Lymph # (Auto) [place] # (Auto) Eos # (Auto) Baso # (Auto) PT INR APTT Puncture Site pCO2 pO2 HCO3 ABG pH ABG Total CO2 ABG O2 Saturation ABG Base Excess [place]erson Test ABG Potassium A-a O2 Difference Respiratory Index Sodium 141 Chloride 103 Glucose Lactate Vent Mode FiO2 Inspiratory BiPAP Expiratory BiPAP Potassium 4.6 Carbon Dioxide 26 Anion Gap 16 BUN 25 H Creatinine 1.6 H Est GFR ( Amer) 51 Est GFR (Non-Af Amer) 42 Random Glucose 124 H Calcium 8.9 Total Bilirubin 0.5 AST 45 ALT 30 Alkaline Phosphatase 81 Troponin I 0.0140 NT-Pro-B Natriuret Pep 5890 H Total Protein 8.1 Albumin 4.2 Globulin 3.9 Albumin/Globulin Ratio 1.1 Procalcitonin Arterial Blood Potassium Urine Color Straw Urine Clarity Clear Urine pH 6.0 Ur Specific [place] 1.006 Urine Protein Negative Urine Glucose (UA) Normal Urine Ketones Negative Urine Blood Negative Urine Nitrate Negative Urine Bilirubin Negative Urine Urobilinogen Normal Ur Leukocyte Esterase Neg Urine WBC (Auto) < 1 Urine RBC (Auto) 2 Ur Squamous Epith Cells < 1 Influenza Typ A,B (EIA) Negative for flu a/b 05/20/18 05/20/18 05/20/18 05:37 05:37 09:26 WBC RBC Hgb Hct MCV MCH MCHC RDW Plt Count MPV Neut % (Auto) Lymph % (Auto) [place] % (Auto) Eos % (Auto) Baso % (Auto) Neut # (Auto) Lymph # (Auto) [place] # (Auto) Eos # (Auto) Baso # (Auto) PT INR APTT 32 Puncture Site pCO2 pO2 HCO3 ABG pH ABG Total CO2 ABG O2 Saturation ABG Base Excess [place]erson Test ABG Potassium A-a O2 Difference Respiratory Index Sodium Chloride Glucose Lactate Vent Mode FiO2 Inspiratory BiPAP Expiratory BiPAP Potassium Carbon Dioxide Anion Gap BUN Creatinine Est GFR ( Amer) Est GFR (Non-Af Amer) Random Glucose Calcium Total Bilirubin AST ALT Alkaline Phosphatase Troponin I NT-Pro-B Natriuret Pep 5160 H Total Protein Albumin Globulin Albumin/Globulin Ratio Procalcitonin 0.07 L Arterial Blood Potassium Urine Color Urine Clarity Urine pH Ur Specific [place] Urine Protein Urine Glucose (UA) Urine Ketones Urine Blood Urine Nitrate Urine Bilirubin Urine Urobilinogen Ur Leukocyte Esterase Urine WBC (Auto) Urine RBC (Auto) Ur Squamous Epith Cells Influenza Typ A,B (EIA) Assessment & Plan (1) Respiratory failure Status: Acute Comment: continue BiPAP. Follow-up ABG. Nebulizer treatment, IV steroids. Antibiotics. IV diuretics (2) CHF (congestive heart failure) Status: Acute (3) COPD with exacerbation Status: Acute
--- NOTE | 2018-05-20 20:11 | CARD ---
APPROVED REPORT Date of service: 05/19/2018 EKG Measurement Heart [id number] <Conclusion> Atrial flutter with 4:1 AV conduction Left axis deviation Nonspecific intraventricular block Cannot rule out Septal infarct, age undetermined T wave abnormality, consider inferolateral ischemia Abnormal ECG
[2018-05-20] MEDS ORDERED: Home Med 1 UNIT (Simvastatin [Simvastatin] 40 MG) PO SCH (22:00)
[2018-05-21] MEDS: Albuterol-Ipratrop 3 mg / 0.5 (3 ml) UD INH SCH ×6 (00:51→19:50)
[2018-05-21] MEDS: MethylPREDNISolone 40 mg Vial IV SCH ×3 (05:25→21:16)
[2018-05-21 08:06] LABS: BASO # 0.1 K/uL (0.0-0.2); BASO % 0.4 % (0.0-2.0); HEMOGLOBIN 13.8 g/dL (12.0-18.0); LYMPH # 0.6 K/uL (1.0-4.3); LYMPH % 4.4 % (20.0-40.0); MEAN CELL VOLUME 99.1 fL (80.0-94.0); MEAN CORPUSCULAR HEMOGLOBIN 32.2 pg (27.0-31.0); MEAN CORPUSCULAR HGB CONC 32.5 g/dL (33.0-37.0); MONO # 0.5 K/uL (0.0-0.8); MONO % 4.3 % (0.0-10.0); NEUT # 11.5 K/uL (1.8-7.0); NEUT % 90.9 % (50.0-75.0); PLATELET COUNT 154 K/uL (130-400); RBC 4.28 Mil/uL (4.40-5.90); RED CELL DISTRIBUTION WIDTH 15.3 % (11.5-14.5); WHITE BLOOD COUNT 12.6 K/uL (4.8-10.8)
[2018-05-21 08:23] LABS: ALB/GLOB RATIO 1.1 (1.0-2.1); ALBUMIN 3.7 g/dL (3.5-5.0); CALCIUM 8.9 mg/dl (8.6-10.4)
--- NOTE | 2018-05-21 08:40 | CP.PCM.PN ---
Subjective - Date & Time of Evaluation Date of Evaluation: 05/21/18 Time of Evaluation: 08:35 - Subjective Subjective: Medicine Note for Dr. Jim Issa's Service Patient was seen and examined at bedside. Patient reports his breathing has improved significantly since yesterday, however he still feels dependant on the O2 via [place]. Denied fever, chills, chest pain, abdominal pain, n/v/d/c, or urinary symptoms. Objective - Vital Signs/Intake and Output Vital Signs (last 24 hours): Temp Pulse Resp BP Pulse Ox 97.3 F L 88 20 122/92 H 100 05/21/18 08:04 05/21/18 08:04 05/21/18 08:04 05/21/18 08:04 05/21/18 08:04 Intake and Output: 05/21/18 05/21/18 06:59 18:59 Intake Total 268.8 Balance 268.8 - Medications Medications: Current Medications Albuterol/Ipratropium (Duoneb 3 Mg/0.5 Mg (3 Ml) Ud) 3 ml INH RQ4 [facility] Last Admin: 05/21/18 03:51 Dose: Not Given Aspirin (Ecotrin) 81 mg PO DAILY [facility] Last Admin: 05/20/18 09:47 Dose: 81 mg Fluticasone/Vilanterol (Breo Ellipta 100-25 Mcg Inh) 1 puff INH RQ24 [facility] Furosemide (Lasix) 40 mg IVP DAILY [facility] Last Admin: 05/20/18 09:45 Dose: 40 mg Guaifenesin (Mucinex La) 600 mg PO BID [facility] Stop: 05/23/18 10:01 Last Admin: 05/20/18 16:59 Dose: 600 mg Heparin Sodium/Sodium Chloride (Heparin 04871 Units/250ml 1/2 Normal Saline) 25,000 units in 250 mls @ 8.818 mls/hr IV .Q24H PRN; Protocol PRN Reason: ADJUST RATE PER PROTOCOL Last Admin: 05/20/18 19:55 Dose: 12 units/kg/hr, 8.818 mls/hr Lactobacillus Acidophilus (Bacid Acidophilus) 1 cap PO BID [facility] Stop: 05/23/18 10:01 Last Admin: 05/20/18 16:59 Dose: 1 cap Losartan Potassium (Cozaar) 25 mg PO DAILY [facility] Methylprednisolone (Solu-Medrol) 40 mg IV Q8 [facility] Last Admin: 05/21/18 05:25 Dose: 40 mg Metoprolol Tartrate (Lopressor) 25 mg PO Q6H [facility] Last Admin: 05/21/18 04:43 Dose: Not Given Nicotine (Nicoderm Cq) 1 patch TD RQD [facility] Last Admin: 05/20/18 10:57 Dose: 1 patch Pantoprazole Sodium (Protonix Ec Tab) 40 mg PO DAILY [facility] Last Admin: 05/20/18 09:45 Dose: 40 mg Roflumilast (Daliresp) 500 mcg PO DAILY [facility] Last Admin: 05/20/18 10:56 Dose: 500 mcg Rosuvastatin Calcium (Crestor) 10 mg PO HS [facility] Last Admin: 05/20/18 21:44 Dose: 10 mg Tamsulosin HCl (Flomax) 0.4 mg PO DAILY [facility] Last Admin: 05/20/18 09:47 Dose: 0.4 mg Tiotropium [place] (Spiriva) 18 mcg INH RQ24 [facility] Last Admin: 05/20/18 11:22 Dose: 18 mcg - Labs Labs: 05/21/18 07:52 05/21/18 07:52 PT 13.1 SECONDS (9.7-12.2) H 05/19/18 22:07 INR 1.2 05/19/18 22:07 APTT 84 SECONDS (21-34) H 05/21/18 01:55 - Additional Findings Additional findings: - Constitutional Appears: No Acute Distress - Head Exam Head Exam: NORMAL INSPECTION, NORMOCEPHALIC - Eye Exam Eye Exam: EOMI, Normal appearance, PERRL Pupil Exam: NORMAL ACCOMODATION - ENT Exam ENT Exam: Mucous Membranes Moist Additional comments: poor dentition - Neck Exam Neck Exam: absent: Lymphadenopathy, Tenderness, Thyromegaly - Respiratory Exam Respiratory Exam: Decreased Breath Sounds, Wheezes - Cardiovascular Exam Cardiovascular Exam: Irregular Rhythm Additional comments: atrial flutter on telemetry and EKG - GI/Abdominal Exam GI & Abdominal Exam: Soft, Normal Bowel Sounds. absent: Distended, Tenderness - Extremities Exam Extremities Exam: Normal Inspection. absent: Pedal Edema, Tenderness - Neurological Exam Neurological Exam: Alert, Awake, Oriented x3 - Psychiatric Exam Psychiatric exam: Normal Affect, Normal Mood - Skin Skin Exam: Dry, Intact, Normal Color, Warm Assessment and Plan - Assessment and Plan (Free Text) Plan: COPD Exacerbation - Pulmonology consulted, Dr. Wilkerson (patient's personal Refrigeration Engine Operator) Management: - Started Duonebs Q4, Breo Ellipta, Solumedrol 40mg Q8H (will titrate base on clinical improvement), Daliresp daily, Spiriva, Mucinex x 3 days - CXR: no infiltrates or effusions noted, Procal low, negative flu, normal lactate level will DC antibiotics - BiPAP as needed New Onset Atrial Flutter - Cardiology Consulted : Dr. Ma, help appreciated Management: - CHADsVASC score of 4 - Started on Heparin Drip, Metoprolol 25mg PO Q6H - No prior history of atrial flutter/fibrillation, requested medical records from Dr. Trammell (Senior Program Analyst) - Will transition to DOAC Hypertension - Called patient's pharmacy, currently not on mainor/arb was on valsartan last refilled in 02/2018 - ASA daily, will start Losartan 25mg PO daily Hyperlipidemia - Resumed statin therapy AYANNA on CKD - Continue to monitor BPH - Continue Flomax Tobacco Use Disorder - Nicotine patch daily Systolic Heart Failure with AICD (2010) Non-ischemic Cardiomyopathy s/p cath in 2010 (nonobstructive coronaries) Prostate Cancer (diagnosed 11/2017) On radiation (started 12/2017) Prophylactic Measures - GI PPX: Protonix 40mg daily - DVT PPX: SCDs, heparin drip - PT eval for possible home o2 Disposition: Will continue IV steroids and taper pending clinical improvement; will have PT access if home O2 is needed for this patient. Will need to transition to Eliquis for new onset atrial flutter. All medical management as per Dr. Jim Issa, Candida Belle DO, PGY2
[2018-05-21 08:49] LABS: BANDS 2 % (0-2); LYMPHOCYTE 3 % (20-40); MONOCYTE 3 % (0-10); NEUTROPHIL 92 % (50-75); PLATELET ESTIMATE NORMAL (NORMAL); TOTAL CELLS COUNTED 100
[2018-05-21 08:50] LABS: LARGE PLATELETS PRESENT
[2018-05-21] MEDS: Fluticasone-Vilanterol 100/25mcg Diskus INH SCH (10:28)
[2018-05-21] MEDS: guaiFENesin 600 mg ER Tab PO SCH ×2 (10:28→17:34)
[2018-05-21] MEDS: Lactobacillus Acidophilus 500 MU Cap PO SCH ×2 (10:28→17:34)
[2018-05-21] MEDS: Pantoprazole 40 mg EC Tab PO SCH (10:29)
[2018-05-21] MEDS: Tiotropium 18 mcg Cap For Inhalation INH SCH (10:49)
--- NOTE | 2018-05-21 14:59 | CP.PCM.PN ---
Subjective - Date & Time of Evaluation Date of Evaluation: 05/21/18 Time of Evaluation: 12:00 - Subjective Subjective: 77 year old male Reports became short of breath while walking earlier but overall feels better. Is using BiPAP. Denied fever, chest pain. CXR 05/19 no infiltrates or effusions, mild pulmonary venous congestion Blood culture and MRSA screening negative, Flu negative normal lactate, antibiotics discontinued Objective - Vital Signs/Intake and Output Vital Signs (last 24 hours): Temp Pulse Resp BP Pulse Ox 97.3 F L 88 20 121/86 100 05/21/18 08:04 05/21/18 08:04 05/21/18 08:04 05/21/18 10:34 05/21/18 08:04 Intake and Output: 05/21/18 05/21/18 06:59 18:59 Intake Total 268.8 Balance 268.8 - Medications Medications: Current Medications Albuterol/Ipratropium (Duoneb 3 Mg/0.5 Mg (3 Ml) Ud) 3 ml INH RQ4 [facility] Last Admin: 05/21/18 10:59 Dose: 3 ml Aspirin (Ecotrin) 81 mg PO DAILY [facility] Last Admin: 05/21/18 10:28 Dose: 81 mg Fluticasone/Vilanterol (Breo Ellipta 100-25 Mcg Inh) 1 puff INH RQ24 [facility] Last Admin: 05/21/18 10:28 Dose: 1 puff Furosemide (Lasix) 40 mg IVP DAILY [facility] Last Admin: 05/21/18 10:26 Dose: 40 mg Guaifenesin (Mucinex La) 600 mg PO BID [facility] Stop: 05/23/18 10:01 Last Admin: 05/21/18 10:28 Dose: 600 mg Heparin Sodium/Sodium Chloride (Heparin 22027 Units/250ml 1/2 Normal Saline) 25,000 units in 250 mls @ 8.818 mls/hr IV .Q24H PRN; Protocol PRN Reason: ADJUST RATE PER PROTOCOL Last Admin: 05/20/18 19:55 Dose: 12 units/kg/hr, 8.818 mls/hr Lactobacillus Acidophilus (Bacid Acidophilus) 1 cap PO BID [facility] Stop: 05/23/18 10:01 Last Admin: 05/21/18 10:28 Dose: 1 cap Losartan Potassium (Cozaar) 25 mg PO DAILY [facility] Last Admin: 05/21/18 10:28 Dose: 25 mg Methylprednisolone (Solu-Medrol) 40 mg IV Q8 [facility] Last Admin: 05/21/18 14:22 Dose: 40 mg Metoprolol Tartrate (Lopressor) 25 mg PO Q6H [facility] Last Admin: 05/21/18 10:34 Dose: 25 mg Nicotine (Nicoderm Cq) 1 patch TD RQD [facility] Last Admin: 05/21/18 10:29 Dose: 1 patch Pantoprazole Sodium (Protonix Ec Tab) 40 mg PO DAILY [facility] Last Admin: 05/21/18 10:29 Dose: 40 mg Roflumilast (Daliresp) 500 mcg PO DAILY [facility] Last Admin: 05/21/18 10:28 Dose: 500 mcg Rosuvastatin Calcium (Crestor) 10 mg PO HS [facility] Last Admin: 05/20/18 21:44 Dose: 10 mg Tamsulosin HCl (Flomax) 0.4 mg PO DAILY [facility] Last Admin: 05/21/18 10:34 Dose: 0.4 mg Tiotropium [place] (Spiriva) 18 mcg INH RQ24 [facility] Last Admin: 05/21/18 10:49 Dose: 18 mcg - Labs Labs: 05/21/18 07:52 05/21/18 07:52 PT 13.1 SECONDS (9.7-12.2) H 05/19/18 22:07 INR 1.2 05/19/18 22:07 APTT 84 SECONDS (21-34) H 05/21/18 01:55 - Head Exam Head Exam: ATRAUMATIC, NORMOCEPHALIC - ENT Exam ENT Exam: Mucous Membranes Moist - Neck Exam Neck Exam: Normal Inspection - Respiratory Exam Respiratory Exam: Decreased Breath Sounds - Cardiovascular Exam Cardiovascular Exam: REGULAR RHYTHM - GI/Abdominal Exam GI & Abdominal Exam: Soft, Normal Bowel Sounds - Extremities Exam Extremities Exam: Normal Inspection Assessment and Plan (1) Respiratory failure Assessment & Plan: Continue BiPAP Steroids and nebulizer treatment Follow-up ABG Patient is off antibiotics Physical therapy Status: Acute (2) COPD with exacerbation Status: Acute (3) CHF (congestive heart failure) Status: Acute
[2018-05-21] MEDS: Heparin25000 units/250ml 1/2NS 25,000 UNITS/250 ML BAG IV PRN (16:51)
--- NOTE | 2018-05-21 17:11 | CP.PCM.PN ---
Subjective - Date & Time of Evaluation Date of Evaluation: 05/21/18 Time of Evaluation: 17:11 - Subjective Subjective: Events reviewed Objective - Vital Signs/Intake and Output Vital Signs (last 24 hours): Temp Pulse Resp BP Pulse Ox 97.8 F 72 18 118/84 98 05/21/18 15:00 05/21/18 15:57 05/21/18 15:00 05/21/18 16:48 05/21/18 15:00 Intake and Output: 05/21/18 05/21/18 06:59 18:59 Intake Total 268.8 670 Output Total 600 Balance 268.8 70 - Medications Medications: Current Medications Albuterol/Ipratropium (Duoneb 3 Mg/0.5 Mg (3 Ml) Ud) 3 ml INH RQ4 [facility] Last Admin: 05/21/18 16:13 Dose: 3 ml Aspirin (Ecotrin) 81 mg PO DAILY [facility] Last Admin: 05/21/18 10:28 Dose: 81 mg Fluticasone/Vilanterol (Breo Ellipta 100-25 Mcg Inh) 1 puff INH RQ24 [facility] Last Admin: 05/21/18 10:28 Dose: 1 puff Furosemide (Lasix) 40 mg IVP DAILY [facility] Last Admin: 05/21/18 10:26 Dose: 40 mg Guaifenesin (Mucinex La) 600 mg PO BID [facility] Stop: 05/23/18 10:01 Last Admin: 05/21/18 10:28 Dose: 600 mg Heparin Sodium/Sodium Chloride (Heparin 12640 Units/250ml 1/2 Normal Saline) 25,000 units in 250 mls @ 8.818 mls/hr IV .Q24H PRN; Protocol PRN Reason: ADJUST RATE PER PROTOCOL Last Admin: 05/21/18 16:51 Dose: 12 units/kg/hr, 8.818 mls/hr Lactobacillus Acidophilus (Bacid Acidophilus) 1 cap PO BID [facility] Stop: 05/23/18 10:01 Last Admin: 05/21/18 10:28 Dose: 1 cap Losartan Potassium (Cozaar) 25 mg PO DAILY [facility] Last Admin: 05/21/18 10:28 Dose: 25 mg Methylprednisolone (Solu-Medrol) 40 mg IV Q8 [facility] Last Admin: 05/21/18 14:22 Dose: 40 mg Metoprolol Tartrate (Lopressor) 25 mg PO Q6H [facility] Last Admin: 05/21/18 16:48 Dose: 25 mg Nicotine (Nicoderm Cq) 1 patch TD RQD [facility] Last Admin: 05/21/18 10:29 Dose: 1 patch Pantoprazole Sodium (Protonix Ec Tab) 40 mg PO DAILY [facility] Last Admin: 05/21/18 10:29 Dose: 40 mg Roflumilast (Daliresp) 500 mcg PO DAILY [facility] Last Admin: 05/21/18 10:28 Dose: 500 mcg Rosuvastatin Calcium (Crestor) 10 mg PO HS [facility] Last Admin: 05/20/18 21:44 Dose: 10 mg Tamsulosin HCl (Flomax) 0.4 mg PO DAILY [facility] Last Admin: 05/21/18 10:34 Dose: 0.4 mg Tiotropium [place] (Spiriva) 18 mcg INH RQ24 [facility] Last Admin: 05/21/18 10:49 Dose: 18 mcg - Labs Labs: 05/21/18 07:52 05/21/18 07:52 PT 13.1 SECONDS (9.7-12.2) H 05/19/18 22:07 INR 1.2 05/19/18 22:07 APTT 84 SECONDS (21-34) H 05/21/18 01:55 Assessment and Plan - Assessment and Plan (Free Text) Assessment: Physical Exam - Constitutional Appears: Older Than Stated Age - Head Exam Head Exam: ATRAUMATIC, NORMAL INSPECTION, NORMOCEPHALIC - Eye Exam Eye Exam: EOMI, Normal appearance. absent: Scleral icterus - ENT Exam ENT Exam: Mucous Membranes Moist, Normal Oropharynx - Neck Exam Neck exam: Positive for: Normal Inspection - Respiratory Exam Respiratory Exam: Rhonchi, NORMAL BREATHING PATTERN. absent: Rales, Respiratory Distress - Cardiovascular Exam Cardiovascular Exam: REGULAR RHYTHM, +S1, +S2. absent: Systolic Murmur - GI/Abdominal Exam GI & Abdominal Exam: Normal Bowel Sounds, Soft. absent: Pulsatile Mass, Rebound, Tenderness - Extremities Exam Extremities exam: Positive for: pedal pulses present. Negative for: calf tenderness, pedal edema - Neurological Exam Neurological exam: Alert, CN II-XII Intact, Oriented x3 - Psychiatric Exam Psychiatric exam: Normal Affect, Normal Mood - Skin Skin Exam: Dry, Normal Color, Warm - EKG Data EKG Interpreted by: Myself - Imaging and Cardiology Chest x-ray Status: Image reviewed by me Assessment & Plan - Assessment and Plan (Free Text) Assessment: 77-year-old with chronic COPD [id number] with chronic COPD emphysema history of heavy smoking AICD placement history of severe systolic dysfunction meanwhile patient has a Chadsvasc score of at least 4.... justifying use of anticoagulation....Heparin can be used initially with suggestion of conversion to an oral DOAC, IE ELIQUIS. continue optimal therapy for heart failure including change to a long acting beta xuan such as car carvedilol, ARB, lasix, .... Entresto should be considered as an outpatient, as well as need to restore rhythm to NSR as outpatient with his oven equipment repairer. .... Rate is controlled for now .... continue Rx and supportive care for COPD
--- NOTE | 2018-05-21 21:00 | CP.PCM.PN ---
Subjective - Date & Time of Evaluation Date of Evaluation: 05/21/18 Time of Evaluation: 08:45 - Subjective Subjective: clinically same Objective - Vital Signs/Intake and Output Vital Signs (last 24 hours): Temp Pulse Resp BP Pulse Ox 97.8 F 75 18 118/84 98 05/21/18 15:00 05/21/18 19:53 05/21/18 15:00 05/21/18 16:48 05/21/18 15:00 Intake and Output: 05/21/18 05/22/18 18:59 06:59 Intake Total 670 Output Total 600 Balance 70 - Medications Medications: Current Medications Albuterol/Ipratropium (Duoneb 3 Mg/0.5 Mg (3 Ml) Ud) 3 ml INH RQ4 [facility] Last Admin: 05/21/18 19:50 Dose: 3 ml Aspirin (Ecotrin) 81 mg PO DAILY [facility] Last Admin: 05/21/18 10:28 Dose: 81 mg Fluticasone/Vilanterol (Breo Ellipta 100-25 Mcg Inh) 1 puff INH RQ24 [facility] Last Admin: 05/21/18 10:28 Dose: 1 puff Furosemide (Lasix) 40 mg IVP DAILY [facility] Last Admin: 05/21/18 10:26 Dose: 40 mg Guaifenesin (Mucinex La) 600 mg PO BID [facility] Stop: 05/23/18 10:01 Last Admin: 05/21/18 17:34 Dose: 600 mg Heparin Sodium/Sodium Chloride (Heparin 09244 Units/250ml 1/2 Normal Saline) 25,000 units in 250 mls @ 8.818 mls/hr IV .Q24H PRN; Protocol PRN Reason: ADJUST RATE PER PROTOCOL Last Admin: 05/21/18 16:51 Dose: 12 units/kg/hr, 8.818 mls/hr Lactobacillus Acidophilus (Bacid Acidophilus) 1 cap PO BID [facility] Stop: 05/23/18 10:01 Last Admin: 05/21/18 17:34 Dose: 1 cap Losartan Potassium (Cozaar) 25 mg PO DAILY [facility] Last Admin: 05/21/18 10:28 Dose: 25 mg Methylprednisolone (Solu-Medrol) 40 mg IV Q8 [facility] Last Admin: 05/21/18 14:22 Dose: 40 mg Metoprolol Tartrate (Lopressor) 25 mg PO Q6H [facility] Last Admin: 12/19/18 16:48 Dose: 25 mg Nicotine (Nicoderm Cq) 1 patch TD RQD [facility] Last Admin: 05/21/18 10:29 Dose: 1 patch Pantoprazole Sodium (Protonix Ec Tab) 40 mg PO DAILY [facility] Last Admin: 05/21/18 10:29 Dose: 40 mg Roflumilast (Daliresp) 500 mcg PO DAILY [facility] Last Admin: 05/21/18 10:28 Dose: 500 mcg Rosuvastatin Calcium (Crestor) 10 mg PO HS [facility] Last Admin: 05/20/18 21:44 Dose: 10 mg Tamsulosin HCl (Flomax) 0.4 mg PO DAILY [facility] Last Admin: 05/21/18 10:34 Dose: 0.4 mg Tiotropium [place] (Spiriva) 18 mcg INH RQ24 [facility] Last Admin: 05/21/18 10:49 Dose: 18 mcg - Labs Labs: 05/21/18 07:52 05/21/18 07:52 PT 13.1 SECONDS (9.7-12.2) H 05/19/18 22:07 INR 1.2 05/19/18 22:07 APTT 84 SECONDS (21-34) H 05/21/18 01:55 - Constitutional Appears: Well - Head Exam Head Exam: ATRAUMATIC, NORMAL INSPECTION, NORMOCEPHALIC - Eye Exam Eye Exam: EOMI, Normal appearance, PERRL Pupil Exam: NORMAL ACCOMODATION, PERRL - ENT Exam ENT Exam: Mucous Membranes Moist, Normal Exam - Neck Exam Neck Exam: Full ROM, Normal Inspection. absent: Lymphadenopathy - Respiratory Exam Respiratory Exam: Decreased Breath Sounds - Cardiovascular Exam Cardiovascular Exam: REGULAR RHYTHM, +S1, +S2 - GI/Abdominal Exam GI & Abdominal Exam: Soft, Diminished Bowel Sounds - Rectal Exam Rectal Exam: Deferred
[2018-05-22] MEDS: Albuterol-Ipratrop 3 mg / 0.5 (3 ml) UD INH SCH ×4 (00:35→11:00)
[2018-05-22] MEDS: MethylPREDNISolone 40 mg Vial IV SCH ×3 (05:50→21:18)
[2018-05-22 06:50] LABS: BASO % 0.1 % (0.0-2.0); HEMOGLOBIN 13.5 g/dL (12.0-18.0); LYMPH # 0.4 K/uL (1.0-4.3); LYMPH % 2.6 % (20.0-40.0); MEAN CELL VOLUME 99.1 fL (80.0-94.0); MEAN CORPUSCULAR HEMOGLOBIN 32.7 pg (27.0-31.0); MEAN PLATELET VOLUME 10.9 fL (7.2-11.7); MONO # 0.7 K/uL (0.0-0.8); NEUT # 12.4 K/uL (1.8-7.0); NEUT % 92.3 % (50.0-75.0); PLATELET COUNT 162 K/uL (130-400); RBC 4.13 Mil/uL (4.40-5.90); RED CELL DISTRIBUTION WIDTH 15.7 % (11.5-14.5); WHITE BLOOD COUNT 13.4 K/uL (4.8-10.8)
[2018-05-22 07:04] LABS: ALB/GLOB RATIO 1.1 (1.0-2.1); ALBUMIN 3.6 g/dL (3.5-5.0); CALCIUM 8.6 mg/dl (8.6-10.4)
--- NOTE | 2018-05-22 07:07 | CP.PCM.PN ---
Subjective - Date & Time of Evaluation Date of Evaluation: 05/22/18 Time of Evaluation: 07:06 - Subjective Subjective: Medicine Progress Note - Dr Tana Issa's Service Patient seen and examined at bedside. Per nursing no acute events overnight. Patient sitting up in bed eating breakfast. Patient reports shortness of breath has improved. Denies headaches, dizziness, cp, palpitations, abdominal pain, urinary symptoms, changes in bowel habits. Objective - Vital Signs/Intake and Output Vital Signs (last 24 hours): Temp Pulse Resp BP Pulse Ox 97.5 F L 71 20 121/89 97 05/21/18 23:20 05/22/18 04:01 05/21/18 23:20 05/22/18 05:50 05/21/18 23:20 Intake and Output: 05/22/18 05/22/18 06:59 18:59 Intake Total 364 Balance 364 - Medications Medications: Current Medications Albuterol/Ipratropium (Duoneb 3 Mg/0.5 Mg (3 Ml) Ud) 3 ml INH RQ4 [facility] Last Admin: 05/22/18 04:01 Dose: 3 ml Aspirin (Ecotrin) 81 mg PO DAILY [facility] Last Admin: 05/21/18 10:28 Dose: 81 mg Fluticasone/Vilanterol (Breo Ellipta 100-25 Mcg Inh) 1 puff INH RQ24 [facility] Last Admin: 05/21/18 10:28 Dose: 1 puff Furosemide (Lasix) 40 mg IVP DAILY [facility] Last Admin: 05/21/18 10:26 Dose: 40 mg Guaifenesin (Mucinex La) 600 mg PO BID [facility] Stop: 05/23/18 10:01 Last Admin: 05/21/18 17:34 Dose: 600 mg Heparin Sodium/Sodium Chloride (Heparin 62832 Units/250ml 1/2 Normal Saline) 25,000 units in 250 mls @ 8.818 mls/hr IV .Q24H PRN; Protocol PRN Reason: ADJUST RATE PER PROTOCOL Last Admin: 05/21/18 16:51 Dose: 12 units/kg/hr, 8.818 mls/hr Lactobacillus Acidophilus (Bacid Acidophilus) 1 cap PO BID [facility] Stop: 05/23/18 10:01 Last Admin: 05/21/18 17:34 Dose: 1 cap Losartan Potassium (Cozaar) 25 mg PO DAILY [facility] Last Admin: 12/19/18 10:28 Dose: 25 mg Methylprednisolone (Solu-Medrol) 40 mg IV Q8 [facility] Last Admin: 05/22/18 05:50 Dose: 40 mg Metoprolol Tartrate (Lopressor) 25 mg PO Q6H [facility] Last Admin: 05/22/18 05:50 Dose: 25 mg Nicotine (Nicoderm Cq) 1 patch TD RQD [facility] Last Admin: 05/21/18 10:29 Dose: 1 patch Pantoprazole Sodium (Protonix Ec Tab) 40 mg PO DAILY [facility] Last Admin: 05/21/18 10:29 Dose: 40 mg Roflumilast (Daliresp) 500 mcg PO DAILY [facility] Last Admin: 05/21/18 10:28 Dose: 500 mcg Rosuvastatin Calcium (Crestor) 10 mg PO HS [facility] Last Admin: 05/21/18 21:16 Dose: 10 mg Tamsulosin HCl (Flomax) 0.4 mg PO DAILY [facility] Last Admin: 05/21/18 10:34 Dose: 0.4 mg Tiotropium [place] (Spiriva) 18 mcg INH RQ24 [facility] Last Admin: 05/21/18 10:49 Dose: 18 mcg - Labs Labs: 05/22/18 06:42 05/22/18 06:42 PT 13.1 SECONDS (9.7-12.2) H 05/19/18 22:07 INR 1.2 05/19/18 22:07 APTT 79 SECONDS (21-34) H D 05/22/18 02:40 - Constitutional Appears: Non-toxic, No Acute Distress - Head Exam Head Exam: ATRAUMATIC, NORMAL INSPECTION, NORMOCEPHALIC - Eye Exam Eye Exam: EOMI, Normal appearance - ENT Exam ENT Exam: Mucous Membranes Moist - Respiratory Exam Respiratory Exam: Decreased Breath Sounds, Wheezes, NORMAL BREATHING PATTERN. absent: Rales, Rhonchi - Cardiovascular Exam Cardiovascular Exam: REGULAR RHYTHM, +S1, +S2 - GI/Abdominal Exam GI & Abdominal Exam: Soft. absent: Guarding, Rigid, Tenderness - Extremities Exam Extremities Exam: Normal Inspection. absent: Calf Tenderness - Neurological Exam Neurological Exam: Alert, Awake, Oriented x3 - Psychiatric Exam Psychiatric exam: Normal Affect, Normal Mood - Skin Skin Exam: Normal Color, Warm Assessment and Plan - Assessment and Plan (Free Text) Assessment: COPD Exacerbation - Pulmonology consulted, Dr. Wilkerson (patient's personal Rig Builder) Management: - Continue Duonebs Q4, Breo Ellipta, Solumedrol 40mg Q8H (will titrate base on clinical improvement), Daliresp daily, Spiriva, Mucinex x 3 days - CXR: no infiltrates or effusions noted, Procal low, negative flu, normal lactate level will DC antibiotics - Continue BiPAP as needed New Onset Atrial Flutter - Cardiology Consulted : Dr. Ma, help appreciated Management: - CHADsVASC score of 4 - Started on Heparin Drip, Metoprolol 25mg PO Q6H - No prior history of atrial flutter/fibrillation, requested medical records fro m Dr. Trammell ([place]) - Will need to discuss with Cardiology which oral anticoagulant to start Hypertension - Called patient's pharmacy, currently not on mainor/arb was on valsartan last refilled in 02/2018 - ASA daily, started Losartan 25mg PO daily Hyperlipidemia - Continue crestor 10mg PO HS AYANNA on CKD - Continue to monitor - Renally dose all medications BPH - Continue Flomax Tobacco Use Disorder - Nicotine patch daily Systolic Heart Failure with AICD (2010) Non-ischemic Cardiomyopathy s/p cath in 2010 (nonobstructive coronaries) - On Lasix 40mg IVP daily Prostate Cancer (diagnosed 11/2017) On radiation (started 12/2017) Prophylactic Measures - GI PPX: Protonix 40mg daily - DVT PPX: SCDs, heparin drip - PT eval for possible home o2 Disposition: Will continue IV steroids and taper pending clinical improvement; will have PT access if home O2 is needed for this patient. Will need to transition to Eliquis for new onset atrial flutter. Plan discussed with Dr Luis Manuel Poon DO PGY-2
[2018-05-22 08:52] LABS: LYMPHOCYTE 2 % (20-40); MONOCYTE 4 % (0-10); NEUTROPHIL 94 % (50-75); PLATELET ESTIMATE NORMAL (NORMAL); TOTAL CELLS COUNTED 100
[2018-05-22] MEDS: Pantoprazole 40 mg EC Tab PO SCH (09:48)
[2018-05-22] MEDS: guaiFENesin 600 mg ER Tab PO SCH ×2 (09:48→17:03)
[2018-05-22] MEDS: Lactobacillus Acidophilus 500 MU Cap PO SCH ×2 (09:49→17:03)
--- NOTE | 2018-05-22 09:59 | PQF ---
PROVIDER RESPONSE TEXT: Acute on Chronic Systolic CHF REVIEWER QUERY TEXT: CHF Acuity and Type Congestive Heart Failure is documented in the Medical Record. Please document the type and acuity (in cludes probable or suspected) Such as: Also please document the underlying cause of the CHF (includes probable or suspected) The patient's Clinical Indicators include: ?77 year old male with PMHx of COPD presents to the ED for evaluation of acute respiratory distress. Patient speaking in 102 word sentences. Patient states he smoked 3 weeks ago?. BNP: 5890 - . EKG: Atrial flutter with 4:1 AV conduction. Left axis deviation. Nonspecific intraventricular block. Canno t rule out Septal infarct, age undetermined. T wave abnormality, consider inferolateral ischemia. CXR: Cardiomegaly and mild pulmonary venous congestion-similar. ECHO on 09/03/2016: The Left Ventricle is moderately dilated. Left ventricle systolic function is severely impaired. The Ejection Fraction is 25-30%.The left ventricular diastolic function is normal. The right ventricle is normal size. The right ventricular systolic function is normal. The left atrium is moderately dilate d. The right atrium size is normal. There is mild aortic regurgitation. Mitral regurgitation is moder ate. There is mild to moderate tricuspid regurgitation. Rx: Furosemide 40mg IVP DAILY Clinical finding related with Acute on chronic systolic CHF, Please consider verify and document your consideration, if agree. Query created by: José Miguel Valentine on 05/21/2018 11:50 AM Electronically signed by: Candida Belle 05/22/2018 9:56 AM
[2018-05-22] MEDS ORDERED: Influenza Vaccine 60 MCG/0.5 ML SYR (3 yr & up) IM ONE (10:00)
[2018-05-22] MEDS: Fluticasone-Vilanterol 100/25mcg Diskus INH SCH (11:00)
[2018-05-22] MEDS: Tiotropium 18 mcg Cap For Inhalation INH SCH (11:01)
--- NOTE | 2018-05-22 17:38 | CP.PCM.PN ---
Subjective - Date & Time of Evaluation Date of Evaluation: 05/22/18 Time of Evaluation: 11:55 - Subjective Subjective: 77 year old male with PMH of COPD consulted for COPD exacerbation with emphysema. Is using BiPAP. +SOB. Denied fever, chest pain. Patient seen and examined at bedside, lying down comfortably. Afebrile and in no acute distress. Wheezing bilaterally. CXR 05/19 no infiltrates or effusions, mild pulmonary venous congestion Blood culture 05/19 and MRSA 05/20 screening negative, Flu negative normal lactate, antibiotics discontinued. ABG 05/19: pCO2 43, pO2 285 H, HCO3 25, pH 7.38, [place] 111 H, Glucose 145 H Continue duonebs, and steroids. Continue Bipap as needed. Objective - Vital Signs/Intake and Output Vital Signs (last 24 hours): Temp Pulse Resp BP Pulse Ox 97.7 F 82 18 121/80 96 05/22/18 15:00 05/22/18 16:29 05/22/18 15:00 05/22/18 15:46 05/22/18 15:00 Intake and Output: 05/22/18 05/22/18 06:59 18:59 Intake Total 364 420.4 Output Total 800 Balance 364 -379.6 - Medications Medications: Current Medications Albuterol/Ipratropium (Duoneb 3 Mg/0.5 Mg (3 Ml) Ud) 3 ml INH RQ4 [facility] Last Admin: 05/22/18 11:00 Dose: 3 ml Aspirin (Ecotrin) 81 mg PO DAILY [facility] Last Admin: 05/22/18 09:48 Dose: 81 mg Fluticasone/Vilanterol (Breo Ellipta 100-25 Mcg Inh) 1 puff INH RQ24 [facility] Last Admin: 05/22/18 11:00 Dose: 1 puff Furosemide (Lasix) 40 mg IVP DAILY [facility] Last Admin: 05/22/18 09:49 Dose: 40 mg Guaifenesin (Mucinex La) 600 mg PO BID [facility] Stop: 05/23/18 10:01 Last Admin: 05/22/18 17:03 Dose: 600 mg Heparin Sodium/Sodium Chloride (Heparin 66619 Units/250ml 1/2 Normal Saline) 25,000 units in 250 mls @ 8.818 mls/hr IV .Q24H PRN; Protocol PRN Reason: ADJUST RATE PER PROTOCOL Last Admin: 05/21/18 16:51 Dose: 12 units/kg/hr, 8.818 mls/hr Lactobacillus Acidophilus (Bacid Acidophilus) 1 cap PO BID [facility] Stop: 05/23/18 10:01 Last Admin: 05/22/18 17:03 Dose: 1 cap Losartan Potassium (Cozaar) 25 mg PO DAILY [facility] Last Admin: 05/22/18 09:48 Dose: 25 mg Methylprednisolone (Solu-Medrol) 40 mg IV Q8 [facility] Last Admin: 05/22/18 13:42 Dose: 40 mg Metoprolol Tartrate (Lopressor) 25 mg PO Q6H [facility] Last Admin: 05/22/18 15:46 Dose: 25 mg Nicotine (Nicoderm Cq) 1 patch TD RQD [facility] Last Admin: 05/22/18 09:00 Dose: 1 patch Pantoprazole Sodium (Protonix Ec Tab) 40 mg PO DAILY [facility] Last Admin: 05/22/18 09:48 Dose: 40 mg Roflumilast (Daliresp) 500 mcg PO DAILY [facility] Last Admin: 05/22/18 09:48 Dose: 500 mcg Rosuvastatin Calcium (Crestor) 10 mg PO HS [facility] Last Admin: 05/21/18 21:16 Dose: 10 mg Tamsulosin HCl (Flomax) 0.4 mg PO DAILY [facility] Last Admin: 05/22/18 09:48 Dose: 0.4 mg Tiotropium [place] (Spiriva) 18 mcg INH RQ24 [facility] Last Admin: 05/22/18 11:01 Dose: 18 mcg - Labs Labs: 05/22/18 06:42 05/22/18 06:42 PT 13.1 SECONDS (9.7-12.2) H 05/19/18 22:07 INR 1.2 05/19/18 22:07 APTT 79 SECONDS (21-34) H D 05/22/18 02:40 Assessment and Plan (1) Respiratory failure Status: Acute (2) COPD with exacerbation Status: Acute (3) CHF (congestive heart failure) Status: Acute
--- NOTE | 2018-05-22 17:42 | CP.PCM.PN ---
Subjective - Date & Time of Evaluation Date of Evaluation: 05/22/18 Time of Evaluation: 08:00 - Subjective Subjective: clinically same Objective - Vital Signs/Intake and Output Vital Signs (last 24 hours): Temp Pulse Resp BP Pulse Ox 97.7 F 82 18 121/80 96 05/22/18 15:00 05/22/18 16:29 05/22/18 15:00 05/22/18 15:46 05/22/18 15:00 Intake and Output: 05/22/18 05/22/18 06:59 18:59 Intake Total 364 420.4 Output Total 800 Balance 364 -379.6 - Medications Medications: Current Medications Albuterol/Ipratropium (Duoneb 3 Mg/0.5 Mg (3 Ml) Ud) 3 ml INH RQ4 [facility] Last Admin: 05/22/18 11:00 Dose: 3 ml Aspirin (Ecotrin) 81 mg PO DAILY [facility] Last Admin: 05/22/18 09:48 Dose: 81 mg Fluticasone/Vilanterol (Breo Ellipta 100-25 Mcg Inh) 1 puff INH RQ24 [facility] Last Admin: 05/22/18 11:00 Dose: 1 puff Furosemide (Lasix) 40 mg IVP DAILY [facility] Last Admin: 05/22/18 09:49 Dose: 40 mg Guaifenesin (Mucinex La) 600 mg PO BID [facility] Stop: 05/23/18 10:01 Last Admin: 05/22/18 17:03 Dose: 600 mg Heparin Sodium/Sodium Chloride (Heparin 27017 Units/250ml 1/2 Normal Saline) 25,000 units in 250 mls @ 8.818 mls/hr IV .Q24H PRN; Protocol PRN Reason: ADJUST RATE PER PROTOCOL Last Admin: 05/21/18 16:51 Dose: 12 units/kg/hr, 8.818 mls/hr Lactobacillus Acidophilus (Bacid Acidophilus) 1 cap PO BID [facility] Stop: 05/23/18 10:01 Last Admin: 05/22/18 17:03 Dose: 1 cap Losartan Potassium (Cozaar) 25 mg PO DAILY [facility] Last Admin: 05/22/18 09:48 Dose: 25 mg Methylprednisolone (Solu-Medrol) 40 mg IV Q8 [facility] Last Admin: 05/22/18 13:42 Dose: 40 mg Metoprolol Tartrate (Lopressor) 25 mg PO Q6H [facility] Last Admin: 05/22/18 15:46 Dose: 25 mg Nicotine (Nicoderm Cq) 1 patch TD RQD [facility] Last Admin: 05/22/18 09:00 Dose: 1 patch Pantoprazole Sodium (Protonix Ec Tab) 40 mg PO DAILY [facility] Last Admin: 05/22/18 09:48 Dose: 40 mg Roflumilast (Daliresp) 500 mcg PO DAILY [facility] Last Admin: 05/22/18 09:48 Dose: 500 mcg Rosuvastatin Calcium (Crestor) 10 mg PO HS [facility] Last Admin: 05/21/18 21:16 Dose: 10 mg Tamsulosin HCl (Flomax) 0.4 mg PO DAILY [facility] Last Admin: 05/22/18 09:48 Dose: 0.4 mg Tiotropium [place] (Spiriva) 18 mcg INH RQ24 [facility] Last Admin: 05/22/18 11:01 Dose: 18 mcg - Labs Labs: 05/22/18 06:42 05/22/18 06:42 PT 13.1 SECONDS (9.7-12.2) H 05/19/18 22:07 INR 1.2 05/19/18 22:07 APTT 79 SECONDS (21-34) H D 05/22/18 02:40 - Constitutional Appears: Well - Head Exam Head Exam: ATRAUMATIC, NORMAL INSPECTION, NORMOCEPHALIC - Eye Exam Eye Exam: EOMI, Normal appearance, PERRL Pupil Exam: NORMAL ACCOMODATION, PERRL - ENT Exam ENT Exam: Mucous Membranes Moist, Normal Exam - Neck Exam Neck Exam: Full ROM, Normal Inspection. absent: Lymphadenopathy - Respiratory Exam Respiratory Exam: Decreased Breath Sounds - Cardiovascular Exam Cardiovascular Exam: REGULAR RHYTHM, +S1, +S2 - GI/Abdominal Exam GI & Abdominal Exam: Soft, Diminished Bowel Sounds - Rectal Exam Rectal Exam: Deferred
[2018-05-22] MEDS: Heparin25000 units/250ml 1/2NS 25,000 UNITS/250 ML BAG IV PRN (22:34)
--- NOTE | 2018-05-22 23:05 | CP.PCM.PN ---
Subjective - Date & Time of Evaluation Date of Evaluation: 05/22/18 Time of Evaluation: 10:30 - Subjective Subjective: Feels fine breathing better less wheezing TELE: aflutter Objective - Vital Signs/Intake and Output Vital Signs (last 24 hours): Temp Pulse Resp BP Pulse Ox 97.7 F 70 18 113/86 96 05/22/18 15:00 05/22/18 20:09 05/22/18 15:00 05/22/18 21:18 05/22/18 15:00 Intake and Output: 05/22/18 05/23/18 18:59 06:59 Intake Total 420.4 714 Output Total 800 Balance -379.6 714 - Medications Medications: Current Medications Albuterol/Ipratropium (Duoneb 3 Mg/0.5 Mg (3 Ml) Ud) 3 ml INH RQ4 [facility] Last Admin: 05/22/18 11:00 Dose: 3 ml Aspirin (Ecotrin) 81 mg PO DAILY [facility] Last Admin: 05/22/18 09:48 Dose: 81 mg Fluticasone/Vilanterol (Breo Ellipta 100-25 Mcg Inh) 1 puff INH RQ24 [facility] Last Admin: 05/22/18 11:00 Dose: 1 puff Furosemide (Lasix) 40 mg IVP DAILY [facility] Last Admin: 05/22/18 09:49 Dose: 40 mg Guaifenesin (Mucinex La) 600 mg PO BID [facility] Stop: 05/23/18 10:01 Last Admin: 05/22/18 17:03 Dose: 600 mg Heparin Sodium/Sodium Chloride (Heparin 57909 Units/250ml 1/2 Normal Saline) 25,000 units in 250 mls @ 8.818 mls/hr IV .Q24H PRN; Protocol PRN Reason: ADJUST RATE PER PROTOCOL Last Admin: 05/22/18 22:34 Dose: 12 units/kg/hr, 8.818 mls/hr Lactobacillus Acidophilus (Bacid Acidophilus) 1 cap PO BID [facility] Stop: 05/23/18 10:01 Last Admin: 05/22/18 17:03 Dose: 1 cap Losartan Potassium (Cozaar) 25 mg PO DAILY [facility] Last Admin: 05/22/18 09:48 Dose: 25 mg Methylprednisolone (Solu-Medrol) 40 mg IV Q8 [facility] Last Admin: 12/20/18 21:18 Dose: 40 mg Metoprolol Tartrate (Lopressor) 25 mg PO Q6H [facility] Last Admin: 05/22/18 21:18 Dose: 25 mg Nicotine (Nicoderm Cq) 1 patch TD RQD [facility] Last Admin: 05/22/18 09:00 Dose: 1 patch Pantoprazole Sodium (Protonix Ec Tab) 40 mg PO DAILY [facility] Last Admin: 05/22/18 09:48 Dose: 40 mg Roflumilast (Daliresp) 500 mcg PO DAILY [facility] Last Admin: 05/22/18 09:48 Dose: 500 mcg Rosuvastatin Calcium (Crestor) 10 mg PO HS [facility] Last Admin: 05/22/18 21:18 Dose: 10 mg Tamsulosin HCl (Flomax) 0.4 mg PO DAILY [facility] Last Admin: 05/22/18 09:48 Dose: 0.4 mg Tiotropium [place] (Spiriva) 18 mcg INH RQ24 [facility] Last Admin: 05/22/18 11:01 Dose: 18 mcg - Labs Labs: 05/22/18 06:42 05/22/18 06:42 PT 13.1 SECONDS (9.7-12.2) H 05/19/18 22:07 INR 1.2 05/19/18 22:07 APTT 79 SECONDS (21-34) H D 05/22/18 02:40 - Constitutional Appears: No Acute Distress - Head Exam Head Exam: ATRAUMATIC, NORMAL INSPECTION, NORMOCEPHALIC - Eye Exam Eye Exam: Normal appearance. absent: Scleral icterus - ENT Exam ENT Exam: Mucous Membranes Moist, Normal Oropharynx - Neck Exam Neck Exam: Full ROM. absent: Thyromegaly - Respiratory Exam Respiratory Exam: Rhonchi, Wheezes, NORMAL BREATHING PATTERN. absent: Rales - Cardiovascular Exam Cardiovascular Exam: REGULAR RHYTHM, +S1, +S2. absent: Murmur Additional comments: AICD left chest - GI/Abdominal Exam GI & Abdominal Exam: Soft, Normal Bowel Sounds. absent: Tenderness, Organomegaly - Extremities Exam Extremities Exam: Full ROM, Normal Inspection. absent: Calf Tenderness - Neurological Exam Neurological Exam: Alert, Awake, Oriented x3 - Psychiatric Exam Psychiatric exam: Normal Affect, Normal Mood - Skin Skin Exam: Dry, Warm. absent: Rash Assessment and Plan - Assessment and Plan (Free Text) Assessment: 77-year-old with chronic COPD [id number] with chronic COPD emphysema history of heavy smoking AICD placement history of severe systolic dysfunction NICM Aflutter: -patient has a Chadsvasc score of at least 4.... justifying use of anticoagulation.... Eliquis 5 BID D/C Heparin GTT after 1st dose of eliquis continue optimal therapy for heart failure including change to a long acting beta xuan such as car carvedilol, - cont ARB, lasix, .... Entresto should be considered as an outpatient, as well as need to restore rhythm to NSR as outpatient with his mechanical planner. .... Rate is controlled for now .... continue Rx and supportive care for COPD .....F/U with his mechanical planner group Dr. Michele ..... PT, d/c planning
[2018-05-23] MEDS: Albuterol-Ipratrop 3 mg / 0.5 (3 ml) UD INH SCH ×6 (00:40→20:50)
[2018-05-23] MEDS ORDERED: Heparin25000 units/250ml 1/2NS 25,000 UNITS/250 ML BAG IV PRN (03:45)
[2018-05-23] MEDS: MethylPREDNISolone 40 mg Vial IV SCH (05:00)
[2018-05-23] MEDS: Fluticasone-Vilanterol 100/25mcg Diskus INH SCH (07:58)
[2018-05-23] MEDS: Tiotropium 18 mcg Cap For Inhalation INH SCH (07:58)
[2018-05-23 08:33] LABS: BASO % 0.1 % (0.0-2.0); HEMOGLOBIN 13.7 g/dL (12.0-18.0); LYMPH # 0.3 K/uL (1.0-4.3); LYMPH % 2.5 % (20.0-40.0); MEAN CELL VOLUME 98.6 fL (80.0-94.0); MEAN CORPUSCULAR HEMOGLOBIN 32.6 pg (27.0-31.0); MEAN CORPUSCULAR HGB CONC 33.1 g/dL (33.0-37.0); MEAN PLATELET VOLUME 10.8 fL (7.2-11.7); MONO # 0.5 K/uL (0.0-0.8); MONO % 3.9 % (0.0-10.0); NEUT # 10.9 K/uL (1.8-7.0); NEUT % 93.5 % (50.0-75.0); PLATELET COUNT 173 K/uL (130-400); RED CELL DISTRIBUTION WIDTH 15.4 % (11.5-14.5); WHITE BLOOD COUNT 11.7 K/uL (4.8-10.8)
[2018-05-23] MEDS: guaiFENesin 600 mg ER Tab PO SCH (09:06)
[2018-05-23] MEDS: Pantoprazole 40 mg EC Tab PO SCH (09:07)
[2018-05-23] MEDS: Lactobacillus Acidophilus 500 MU Cap PO SCH (09:07)
[2018-05-23 09:17] LABS: LYMPHOCYTE 3 % (20-40); MONOCYTE 4 % (0-10); NEUTROPHIL 93 % (50-75); PLATELET ESTIMATE NORMAL (NORMAL); TOTAL CELLS COUNTED 100
[2018-05-23 09:38] LABS: ALB/GLOB RATIO 1.2 (1.0-2.1); ALBUMIN 3.5 g/dL (3.5-5.0); CALCIUM 8.6 mg/dl (8.6-10.4)
[2018-05-23] MEDS ORDERED: MethylPREDNISolone 40 mg Vial IVP SCH (10:00)
[2018-05-23] MEDS ORDERED: Benzocaine/Menthol (Cepacol) Lozenge MT PRN (10:37)
--- NOTE | 2018-05-23 10:47 | CP.PCM.PN ---
Subjective - Date & Time of Evaluation Date of Evaluation: 05/23/18 Time of Evaluation: 10:43 - Subjective Subjective: Medicine Note for Dr. Jim Issa's Service Patient was seen and examined at bedside. Patient reports his breathing has improved since admission but still has some wheezing and producing a lot of sputum, however he still feels dependant on the O2 via [place]. Denied fever, chills, chest pain, abdominal pain, n/v/d/c, or urinary symptoms. Objective - Vital Signs/Intake and Output Vital Signs (last 24 hours): Temp Pulse Resp BP Pulse Ox 97.6 F 80 20 115/82 98 05/23/18 07:37 05/23/18 07:37 05/23/18 07:37 05/23/18 09:18 05/23/18 07:37 Intake and Output: 05/23/18 05/23/18 06:59 18:59 Intake Total 764 Balance 764 - Medications Medications: Current Medications Albuterol/Ipratropium (Duoneb 3 Mg/0.5 Mg (3 Ml) Ud) 3 ml INH RQ4 [facility] Last Admin: 05/23/18 07:58 Dose: 3 ml Apixaban (Eliquis) 5 mg PO BID [facility] Last Admin: 05/23/18 09:07 Dose: 5 mg Benzocaine/Menthol (Cepacol Sore Throat) 1 lazaro MT QID PRN PRN Reason: Sore Throat Fluticasone/Vilanterol (Breo Ellipta 100-25 Mcg Inh) 1 puff INH RQ24 [facility] Last Admin: 05/23/18 07:58 Dose: 1 puff Furosemide (Lasix) 40 mg IVP DAILY [facility] Last Admin: 05/22/18 09:49 Dose: 40 mg Losartan Potassium (Cozaar) 25 mg PO DAILY [facility] Last Admin: 05/23/18 09:18 Dose: 25 mg Methylprednisolone (Solu-Medrol) 40 mg IVP Q12 [facility] Last Admin: 05/23/18 09:07 Dose: 40 mg Metoprolol Tartrate (Lopressor) 25 mg PO Q6H [facility] Last Admin: 05/23/18 09:18 Dose: 25 mg Nicotine (Nicoderm Cq) 1 patch TD RQD [facility] Last Admin: 05/23/18 09:07 Dose: 1 patch Pantoprazole Sodium (Protonix Ec Tab) 40 mg PO DAILY [facility] Last Admin: 05/23/18 09:07 Dose: 40 mg Roflumilast (Daliresp) 500 mcg PO DAILY [facility] Last Admin: 05/23/18 09:07 Dose: 500 mcg Rosuvastatin Calcium (Crestor) 10 mg PO HS [facility] Last Admin: 05/22/18 21:18 Dose: 10 mg Tamsulosin HCl (Flomax) 0.4 mg PO DAILY [facility] Last Admin: 05/23/18 09:06 Dose: 0.4 mg Tiotropium [place] (Spiriva) 18 mcg INH RQ24 [facility] Last Admin: 05/23/18 07:58 Dose: 18 mcg - Labs Labs: 05/23/18 08:00 05/23/18 08:00 PT 13.1 SECONDS (9.7-12.2) H 05/19/18 22:07 INR 1.2 05/19/18 22:07 APTT 126 SECONDS (21-34) H* D 05/23/18 02:29 - Additional Findings Additional findings: - Constitutional Appears: No Acute Distress - Head Exam Head Exam: NORMAL INSPECTION, NORMOCEPHALIC - Eye Exam Eye Exam: EOMI, Normal appearance, PERRL Pupil Exam: NORMAL ACCOMODATION - ENT Exam ENT Exam: Mucous Membranes Moist Additional comments: poor dentition - Neck Exam Neck Exam: absent: Lymphadenopathy, Tenderness, Thyromegaly - Respiratory Exam Respiratory Exam: Decreased Breath Sounds, Faint Wheezes - Cardiovascular Exam Cardiovascular Exam: Irregular Rhythm Additional comments: atrial flutter on telemetry and EKG - GI/Abdominal Exam GI & Abdominal Exam: Soft, Normal Bowel Sounds. absent: Distended, Tenderness - Extremities Exam Extremities Exam: Normal Inspection. absent: Pedal Edema, Tenderness - Neurological Exam Neurological Exam: Alert, Awake, Oriented x3 - Psychiatric Exam Psychiatric exam: Normal Affect, Normal Mood - Skin Skin Exam: Dry, Intact, Normal Color, Warm Assessment and Plan - Assessment and Plan (Free Text) Plan: COPD Exacerbation - Pulmonology consulted, Dr. Wilkerson (patient's personal Case Assistant) Management: - Continue Duonebs Q4, Breo Ellipta, Solumedrol 40mg Q12H (will titrate base on clinical improvement), Daliresp daily, Spiriva, Mucinex x 3 days - CXR: no infiltrates or effusions noted, Procal low, negative flu, normal lactate level will DC antibiotics - Continue BiPAP as needed New Onset Atrial Flutter - Cardiology Consulted : Dr. Ma, help appreciated Management: - CHADsVASC score of 4 - Metoprolol 25mg PO Q6H - No prior history of atrial flutter/fibrillation, requested medical records from Dr. 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 All scripts in chart. All management as per Dr. Jim Issa, Candida Belle DO, PGY2
--- NOTE | 2018-05-23 13:11 | CP.PCM.PN ---
Subjective - Date & Time of Evaluation Date of Evaluation: 05/23/18 Time of Evaluation: 10:35 - Subjective Subjective: 77 year old male with PMH of COPD consulted for COPD exacerbation with emphysema. Is using BiPAP. +SOB. Denied fever, chest pain. Patient seen and examined at bedside, lying down comfortably. Afebrile and in no acute distress. Wheezing bilaterally. CXR 05/19 no infiltrates or effusions, mild pulmonary venous congestion Blood culture 05/19 and MRSA 05/20 screening negative, Flu negative normal lactate, antibiotics discontinued. 05/23: WBC 11.7 H, Glucose 113 H, APTT 126 H, Pro-BNP 5160 H ABG 05/19: pCO2 43, pO2 285 H, HCO3 25, pH 7.38, Chloride 111 H, Glucose 145 H Continue duonebs, and steroids. Continue Bipap as needed. Heparin stopped and Eliquis started today. Objective - Vital Signs/Intake and Output Vital Signs (last 24 hours): Temp Pulse Resp BP Pulse Ox 97.6 F 80 20 115/82 98 05/23/18 07:37 05/23/18 07:37 05/23/18 07:37 05/23/18 09:18 05/23/18 07:37 Intake and Output: 05/23/18 05/23/18 06:59 18:59 Intake Total 764 Balance 764 - Medications Medications: Current Medications Albuterol/Ipratropium (Duoneb 3 Mg/0.5 Mg (3 Ml) Ud) 3 ml INH RQ4 [facility] Last Admin: 05/23/18 11:49 Dose: 3 ml Apixaban (Eliquis) 5 mg PO BID [facility] Last Admin: 05/23/18 09:07 Dose: 5 mg Benzocaine/Menthol (Cepacol Sore Throat) 1 lazaro MT QID PRN PRN Reason: Sore Throat Fluticasone/Vilanterol (Breo Ellipta 100-25 Mcg Inh) 1 puff INH RQ24 [facility] Last Admin: 05/23/18 07:58 Dose: 1 puff Furosemide (Lasix) 20 mg IVP DAILY [facility] Losartan Potassium (Cozaar) 25 mg PO DAILY [facility] Last Admin: 05/23/18 09:18 Dose: 25 mg Methylprednisolone (Solu-Medrol) 40 mg IVP Q8H [facility] Metoprolol Tartrate (Lopressor) 25 mg PO Q6H [facility] Last Admin: 05/23/18 09:18 Dose: 25 mg Nicotine (Nicoderm Cq) 1 patch TD RQD [facility] Last Admin: 05/23/18 09:07 Dose: 1 patch Pantoprazole Sodium (Protonix Ec Tab) 40 mg PO DAILY [facility] Last Admin: 05/23/18 09:07 Dose: 40 mg Roflumilast (Daliresp) 500 mcg PO DAILY [facility] Last Admin: 05/23/18 09:07 Dose: 500 mcg Rosuvastatin Calcium (Crestor) 10 mg PO HS [facility] Last Admin: 05/22/18 21:18 Dose: 10 mg Tamsulosin HCl (Flomax) 0.4 mg PO DAILY [facility] Last Admin: 05/23/18 09:06 Dose: 0.4 mg Tiotropium [place] (Spiriva) 18 mcg INH RQ24 [facility] Last Admin: 05/23/18 07:58 Dose: 18 mcg - Labs Labs: 05/23/18 08:00 05/23/18 08:00 PT 13.1 SECONDS (9.7-12.2) H 05/19/18 22:07 INR 1.2 05/19/18 22:07 APTT 126 SECONDS (21-34) H* D 05/23/18 02:29 Assessment and Plan (1) Respiratory failure Status: Acute (2) COPD with exacerbation Status: Acute (3) CHF (congestive heart failure) Status: Acute
--- NOTE | 2018-05-23 18:12 | CP.PCM.PN ---
Subjective - Date & Time of Evaluation Date of Evaluation: 05/23/18 Time of Evaluation: 08:00 - Subjective Subjective: clinically same Objective - Vital Signs/Intake and Output Vital Signs (last 24 hours): Temp Pulse Resp BP Pulse Ox 98.6 F 70 18 111/77 97 05/23/18 15:00 05/23/18 16:02 05/23/18 15:00 05/23/18 15:00 05/23/18 15:00 Intake and Output: 05/23/18 05/23/18 06:59 18:59 Intake Total 764 480 Output Total 700 Balance 764 -220 - Medications Medications: Current Medications Albuterol/Ipratropium (Duoneb 3 Mg/0.5 Mg (3 Ml) Ud) 3 ml INH RQ4 [facility] Last Admin: 05/23/18 11:49 Dose: 3 ml Apixaban (Eliquis) 5 mg PO BID [facility] Last Admin: 05/23/18 09:07 Dose: 5 mg Benzocaine/Menthol (Cepacol Sore Throat) 1 lazaro MT QID PRN PRN Reason: Sore Throat Fluticasone/Vilanterol (Breo Ellipta 100-25 Mcg Inh) 1 puff INH RQ24 [facility] Last Admin: 05/23/18 07:58 Dose: 1 puff Furosemide (Lasix) 20 mg IVP DAILY [facility] Losartan Potassium (Cozaar) 25 mg PO DAILY [facility] Last Admin: 05/23/18 09:18 Dose: 25 mg Methylprednisolone (Solu-Medrol) 40 mg IVP Q8H [facility] Metoprolol Tartrate (Lopressor) 25 mg PO Q6H [facility] Last Admin: 05/23/18 09:18 Dose: 25 mg Nicotine (Nicoderm Cq) 1 patch TD RQD [facility] Last Admin: 05/23/18 09:07 Dose: 1 patch Pantoprazole Sodium (Protonix Ec Tab) 40 mg PO DAILY [facility] Last Admin: 05/23/18 09:07 Dose: 40 mg Roflumilast (Daliresp) 500 mcg PO DAILY [facility] Last Admin: 05/23/18 09:07 Dose: 500 mcg Rosuvastatin Calcium (Crestor) 10 mg PO HS [facility] Last Admin: 05/22/18 21:18 Dose: 10 mg Tamsulosin HCl (Flomax) 0.4 mg PO DAILY [facility] Last Admin: 05/23/18 09:06 Dose: 0.4 mg Tiotropium [place] (Spiriva) 18 mcg INH RQ24 [facility] Last Admin: 05/23/18 07:58 Dose: 18 mcg - Labs Labs: 05/23/18 08:00 05/23/18 08:00 PT 13.1 SECONDS (9.7-12.2) H 05/19/18 22:07 INR 1.2 05/19/18 22:07 APTT 126 SECONDS (21-34) H* D 05/23/18 02:29
[2018-05-23] MEDS: MethylPREDNISolone 40 mg Vial IVP SCH (18:26)
[2018-05-24] MEDS: MethylPREDNISolone 40 mg Vial IVP SCH ×3 (00:34→17:55)
[2018-05-24] MEDS: Albuterol-Ipratrop 3 mg / 0.5 (3 ml) UD INH SCH ×5 (03:00→19:49)
[2018-05-24] MEDS: Pantoprazole 40 mg EC Tab PO SCH (09:57)
[2018-05-24] MEDS: Fluticasone-Vilanterol 100/25mcg Diskus INH SCH (11:26)
[2018-05-24] MEDS: Tiotropium 18 mcg Cap For Inhalation INH SCH (11:27)
--- NOTE | 2018-05-24 16:58 | CP.PCM.PN ---
Subjective - Date & Time of Evaluation Date of Evaluation: 05/24/18 Time of Evaluation: 14:00 - Subjective Subjective: patient seen and examined Still complaining of shortness of breath on exertion and productive cough Afebrile No chest pain Awake and responsive Objective - Vital Signs/Intake and Output Vital Signs (last 24 hours): Temp Pulse Resp BP Pulse Ox 97.1 F L 69 18 119/85 99 05/24/18 08:23 05/24/18 08:23 05/24/18 08:23 05/24/18 09:58 05/24/18 08:23 Intake and Output: 05/24/18 05/24/18 06:59 18:59 Intake Total 400 Balance 400 - Medications Medications: Current Medications Albuterol/Ipratropium (Duoneb 3 Mg/0.5 Mg (3 Ml) Ud) 3 ml INH RQ4 [facility] Last Admin: 05/24/18 16:13 Dose: 3 ml Apixaban (Eliquis) 5 mg PO BID [facility] Last Admin: 05/24/18 09:57 Dose: 5 mg Benzocaine/Menthol (Cepacol Sore Throat) 1 lazaro MT QID PRN PRN Reason: Sore Throat Last Admin: 05/23/18 19:47 Dose: 1 lazaro Fluticasone/Vilanterol (Breo Ellipta 100-25 Mcg Inh) 1 puff INH RQ24 [facility] Last Admin: 05/24/18 11:26 Dose: 1 puff Furosemide (Lasix) 20 mg IVP DAILY [facility] Last Admin: 05/24/18 09:58 Dose: 20 mg Losartan Potassium (Cozaar) 25 mg PO DAILY [facility] Last Admin: 05/24/18 09:58 Dose: 25 mg Methylprednisolone (Solu-Medrol) 40 mg IVP Q8H [facility] Last Admin: 05/24/18 09:58 Dose: 40 mg Metoprolol Tartrate (Lopressor) 25 mg PO Q6H [facility] Last Admin: 05/24/18 09:57 Dose: 25 mg Nicotine (Nicoderm Cq) 1 patch TD RQD [facility] Last Admin: 05/24/18 09:58 Dose: 1 patch Pantoprazole Sodium (Protonix Ec Tab) 40 mg PO DAILY [facility] Last Admin: 05/24/18 09:57 Dose: 40 mg Roflumilast (Daliresp) 500 mcg PO DAILY [facility] Last Admin: 05/24/18 09:57 Dose: 500 mcg Rosuvastatin Calcium (Crestor) 10 mg PO HS [facility] Last Admin: 05/23/18 21:11 Dose: 10 mg Tamsulosin HCl (Flomax) 0.4 mg PO DAILY [facility] Last Admin: 05/24/18 10:00 Dose: 0.4 mg Tiotropium [place] (Spiriva) 18 mcg INH RQ24 [facility] Last Admin: 05/24/18 11:27 Dose: 18 mcg - Labs Labs: 05/23/18 08:00 05/23/18 08:00 PT 13.1 SECONDS (9.7-12.2) H 05/19/18 22:07 INR 1.2 05/19/18 22:07 APTT 126 SECONDS (21-34) H* D 05/23/18 02:29 - Head Exam Head Exam: ATRAUMATIC, NORMOCEPHALIC - ENT Exam ENT Exam: Mucous Membranes Moist - Neck Exam Neck Exam: Normal Inspection - Respiratory Exam Respiratory Exam: Decreased Breath Sounds - Cardiovascular Exam Cardiovascular Exam: REGULAR RHYTHM - GI/Abdominal Exam GI & Abdominal Exam: Soft, Normal Bowel Sounds - Extremities Exam Extremities Exam: Normal Inspection - Neurological Exam Neurological Exam: Alert Assessment and Plan (1) COPD with exacerbation Assessment & Plan: taper steroids Nebulizer treatment Antibiotics Physical therapy ABG room air Status: Acute (2) Respiratory failure Status: Acute (3) CHF (congestive heart failure) Status: Acute
--- NOTE | 2018-05-24 21:07 | CP.PCM.PN ---
Subjective - Date & Time of Evaluation Date of Evaluation: 05/24/18 Time of Evaluation: 08:15 - Subjective Subjective: clinically same Objective - Vital Signs/Intake and Output Vital Signs (last 24 hours): Temp Pulse Resp BP Pulse Ox 98.0 F 81 20 120/69 97 05/24/18 15:00 05/24/18 16:52 05/24/18 15:00 05/24/18 17:54 05/24/18 15:00 Intake and Output: 05/24/18 05/25/18 18:59 06:59 Output Total 650 Balance -650 - Medications Medications: Current Medications Albuterol/Ipratropium (Duoneb 3 Mg/0.5 Mg (3 Ml) Ud) 3 ml INH RQ4 [facility] Last Admin: 05/24/18 19:49 Dose: 3 ml Apixaban (Eliquis) 5 mg PO BID [facility] Last Admin: 05/24/18 17:54 Dose: 5 mg Benzocaine/Menthol (Cepacol Sore Throat) 1 lazaro MT QID PRN PRN Reason: Sore Throat Last Admin: 05/23/18 19:47 Dose: 1 lazaro Fluticasone/Vilanterol (Breo Ellipta 100-25 Mcg Inh) 1 puff INH RQ24 [facility] Last Admin: 05/24/18 11:26 Dose: 1 puff Furosemide (Lasix) 20 mg IVP DAILY [facility] Last Admin: 05/24/18 09:58 Dose: 20 mg Losartan Potassium (Cozaar) 25 mg PO DAILY [facility] Last Admin: 05/24/18 09:58 Dose: 25 mg Methylprednisolone (Solu-Medrol) 40 mg IVP Q8H [facility] Last Admin: 05/24/18 17:55 Dose: 40 mg Metoprolol Tartrate (Lopressor) 25 mg PO Q6H [facility] Last Admin: 05/24/18 17:54 Dose: 25 mg Nicotine (Nicoderm Cq) 1 patch TD RQD [facility] Last Admin: 05/24/18 09:58 Dose: 1 patch Pantoprazole Sodium (Protonix Ec Tab) 40 mg PO DAILY [facility] Last Admin: 05/24/18 09:57 Dose: 40 mg Roflumilast (Daliresp) 500 mcg PO DAILY [facility] Last Admin: 05/24/18 09:57 Dose: 500 mcg Rosuvastatin Calcium (Crestor) 10 mg PO HS [facility] Last Admin: 05/23/18 21:11 Dose: 10 mg Tamsulosin HCl (Flomax) 0.4 mg PO DAILY [facility] Last Admin: 05/24/18 10:00 Dose: 0.4 mg Tiotropium [place] (Spiriva) 18 mcg INH RQ24 [facility] Last Admin: 05/24/18 11:27 Dose: 18 mcg - Labs Labs: 05/23/18 08:00 05/23/18 08:00 PT 13.1 SECONDS (9.7-12.2) H 05/19/18 22:07 INR 1.2 05/19/18 22:07 APTT 126 SECONDS (21-34) H* D 05/23/18 02:29
[2018-05-25] MEDS: Albuterol-Ipratrop 3 mg / 0.5 (3 ml) UD INH SCH ×4 (00:45→11:24)
[2018-05-25] MEDS: MethylPREDNISolone 40 mg Vial IVP SCH ×3 (01:13→17:28)
[2018-05-25] MEDS: Fluticasone-Vilanterol 100/25mcg Diskus INH SCH (07:14)
[2018-05-25] MEDS: Tiotropium 18 mcg Cap For Inhalation INH SCH (07:15)
[2018-05-25] MEDS: Pantoprazole 40 mg EC Tab PO SCH (10:13)
--- NOTE | 2018-05-25 15:03 | CP.PCM.PN ---
Subjective - Date & Time of Evaluation Date of Evaluation: 05/25/18 Time of Evaluation: 13:00 - Subjective Subjective: The patient seen and examined Breathing better Dyspnea on exertion Less cough Afebrile Continue present treatment Taper steroids Objective - Vital Signs/Intake and Output Vital Signs (last 24 hours): Temp Pulse Resp BP Pulse Ox 97.1 F L 70 20 99/53 L 96 05/25/18 07:50 05/25/18 07:50 05/25/18 07:50 05/25/18 10:14 05/25/18 07:50 - Medications Medications: Current Medications Apixaban (Eliquis) 5 mg PO BID [facility] Last Admin: 05/25/18 10:13 Dose: 5 mg Benzocaine/Menthol (Cepacol Sore Throat) 1 lazaro MT QID PRN PRN Reason: Sore Throat Last Admin: 05/23/18 19:47 Dose: 1 lazaro Fluticasone/Vilanterol (Breo Ellipta 100-25 Mcg Inh) 1 puff INH RQ24 [facility] Last Admin: 05/25/18 07:14 Dose: 1 puff Furosemide (Lasix) 20 mg IVP DAILY [facility] Last Admin: 05/25/18 10:14 Dose: 20 mg Losartan Potassium (Cozaar) 25 mg PO DAILY [facility] Last Admin: 05/25/18 10:14 Dose: 25 mg Methylprednisolone (Solu-Medrol) 40 mg IVP Q8H [facility] Last Admin: 05/25/18 10:14 Dose: 40 mg Metoprolol Tartrate (Lopressor) 25 mg PO Q6H [facility] Last Admin: 05/25/18 10:13 Dose: 25 mg Nicotine (Nicoderm Cq) 1 patch TD RQD [facility] Last Admin: 05/24/18 09:58 Dose: 1 patch Pantoprazole Sodium (Protonix Ec Tab) 40 mg PO DAILY [facility] Last Admin: 05/25/18 10:13 Dose: 40 mg Roflumilast (Daliresp) 500 mcg PO DAILY [facility] Last Admin: 05/25/18 10:13 Dose: 500 mcg Rosuvastatin Calcium (Crestor) 10 mg PO HS [facility] Last Admin: 05/24/18 21:40 Dose: 10 mg Tamsulosin HCl (Flomax) 0.4 mg PO DAILY [facility] Last Admin: 05/25/18 10:14 Dose: 0.4 mg Tiotropium [place] (Spiriva) 18 mcg INH RQ24 [facility] Last Admin: 05/25/18 07:15 Dose: 18 mcg - Labs Labs: 05/23/18 08:00 05/23/18 08:00 PT 13.1 SECONDS (9.7-12.2) H 05/19/18 22:07 INR 1.2 05/19/18 22:07 APTT 126 SECONDS (21-34) H* D 05/23/18 02:29 Assessment and Plan (1) COPD with exacerbation Status: Acute (2) Respiratory failure Status: Acute (3) CHF (congestive heart failure) Status: Acute
--- NOTE | 2018-05-25 15:07 | CP.PCM.PN ---
Subjective - Date & Time of Evaluation Date of Evaluation: 05/25/18 Time of Evaluation: 15:20 - Subjective Subjective: No new complaints No CP No dizziness, fevers, chills, N/V Breathing improved on steroid taper Objective - Vital Signs/Intake and Output Vital Signs (last 24 hours): Temp Pulse Resp BP Pulse Ox 97.1 F L 70 20 99/53 L 96 05/25/18 07:50 05/25/18 07:50 05/25/18 07:50 05/25/18 10:14 05/25/18 07:50 - Medications Medications: Current Medications Apixaban (Eliquis) 5 mg PO BID [facility] Last Admin: 05/25/18 10:13 Dose: 5 mg Benzocaine/Menthol (Cepacol Sore Throat) 1 lazaro MT QID PRN PRN Reason: Sore Throat Last Admin: 05/23/18 19:47 Dose: 1 lazaro Fluticasone/Vilanterol (Breo Ellipta 100-25 Mcg Inh) 1 puff INH RQ24 [facility] Last Admin: 05/25/18 07:14 Dose: 1 puff Furosemide (Lasix) 20 mg IVP DAILY [facility] Last Admin: 05/25/18 10:14 Dose: 20 mg Losartan Potassium (Cozaar) 25 mg PO DAILY [facility] Last Admin: 05/25/18 10:14 Dose: 25 mg Methylprednisolone (Solu-Medrol) 40 mg IVP Q8H [facility] Last Admin: 05/25/18 10:14 Dose: 40 mg Metoprolol Tartrate (Lopressor) 25 mg PO Q6H [facility] Last Admin: 05/25/18 10:13 Dose: 25 mg Nicotine (Nicoderm Cq) 1 patch TD RQD [facility] Last Admin: 05/24/18 09:58 Dose: 1 patch Pantoprazole Sodium (Protonix Ec Tab) 40 mg PO DAILY [facility] Last Admin: 05/25/18 10:13 Dose: 40 mg Roflumilast (Daliresp) 500 mcg PO DAILY [facility] Last Admin: 05/25/18 10:13 Dose: 500 mcg Rosuvastatin Calcium (Crestor) 10 mg PO HS [facility] Last Admin: 05/24/18 21:40 Dose: 10 mg Tamsulosin HCl (Flomax) 0.4 mg PO DAILY [facility] Last Admin: 05/25/18 10:14 Dose: 0.4 mg Tiotropium [place] (Spiriva) 18 mcg INH RQ24 [facility] Last Admin: 05/25/18 07:15 Dose: 18 mcg - Labs Labs: 05/23/18 08:00 05/23/18 08:00 PT 13.1 SECONDS (9.7-12.2) H 05/19/18 22:07 INR 1.2 05/19/18 22:07 APTT 126 SECONDS (21-34) H* D 05/23/18 02:29 - Constitutional Appears: No Acute Distress - Head Exam Head Exam: ATRAUMATIC, NORMAL INSPECTION, NORMOCEPHALIC - Eye Exam Eye Exam: EOMI, Normal appearance - ENT Exam ENT Exam: Mucous Membranes Moist, Normal Oropharynx - Neck Exam Neck Exam: Full ROM, Normal Inspection. absent: Tenderness - Respiratory Exam Respiratory Exam: Clear to Ausculation Bilateral (distant breath sounds). absent: Rales, Rhonchi, Wheezes - Cardiovascular Exam Cardiovascular Exam: REGULAR RHYTHM, +S1, +S2. absent: Murmur - GI/Abdominal Exam GI & Abdominal Exam: Soft, Normal Bowel Sounds. absent: Tenderness - Extremities Exam Extremities Exam: Full ROM. absent: Pedal Edema - Neurological Exam Neurological Exam: Alert, Awake, Oriented x3 - Psychiatric Exam Psychiatric exam: Normal Affect, Normal Mood - Skin Skin Exam: Normal Color, Warm Assessment and Plan - Assessment and Plan (Free Text) Assessment: 77-year-old with chronic COPD [id number] with chronic COPD emphysema history of heavy smoking AICD placement history of severe systolic dysfunction NICM Aflutter: -patient has a Chadsvasc score of at least 4.... justifying use of anticoagulation.... Tolerating Eliquis 5 BID Heparin dc'd continue optimal therapy for heart failure including change to a long acting beta xuan such as car carvedilol, - cont ARB, lasix, .... Entresto should be considered as an outpatient, as well as need to restore rhythm to NSR as outpatient with his croze cutter helper. .... Rate is controlled for now .... continue Rx and supportive care for COPD .....F/U with his croze cutter helper group Dr. Michele ..... PT, d/c planning
--- NOTE | 2018-05-25 21:21 | CP.PCM.PN ---
Subjective - Date & Time of Evaluation Date of Evaluation: 05/25/18 Time of Evaluation: 08:00 - Subjective Subjective: clinically same Objective - Vital Signs/Intake and Output Vital Signs (last 24 hours): Temp Pulse Resp BP Pulse Ox 98.4 F 82 18 113/86 95 05/25/18 15:00 05/25/18 16:00 05/25/18 15:00 05/25/18 17:33 05/25/18 15:00 - Medications Medications: Current Medications Apixaban (Eliquis) 5 mg PO BID [facility] Last Admin: 05/25/18 17:33 Dose: 5 mg Benzocaine/Menthol (Cepacol Sore Throat) 1 lazaro MT QID PRN PRN Reason: Sore Throat Last Admin: 05/23/18 19:47 Dose: 1 lazaro Fluticasone/Vilanterol (Breo Ellipta 100-25 Mcg Inh) 1 puff INH RQ24 [facility] Last Admin: 05/25/18 07:14 Dose: 1 puff Furosemide (Lasix) 20 mg IVP DAILY [facility] Last Admin: 05/25/18 10:14 Dose: 20 mg Losartan Potassium (Cozaar) 25 mg PO DAILY [facility] Last Admin: 05/25/18 10:14 Dose: 25 mg Methylprednisolone (Solu-Medrol) 40 mg IVP Q8H [facility] Last Admin: 05/25/18 17:28 Dose: 40 mg Metoprolol Tartrate (Lopressor) 25 mg PO Q6H [facility] Last Admin: 05/25/18 17:33 Dose: 25 mg Nicotine (Nicoderm Cq) 1 patch TD RQD [facility] Last Admin: 05/24/18 09:58 Dose: 1 patch Pantoprazole Sodium (Protonix Ec Tab) 40 mg PO DAILY [facility] Last Admin: 05/25/18 10:13 Dose: 40 mg Roflumilast (Daliresp) 500 mcg PO DAILY [facility] Last Admin: 05/25/18 10:13 Dose: 500 mcg Rosuvastatin Calcium (Crestor) 10 mg PO HS [facility] Last Admin: 05/24/18 21:40 Dose: 10 mg Tamsulosin HCl (Flomax) 0.4 mg PO DAILY [facility] Last Admin: 05/25/18 10:14 Dose: 0.4 mg Tiotropium [place] (Spiriva) 18 mcg INH RQ24 [facility] Last Admin: 05/25/18 07:15 Dose: 18 mcg - Labs Labs: 05/23/18 08:00 05/23/18 08:00 PT 13.1 SECONDS (9.7-12.2) H 05/19/18 22:07 INR 1.2 05/19/18 22:07 APTT 126 SECONDS (21-34) H* D 05/23/18 02:29
[2018-05-26] MEDS: MethylPREDNISolone 40 mg Vial IVP SCH ×3 (02:08→17:33)
--- NOTE | 2018-05-26 09:04 | CP.PCM.PN ---
<Fox De La Vega - Last Filed: 05/26/18 14:03> Subjective - Date & Time of Evaluation Date of Evaluation: 05/26/18 Time of Evaluation: 09:04 - Subjective Subjective: PGY2 Medicine Note for Dr. Tana Issa Patient seen and examined this morning at bedside. Patient states that he is feeling well and would like to go home. He is still producing a lot of phlegm but is other atkins feeling well. His breathing has been well controlled and denies any recent wheezing or shortness of breath. Patient has no new complaints today. Objective - Vital Signs/Intake and Output Vital Signs (last 24 hours): Temp Pulse Resp BP Pulse Ox 97.6 F 71 18 110/83 99 05/26/18 07:31 05/26/18 08:08 05/26/18 07:31 05/26/18 07:31 05/26/18 07:31 Intake and Output: 05/26/18 05/26/18 06:59 18:59 Intake Total 500 Output Total 600 Balance -100 - Medications Medications: Current Medications Apixaban (Eliquis) 5 mg PO BID [facility] Last Admin: 05/25/18 17:33 Dose: 5 mg Benzocaine/Menthol (Cepacol Sore Throat) 1 lazaro MT QID PRN PRN Reason: Sore Throat Last Admin: 05/23/18 19:47 Dose: 1 lazaro Fluticasone/Vilanterol (Breo Ellipta 100-25 Mcg Inh) 1 puff INH RQ24 [facility] Last Admin: 05/25/18 07:14 Dose: 1 puff Furosemide (Lasix) 20 mg IVP DAILY [facility] Last Admin: 05/25/18 10:14 Dose: 20 mg Losartan Potassium (Cozaar) 25 mg PO DAILY [facility] Last Admin: 05/25/18 10:14 Dose: 25 mg Methylprednisolone (Solu-Medrol) 40 mg IVP Q8H [facility] Last Admin: 05/26/18 02:08 Dose: 40 mg Metoprolol Tartrate (Lopressor) 25 mg PO Q6H [facility] Last Admin: 05/26/18 05:06 Dose: Not Given Nicotine (Nicoderm Cq) 1 patch TD RQD [facility] Last Admin: 05/26/18 08:25 Dose: 1 patch Pantoprazole Sodium (Protonix Ec Tab) 40 mg PO DAILY [facility] Last Admin: 05/25/18 10:13 Dose: 40 mg Roflumilast (Daliresp) 500 mcg PO DAILY [facility] Last Admin: 05/25/18 10:13 Dose: 500 mcg Rosuvastatin Calcium (Crestor) 10 mg PO HS [facility] Last Admin: 05/25/18 21:42 Dose: 10 mg Tamsulosin HCl (Flomax) 0.4 mg PO DAILY [facility] Last Admin: 05/25/18 10:14 Dose: 0.4 mg Tiotropium [place] (Spiriva) 18 mcg INH RQ24 [facility] Last Admin: 05/25/18 07:15 Dose: 18 mcg - Labs Labs: 05/23/18 08:00 05/23/18 08:00 PT 13.1 SECONDS (9.7-12.2) H 05/19/18 22:07 INR 1.2 05/19/18 22:07 APTT 126 SECONDS (21-34) H* D 05/23/18 02:29 - Constitutional Appears: Non-toxic, No Acute Distress, Chronically Ill - Head Exam Head Exam: ATRAUMATIC, NORMOCEPHALIC - Eye Exam Eye Exam: Normal appearance - ENT Exam ENT Exam: Mucous Membranes Moist - Neck Exam Neck Exam: absent: Lymphadenopathy - Respiratory Exam Respiratory Exam: Clear to Ausculation Bilateral, NORMAL BREATHING PATTERN. absent: Accessory Muscle Use, Rales, Rhonchi, Wheezes, Respiratory Distress - Cardiovascular Exam Cardiovascular Exam: Irregular Rhythm (a flutter on tele), +S1, +S2 - GI/Abdominal Exam GI & Abdominal Exam: Soft. absent: Distended, Firm, Guarding, Rigid, Tenderness - Extremities Exam Extremities Exam: absent: Calf Tenderness, Pedal Edema - Neurological Exam Neurological Exam: Alert, Awake, Oriented x3 - Psychiatric Exam Psychiatric exam: Normal Affect, Normal Mood - Skin Skin Exam: Dry, Warm Assessment and Plan - Assessment and Plan (Free Text) Plan: COPD Exacerbation - Pulmonology consulted, Dr. Wilkerson (patient's personal Switchbox Assembler) Management: - Continue Duonebs Q4, Breo Ellipta, Solumedrol 40mg Q12H (will titrate base on clinical improvement), Daliresp daily, Spiriva, Mucinex x 3 days - CXR: no infiltrates or effusions noted, Procal low, negative flu, normal lactate level will DC antibiotics - Continue BiPAP as needed New Onset Atrial Flutter - Cardiology Consulted : Dr. Ma, help appreciated * continue optimal therapy for heart failure including change to a long acting beta xuan such as carvedilol * cont ARB, lasix * Entresto should be considered as an outpatient, as well as need to restore rhythm to NSR as outpatient with his architectural renderer. * Rate is controlled for now * continue Rx and supportive care for COPD * F/U with his architectural renderer group Dr. 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 He will be on a steroid taper: 40mg by mouth daily for 3 days, 30mg by mouth for 3 days, 20mg by mouth for 3 days, and finally 10mg by mouth for 3 days. Patient is to follow up with Dr. Jim Issa in 1-2 weeks for routine follow up. Patient is to continue radiation for his prostate cancer (Dr. Jasper De Anda is the urologist on the case). Due to the irregular heart rate you will be taking a blood thinner Eliquis 5 mg by mouth twice a day. Please STOP TAKING ASPIRIN. This blood thinner is to prevent the risk of developing a clot in your brain or heart. If you start to experience nose bleeds, blood in the urine or stool, please stop taking Eliquis and see Dr. Jim Issa SORAYA. Please take care and be well! All management as per Dr. Tana Olivaresn PGY2 <Antoni Issa - Last Filed: 05/27/18 11:56> Objective - Vital Signs/Intake and Output Vital Signs (last 24 hours): Temp Pulse Resp BP Pulse Ox 97.2 F L 87 18 113/78 98 05/27/18 07:45 05/27/18 08:54 05/27/18 07:45 05/27/18 09:45 05/27/18 07:45 - Medications Medications: Current Medications Apixaban (Eliquis) 5 mg PO BID [facility] Last Admin: 05/27/18 09:45 Dose: 5 mg Benzocaine/Menthol (Cepacol Sore Throat) 1 lazaro MT QID PRN PRN Reason: Sore Throat Last Admin: 05/23/18 19:47 Dose: 1 lazaro Fluticasone/Vilanterol (Breo Ellipta 100-25 Mcg Inh) 1 puff INH RQ24 [facility] Last Admin: 05/27/18 11:17 Dose: 1 puff Furosemide (Lasix) 20 mg IVP DAILY [facility] Last Admin: 05/27/18 09:45 Dose: 20 mg Losartan Potassium (Cozaar) 25 mg PO DAILY [facility] Last Admin: 05/27/18 09:45 Dose: 25 mg Methylprednisolone (Solu-Medrol) 40 mg IVP Q8H [facility] Last Admin: 05/27/18 09:44 Dose: 40 mg Metoprolol Tartrate (Lopressor) 25 mg PO Q6H [facility] Last Admin: 05/27/18 09:45 Dose: 25 mg Nicotine (Nicoderm Cq) 1 patch TD RQD [facility] Last Admin: 05/27/18 08:52 Dose: 1 patch Pantoprazole Sodium (Protonix Ec Tab) 40 mg PO DAILY [facility] Last Admin: 05/27/18 09:45 Dose: 40 mg Roflumilast (Daliresp) 500 mcg PO DAILY [facility] Last Admin: 05/27/18 09:45 Dose: 500 mcg Rosuvastatin Calcium (Crestor) 10 mg PO HS [facility] Last Admin: 05/26/18 21:19 Dose: 10 mg Tamsulosin HCl (Flomax) 0.4 mg PO DAILY [facility] Last Admin: 05/27/18 09:45 Dose: 0.4 mg Tiotropium [place] (Spiriva) 18 mcg INH RQ24 [facility] Last Admin: 05/27/18 11:16 Dose: 18 mcg - Labs Labs: 05/23/18 08:00 05/23/18 08:00 PT 13.1 SECONDS (9.7-12.2) H 05/19/18 22:07 INR 1.2 05/19/18 22:07 APTT 126 SECONDS (21-34) H* D 05/23/18 02:29 Attending/Attestation - Attestation I have personally seen and examined this patient.: Yes I have fully participated in the care of the patient.: Yes I have reviewed all pertinent clinical information, including history, physical exam and plan: Yes Notes (Text): 05/27/18 11:55 case seen and [facility] staff and resident, concurred with finding and management.. Patient for discharge after oxygen set up to discuss and discussed with the son will consider discharging the patient's today
[2018-05-26] MEDS: Pantoprazole 40 mg EC Tab PO SCH (09:44)
[2018-05-26] MEDS: Tiotropium 18 mcg Cap For Inhalation INH SCH (11:18)
[2018-05-26] MEDS: Fluticasone-Vilanterol 100/25mcg Diskus INH SCH (11:19)
--- NOTE | 2018-05-26 14:00 | CP.PCM.PN ---
Subjective - Date & Time of Evaluation Date of Evaluation: 05/26/18 Time of Evaluation: 11:00 - Subjective Subjective: patient seen and examined Patient wants to go home Still complaining of productive cough and dyspnea on exertion Feeling better Afebrile Medrol Micheal Nebulizer treatment Antibiotics Follow up in the office Objective - Vital Signs/Intake and Output Vital Signs (last 24 hours): Temp Pulse Resp BP Pulse Ox 98.1 F 71 18 92/62 L 97 05/26/18 11:10 05/26/18 12:00 05/26/18 11:10 05/26/18 11:10 05/26/18 11:10 Intake and Output: 05/26/18 05/26/18 06:59 18:59 Intake Total 500 Output Total 600 Balance -100 - Medications Medications: Current Medications Apixaban (Eliquis) 5 mg PO BID [facility] Last Admin: 05/26/18 09:44 Dose: 5 mg Benzocaine/Menthol (Cepacol Sore Throat) 1 lazaro MT QID PRN PRN Reason: Sore Throat Last Admin: 05/23/18 19:47 Dose: 1 lazaro Fluticasone/Vilanterol (Breo Ellipta 100-25 Mcg Inh) 1 puff INH RQ24 [facility] Last Admin: 05/26/18 11:19 Dose: 1 puff Furosemide (Lasix) 20 mg IVP DAILY [facility] Last Admin: 05/26/18 09:44 Dose: 20 mg Losartan Potassium (Cozaar) 25 mg PO DAILY [facility] Last Admin: 05/26/18 09:44 Dose: 25 mg Methylprednisolone (Solu-Medrol) 40 mg IVP Q8H [facility] Last Admin: 05/26/18 09:44 Dose: 40 mg Metoprolol Tartrate (Lopressor) 25 mg PO Q6H [facility] Last Admin: 05/26/18 09:44 Dose: 25 mg Nicotine (Nicoderm Cq) 1 patch TD RQD [facility] Last Admin: 05/26/18 08:25 Dose: 1 patch Pantoprazole Sodium (Protonix Ec Tab) 40 mg PO DAILY [facility] Last Admin: 05/26/18 09:44 Dose: 40 mg Roflumilast (Daliresp) 500 mcg PO DAILY [facility] Last Admin: 05/26/18 09:45 Dose: 500 mcg Rosuvastatin Calcium (Crestor) 10 mg PO HS [facility] Last Admin: 05/25/18 21:42 Dose: 10 mg Tamsulosin HCl (Flomax) 0.4 mg PO DAILY [facility] Last Admin: 05/26/18 09:44 Dose: 0.4 mg Tiotropium [place] (Spiriva) 18 mcg INH RQ24 [facility] Last Admin: 05/26/18 11:18 Dose: 18 mcg - Labs Labs: 05/23/18 08:00 05/23/18 08:00 PT 13.1 SECONDS (9.7-12.2) H 05/19/18 22:07 INR 1.2 05/19/18 22:07 APTT 126 SECONDS (21-34) H* D 05/23/18 02:29 Assessment and Plan (1) COPD with exacerbation Status: Acute (2) Respiratory failure Status: Acute (3) CHF (congestive heart failure) Status: Acute
--- NOTE | 2018-05-26 14:30 | CP.PCM.PN ---
Subjective - Date & Time of Evaluation Date of Evaluation: 05/26/18 Time of Evaluation: 08:00 - Subjective Subjective: clinically same Objective - Vital Signs/Intake and Output Vital Signs (last 24 hours): Temp Pulse Resp BP Pulse Ox 98.1 F 71 18 92/62 L 97 05/26/18 11:10 05/26/18 12:00 05/26/18 11:10 05/26/18 11:10 05/26/18 11:10 Intake and Output: 05/26/18 05/26/18 06:59 18:59 Intake Total 500 Output Total 600 Balance -100 - Medications Medications: Current Medications Apixaban (Eliquis) 5 mg PO BID [facility] Last Admin: 05/26/18 09:44 Dose: 5 mg Benzocaine/Menthol (Cepacol Sore Throat) 1 lazaro MT QID PRN PRN Reason: Sore Throat Last Admin: 05/23/18 19:47 Dose: 1 lazaro Fluticasone/Vilanterol (Breo Ellipta 100-25 Mcg Inh) 1 puff INH RQ24 [facility] Last Admin: 05/26/18 11:19 Dose: 1 puff Furosemide (Lasix) 20 mg IVP DAILY [facility] Last Admin: 05/26/18 09:44 Dose: 20 mg Losartan Potassium (Cozaar) 25 mg PO DAILY [facility] Last Admin: 05/26/18 09:44 Dose: 25 mg Methylprednisolone (Solu-Medrol) 40 mg IVP Q8H [facility] Last Admin: 05/26/18 09:44 Dose: 40 mg Metoprolol Tartrate (Lopressor) 25 mg PO Q6H [facility] Last Admin: 05/26/18 09:44 Dose: 25 mg Nicotine (Nicoderm Cq) 1 patch TD RQD [facility] Last Admin: 05/26/18 08:25 Dose: 1 patch Pantoprazole Sodium (Protonix Ec Tab) 40 mg PO DAILY [facility] Last Admin: 05/26/18 09:44 Dose: 40 mg Roflumilast (Daliresp) 500 mcg PO DAILY [facility] Last Admin: 05/26/18 09:45 Dose: 500 mcg Rosuvastatin Calcium (Crestor) 10 mg PO HS [facility] Last Admin: 05/25/18 21:42 Dose: 10 mg Tamsulosin HCl (Flomax) 0.4 mg PO DAILY [facility] Last Admin: 05/26/18 09:44 Dose: 0.4 mg Tiotropium [place] (Spiriva) 18 mcg INH RQ24 [facility] Last Admin: 05/26/18 11:18 Dose: 18 mcg - Labs Labs: 05/23/18 08:00 05/23/18 08:00 PT 13.1 SECONDS (9.7-12.2) H 05/19/18 22:07 INR 1.2 05/19/18 22:07 APTT 126 SECONDS (21-34) H* D 05/23/18 02:29 - Constitutional Appears: Well - Head Exam Head Exam: ATRAUMATIC, NORMAL INSPECTION, NORMOCEPHALIC - Eye Exam Eye Exam: EOMI, Normal appearance, PERRL Pupil Exam: NORMAL ACCOMODATION, PERRL - ENT Exam ENT Exam: Mucous Membranes Moist, Normal Exam - Neck Exam Neck Exam: Full ROM, Normal Inspection. absent: Lymphadenopathy - Respiratory Exam Respiratory Exam: Decreased Breath Sounds - Cardiovascular Exam Cardiovascular Exam: REGULAR RHYTHM, +S1, +S2 - GI/Abdominal Exam GI & Abdominal Exam: Soft, Diminished Bowel Sounds - Rectal Exam Rectal Exam: Deferred Assessment and Plan - Assessment and Plan (Free Text) Plan: COPD Exacerbation - Pulmonology consulted, Dr. Wilkerson (patient's personal Customs Entry Clerk) Management: - Continue Duonebs Q4, Breo Ellipta, Solumedrol 40mg Q12H (will titrate base on clinical improvement), Daliresp daily, Spiriva, Mucinex x 3 days - CXR: no infiltrates or effusions noted, Procal low, negative flu, normal lacta te level will DC antibiotics - Continue BiPAP as needed New Onset Atrial Flutter - Cardiology Consulted : Dr. Ma, help appreciated continue optimal therapy for heart failure including change to a long acting beta xuan such as carvedilol cont ARB, lasix Entresto should be considered as an outpatient, as well as need to restore rhythm to NSR as outpatient with his hand cloth examiner. Rate is controlled for now continue Rx and supportive care for COPD F/U with his hand cloth examiner group Dr. 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 He will be on a steroid taper: 40mg by mouth daily for 3 days, 30mg by mouth for 3 days, 20mg by mouth for 3 days, and finally 10mg by mouth for 3 days. Patient is to follow up with Dr. Jim Issa in 1-2 weeks for routine follow up. Patient is to continue radiation for his prostate cancer (Dr. Jasper De Anda is the urologist on the case). Due to the irregular heart rate you will be taking a blood thinner Eliquis 5 mg by mouth twice a day. Please STOP TAKING ASPIRIN. This blood thinner is to prevent the risk of developing a clot in your brain or heart. If you start to experience nose bleeds, blood in the urine or stool, please stop taking Eliquis and see Dr. Jim Issa SORAYA. Please take care and be well!
[2018-05-27] MEDS: MethylPREDNISolone 40 mg Vial IVP SCH ×3 (01:57→16:24)
[2018-05-27] MEDS: Pantoprazole 40 mg EC Tab PO SCH (09:45)
[2018-05-27] MEDS: Tiotropium 18 mcg Cap For Inhalation INH SCH (11:16)
[2018-05-27] MEDS: Fluticasone-Vilanterol 100/25mcg Diskus INH SCH (11:17)
--- NOTE | 2018-05-27 20:19 | CP.PCM.PN ---
Subjective - Date & Time of Evaluation Date of Evaluation: 05/27/18 Time of Evaluation: 07:15 - Subjective Subjective: clinically same Objective - Vital Signs/Intake and Output Vital Signs (last 24 hours): Temp Pulse Resp BP Pulse Ox 97.8 F 70 18 106/77 100 05/27/18 15:00 05/27/18 16:00 05/27/18 15:00 05/27/18 16:24 05/27/18 15:00 - Medications Medications: Current Medications Apixaban (Eliquis) 5 mg PO BID [facility] Last Admin: 05/27/18 17:36 Dose: 5 mg Benzocaine/Menthol (Cepacol Sore Throat) 1 lazaro MT QID PRN PRN Reason: Sore Throat Last Admin: 05/23/18 19:47 Dose: 1 lazaro Fluticasone/Vilanterol (Breo Ellipta 100-25 Mcg Inh) 1 puff INH RQ24 [facility] Last Admin: 05/27/18 11:17 Dose: 1 puff Furosemide (Lasix) 20 mg IVP DAILY [facility] Last Admin: 05/27/18 09:45 Dose: 20 mg Losartan Potassium (Cozaar) 25 mg PO DAILY [facility] Last Admin: 05/27/18 09:45 Dose: 25 mg Methylprednisolone (Solu-Medrol) 40 mg IVP Q8H [facility] Last Admin: 05/27/18 16:24 Dose: 40 mg Metoprolol Tartrate (Lopressor) 25 mg PO Q6H [facility] Last Admin: 05/27/18 16:24 Dose: 25 mg Nicotine (Nicoderm Cq) 1 patch TD RQD [facility] Last Admin: 05/27/18 08:52 Dose: 1 patch Pantoprazole Sodium (Protonix Ec Tab) 40 mg PO DAILY [facility] Last Admin: 05/27/18 09:45 Dose: 40 mg Roflumilast (Daliresp) 500 mcg PO DAILY [facility] Last Admin: 05/27/18 09:45 Dose: 500 mcg Rosuvastatin Calcium (Crestor) 10 mg PO HS [facility] Last Admin: 05/26/18 21:19 Dose: 10 mg Tamsulosin HCl (Flomax) 0.4 mg PO DAILY [facility] Last Admin: 05/27/18 09:45 Dose: 0.4 mg Tiotropium [place] (Spiriva) 18 mcg INH RQ24 [facility] Last Admin: 05/27/18 11:16 Dose: 18 mcg - Labs Labs: 05/23/18 08:00 05/23/18 08:00 PT 13.1 SECONDS (9.7-12.2) H 05/19/18 22:07 INR 1.2 05/19/18 22:07 APTT 126 SECONDS (21-34) H* D 05/23/18 02:29 - Constitutional Appears: Well - Head Exam Head Exam: ATRAUMATIC, NORMAL INSPECTION, NORMOCEPHALIC - Eye Exam Eye Exam: EOMI, Normal appearance, PERRL Pupil Exam: NORMAL ACCOMODATION, PERRL - ENT Exam ENT Exam: Mucous Membranes Moist, Normal Exam - Neck Exam Neck Exam: Full ROM, Normal Inspection. absent: Lymphadenopathy - Respiratory Exam Respiratory Exam: Decreased Breath Sounds - Cardiovascular Exam Cardiovascular Exam: REGULAR RHYTHM, +S1, +S2 - GI/Abdominal Exam GI & Abdominal Exam: Soft, Diminished Bowel Sounds - Rectal Exam Rectal Exam: Deferred
[2018-05-28] MEDS: MethylPREDNISolone 40 mg Vial IVP SCH (00:58)
--- NOTE | 2018-05-28 07:30 | CP.PCM.PN ---
Subjective - Date & Time of Evaluation Date of Evaluation: 05/28/18 Time of Evaluation: 09:45 - Subjective Subjective: Medicine Note for Dr. Jim Issa's Service Patient was seen and examined at bedside. Patient reports he is doing well and eager to go home. ROS unremarkable. Objective - Vital Signs/Intake and Output Vital Signs (last 24 hours): Temp Pulse Resp BP Pulse Ox 97.6 F 69 20 113/78 98 05/28/18 04:30 05/28/18 04:30 05/28/18 04:30 05/28/18 04:47 05/28/18 04:30 - Medications Medications: Current Medications Apixaban (Eliquis) 5 mg PO BID [facility] Last Admin: 05/27/18 17:36 Dose: 5 mg Benzocaine/Menthol (Cepacol Sore Throat) 1 lazaro MT QID PRN PRN Reason: Sore Throat Last Admin: 05/23/18 19:47 Dose: 1 lazaro Fluticasone/Vilanterol (Breo Ellipta 100-25 Mcg Inh) 1 puff INH RQ24 [facility] Last Admin: 05/27/18 11:17 Dose: 1 puff Furosemide (Lasix) 20 mg IVP DAILY [facility] Last Admin: 05/27/18 09:45 Dose: 20 mg Losartan Potassium (Cozaar) 25 mg PO DAILY [facility] Last Admin: 05/27/18 09:45 Dose: 25 mg Methylprednisolone (Solu-Medrol) 40 mg IVP Q8H [facility] Last Admin: 05/28/18 00:58 Dose: 40 mg Metoprolol Tartrate (Lopressor) 25 mg PO Q6H [facility] Last Admin: 05/28/18 04:47 Dose: 25 mg Nicotine (Nicoderm Cq) 1 patch TD RQD [facility] Last Admin: 05/27/18 08:52 Dose: 1 patch Pantoprazole Sodium (Protonix Ec Tab) 40 mg PO DAILY [facility] Last Admin: 05/27/18 09:45 Dose: 40 mg Roflumilast (Daliresp) 500 mcg PO DAILY [facility] Last Admin: 05/27/18 09:45 Dose: 500 mcg Rosuvastatin Calcium (Crestor) 10 mg PO HS [facility] Last Admin: 05/27/18 21:34 Dose: 10 mg Tamsulosin HCl (Flomax) 0.4 mg PO DAILY [facility] Last Admin: 05/27/18 09:45 Dose: 0.4 mg Tiotropium [place] (Spiriva) 18 mcg INH RQ24 [facility] Last Admin: 05/27/18 11:16 Dose: 18 mcg - Labs Labs: 05/23/18 08:00 05/23/18 08:00 PT 13.1 SECONDS (9.7-12.2) H 05/19/18 22:07 INR 1.2 05/19/18 22:07 APTT 126 SECONDS (21-34) H* D 05/23/18 02:29 - Additional Findings Additional findings: - Constitutional Appears: Non-toxic, No Acute Distress, Chronically Ill - Head Exam Head Exam: ATRAUMATIC, NORMOCEPHALIC - Eye Exam Eye Exam: Normal appearance - ENT Exam ENT Exam: Mucous Membranes Moist - Neck Exam Neck Exam: absent: Lymphadenopathy - Respiratory Exam Respiratory Exam: Clear to Ausculation Bilateral, NORMAL BREATHING PATTERN. absent: Accessory Muscle Use, Rales, Rhonchi, Wheezes, Respiratory Distress - Cardiovascular Exam Cardiovascular Exam: Irregular Rhythm (a flutter on tele), +S1, +S2 - GI/Abdominal Exam GI & Abdominal Exam: Soft. absent: Distended, Firm, Guarding, Rigid, Tenderness - Extremities Exam Extremities Exam: absent: Calf Tenderness, Pedal Edema - Neurological Exam Neurological Exam: Alert, Awake, Oriented x3 - Psychiatric Exam Psychiatric exam: Normal Affect, Normal Mood - Skin Skin Exam: Dry, Warm Assessment and Plan - Assessment and Plan (Free Text) Plan: COPD Exacerbation - Pulmonology consulted, Dr. Wilkerson (patient's personal [employer]) Management: - Continue Duonebs Q4, Breo Ellipta, Solumedrol 40mg Q12H (will titrate base on clinical improvement), Daliresp daily, Spiriva, Mucinex x 3 days - CXR: no infiltrates or effusions noted, Procal low, negative flu, normal lactate level will DC antibiotics - Continue BiPAP as needed New Onset Atrial Flutter - Cardiology Consulted : Dr. Ma, help appreciated * continue optimal therapy for heart failure including change to a long acting beta xuan such as carvedilol * cont ARB, lasix * Entresto should be considered as an outpatient, as well as need to restore rhythm to NSR as outpatient with his waste cotton cleaner. * Rate is controlled for now * continue Rx and supportive care for COPD * F/U with his waste cotton cleaner group Dr. 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 He will be on a steroid taper: 40mg by mouth daily for 3 days, 30mg by mouth for 3 days, 20mg by mouth for 3 days, and finally 10mg by mouth for 3 days. Patient is to follow up with Dr. Jim Issa in 1-2 weeks for routine follow up. Patient is to continue radiation for his prostate cancer (Dr. Jasper De Anda is the urologist on the case). Due to the irregular heart rate you will be taking a blood thinner Eliquis 5 mg by mouth twice a day. Please STOP TAKING ASPIRIN. This blood thinner is to prevent the risk of developing a clot in your brain or heart. If you start to experience nose bleeds, blood in the urine or stool, please stop taking Eliquis and see Dr. Jim Issa SORAY[facility]. Please take care and be well! All Management as per Dr. Jim Issa, Candida Belle DO, PGy2
[2018-05-28 07:43] VITALS: RESP 18; O2SAT 99
[2018-05-28 07:44] VITALS: TEMP 97.6
[2018-05-28] MEDS: Tiotropium 18 mcg Cap For Inhalation INH SCH (08:05)
[2018-05-28] MEDS: Fluticasone-Vilanterol 100/25mcg Diskus INH SCH (08:05)
--- NOTE | 2018-05-28 10:11 | CP.PCM.PN ---
Subjective - Date & Time of Evaluation Date of Evaluation: 05/28/18 Time of Evaluation: 10:08 - Subjective Subjective: No new complaints Noted occasional NSVT episodes: ASX Mg level was > 2.0 (appropriate) Breathing improved wishing to go home. Objective - Vital Signs/Intake and Output Vital Signs (last 24 hours): Temp Pulse Resp BP Pulse Ox 97.6 F 70 18 112/83 99 05/28/18 07:00 05/28/18 07:00 05/28/18 07:00 05/28/18 07:00 05/28/18 07:00 Intake and Output: 05/28/18 05/28/18 06:59 18:59 Intake Total 240 Balance 240 - Medications Medications: Current Medications Apixaban (Eliquis) 5 mg PO BID [facility] Last Admin: 05/27/18 17:36 Dose: 5 mg Benzocaine/Menthol (Cepacol Sore Throat) 1 lazaro MT QID PRN PRN Reason: Sore Throat Last Admin: 05/23/18 19:47 Dose: 1 lazaro Fluticasone/Vilanterol (Breo Ellipta 100-25 Mcg Inh) 1 puff INH RQ24 [facility] Last Admin: 05/27/18 11:17 Dose: 1 puff Furosemide (Lasix) 20 mg IVP DAILY [facility] Last Admin: 05/27/18 09:45 Dose: 20 mg Losartan Potassium (Cozaar) 25 mg PO DAILY [facility] Last Admin: 05/27/18 09:45 Dose: 25 mg Methylprednisolone (Solu-Medrol) 40 mg IVP Q2H [facility] Stop: 05/29/18 10:01 Methylprednisolone (Solu-Medrol) 40 mg IVP DAILY [facility] Stop: 06/01/18 10:01 Metoprolol Tartrate (Lopressor) 25 mg PO Q6H [facility] Last Admin: 05/28/18 04:47 Dose: 25 mg Nicotine (Nicoderm Cq) 1 patch TD RQD [facility] Last Admin: 05/28/18 08:58 Dose: 1 patch Pantoprazole Sodium (Protonix Ec Tab) 40 mg PO DAILY [facility] Last Admin: 05/27/18 09:45 Dose: 40 mg Roflumilast (Daliresp) 500 mcg PO DAILY [facility] Last Admin: 05/27/18 09:45 Dose: 500 mcg Rosuvastatin Calcium (Crestor) 10 mg PO HS [facility] Last Admin: 05/27/18 21:34 Dose: 10 mg Tamsulosin HCl (Flomax) 0.4 mg PO DAILY [facility] Last Admin: 05/27/18 09:45 Dose: 0.4 mg Tiotropium [place] (Spiriva) 18 mcg INH RQ24 [facility] Last Admin: 05/27/18 11:16 Dose: 18 mcg - Labs Labs: 05/23/18 08:00 05/23/18 08:00 PT 13.1 SECONDS (9.7-12.2) H 05/19/18 22:07 INR 1.2 05/19/18 22:07 APTT 126 SECONDS (21-34) H* D 05/23/18 02:29 - Constitutional Appears: No Acute Distress, Older Than Stated Age - Head Exam Head Exam: ATRAUMATIC, NORMAL INSPECTION, NORMOCEPHALIC - Eye Exam Eye Exam: EOMI, Normal appearance. absent: Scleral icterus - ENT Exam ENT Exam: Mucous Membranes Moist, Normal Oropharynx - Neck Exam Neck Exam: Full ROM, Normal Inspection. absent: Thyromegaly - Respiratory Exam Respiratory Exam: Clear to Ausculation Bilateral, NORMAL BREATHING PATTERN. absent: Rales, Wheezes - Cardiovascular Exam Cardiovascular Exam: REGULAR RHYTHM, +S1, +S2. absent: Murmur - GI/Abdominal Exam GI & Abdominal Exam: Soft, Normal Bowel Sounds. absent: Tenderness - Extremities Exam Extremities Exam: Normal Inspection. absent: Calf Tenderness, Pedal Edema - Neurological Exam Neurological Exam: Alert, Awake, Oriented x3 Assessment and Plan - Assessment and Plan (Free Text) Assessment: 77-year-old with chronic COPD [id number] with chronic COPD emphysema history of heavy smoking AICD placement history of severe systolic dysfunction NICM Aflutter: -patient has a Chadsvasc score of at least 4.... justifying use of anticoagulation.... Tolerating Eliquis 5 BID Heparin dc'd continue optimal therapy for heart failure including change to a long acting beta xuan such as car carvedilol, - cont ARB, lasix, .... Entresto should be considered as an outpatient, as well as need to restore rhythm to NSR as outpatient with his house coordinator. .... Rate is controlled for now .... continue Rx and supportive care for COPD .... NSVT noted: remains asx, cont Beta xuan, Mg level was ok at >2.0 .....F/U with his house coordinator group Dr. Michele ..... PT, d/c planning
[2018-05-28] MEDS: Pantoprazole 40 mg EC Tab PO SCH (10:45)
[2018-05-28 10:47] VITALS: BP 100/73
[2018-05-28] MEDS ORDERED: MethylPREDNISolone 40 mg Vial IVP SCH (11:45)
--- NOTE | 2018-05-28 14:20 | PCM.HF ---
Heart Failure Core Measure - Heart Failure Ejection Fraction: Less Than 40 % (EF 25-30%) KORIN Inhibitor Prescribed: No Contraindication/Reason for not providing: on arb Beta-Angeline Prescribed: Metoprolol Succinate Angiotensin II Receptor Angeline Prescribed: Yes AnticoagulationTherapy for Atrial Fibrillation/Atrialflutter: Yes Aldosterone Antagonist Prescribed: No Contraindication/Reason for not providing: low BP Hydralazine Nitrate Prescribed: No Contraindication/Reason for not providing: low BP Implantable Cardioverter Defibrillator Therapy: Yes Cardiac Resynchronization Therapy Prescribed: No Contraindication/Reason for not providing: has pacemaker - Follow up Will be discharged to: Home Follow Up Date (must be within 7 days from discharge): 06/02/18 Follow Up Time: 10:00
[2018-05-28 16:20] VITALS: PULSE 49
[2018-05-29] MEDS ORDERED: MethylPREDNISolone 40 mg Vial IVP SCH (10:00)
== END 2018-05-28 14:45 | disposition home or self-care (01) | DRG 193 ==
LOC: C.ER 21:29 → C.9E 22:58 → C.6T 23:28 → C.9E 23:28 → C.9I 05-20 05:44 → C.5S 05-20 17:17
PROVIDERS: ADMIT Internal Medicine Nephrology; ATTEND Internal Medicine Nephrology
DX: J18.9 Pneumonia, unspecified organism (principal); J44.0 Chronic obstructive pulmonary disease with (acute) lower respiratory infection; I50.23 Acute on chronic systolic (congestive) heart failure; J96.90 Respiratory failure, unspecified, unspecified whether with hypoxia or hypercapnia; I13.0 Hypertensive heart and chronic kidney disease with heart failure and stage 1 through stage 4 chronic kidney disease, or unspecified chronic kidney disease; N17.9 Acute kidney failure, unspecified; I42.9 Cardiomyopathy, unspecified; I48.92 Unspecified atrial flutter; I47.2 Ventricular tachycardia; J44.1 Chronic obstructive pulmonary disease with (acute) exacerbation; N18.3 Chronic kidney disease, stage 3 (moderate); J06.9 Acute upper respiratory infection, unspecified; C61 Malignant neoplasm of prostate; N40.0 Benign prostatic hyperplasia without lower urinary tract symptoms; E78.5 Hyperlipidemia, unspecified; E78.00 Pure hypercholesterolemia, unspecified; F17.210 Nicotine dependence, cigarettes, uncomplicated; Z79.82 Long term (current) use of aspirin; Z95.810 Presence of automatic (implantable) cardiac defibrillator